=== PATIENT | male | born 1930 | race African-American/Black ===

== ENCOUNTER 2018-07-21 19:09 | Inpatient (IN) | payer OTHER ==
[2018-07-21] MEDS ORDERED: NA CHLORIDE 0.9% 1,000 ML ONE ×2 (19:55→22:50)
[2018-07-21] MEDS ORDERED: LEVALBUTEROL 1.25 MG/3 ML NEB ONE (19:55)
[2018-07-21] MEDS ORDERED: IPRATROPIUM BROM 0.5MG/2.5ML ONE (19:55)
[2018-07-21 20:10] LABS: Absolute Lymphocytes (CBC) 2.2 K/uL (0.7-4.9); Absolute Monocytes 0.6 K/uL (0.1-1.3); Absolute Neutrophil 4.6 K/uL (1.8-8.0); Basophils % 0.5 % (0-1.3); Eosinophils % 1.9 % (0-4.4); Hematocrit 41.5 % (39.6-49.0); Lymphocytes % 28.7 % (15.3-44.8); MCH 28.3 pg (27.0-35.0); MCV 86.1 fL (80-100); Monocytes % 8.2 % (3.3-12.3); RBC Red Blood Cell Count 4.83 M/uL (4.33-5.43)
[2018-07-21 20:18] LABS: Protime INR 1.12
[2018-07-21 20:40] LABS: Albumin 2.4 g/dL (3.4-5.0); Bilirubin Direct 0.1 mg/dL (0-0.2); Bilirubin Total 0.4 mg/dL (0.2-1.0); Magnesium 1.8 mg/dL (1.8-2.4); Protein, Total 5.7 g/dL (6.4-8.2); Troponin (Emerg Dept Use Only) 0.07 ng/mL (0.0-0.045)
[2018-07-21 20:42] LABS: Potassium 2.9 mmol/L (3.5-5.1)
[2018-07-21] MEDS ORDERED: AZITHROMYCIN 500 MG/250 ML BAG ONE (20:52)
[2018-07-21] MEDS ORDERED: CEFTRIAXONE/SWI 1gm 1 GM/10 ML SYR ONE (20:52)
[2018-07-21] MEDS ORDERED: D50W 25 GM/50 ML SYRINGE IV ONE (21:20)
--- NOTE | 2018-07-21 21:41 | ER ---
Nurse's Notes [facility] Name: Rupert Cole Jr Age: 88 yrs Sex: Male : 1930 Arrival Date: 07/21/2018 Time: 19:11 Bed 15 Private MD: Diagnosis: Cough;Dehydration;Hypokalemia;Pneumonia due to other specified bacteria Presentation: 07/21 19:19 Presenting complaint: Patient states: Persistent cough and right upper back pain for 3 aj weeks. Denies fever. Transition of care: patient was not received from another setting of care. Onset of symptoms was July 04, 2018. Risk Assessment: Do you want to hurt yourself or someone else? Patient reports no desire to harm self or others. Initial Sepsis Screen: Does the patient meet any 2 criteria? No. Patient's initial sepsis screen is negative. Does the patient have a suspected source of infection? No. Patient's initial sepsis screen is negative. Care prior to arrival: None. 19:19 Method Of Arrival: Ambulatory aj 19:19 Acuity: NHUNG 3 aj Triage Assessment: 19:21 General: Appears in no apparent distress. comfortable, Behavior is calm, cooperative, aj appropriate for age. Pain: Complains of pain in right scapular area and right subscapular area. Neuro: Level of Consciousness is awake, alert, obeys commands, Oriented to person, place, time, situation, Appropriate for age. Respiratory: Reports cough that is persistent Airway is patent Respiratory effort is even, unlabored, Respiratory pattern is regular, symmetrical. Derm: Skin is intact, is healthy with good turgor, Skin is pink, warm \T\ dry. normal. Musculoskeletal: Circulation, motion, and sensation intact. Reports pain in right scapular area and right subscapular area. Historical: - Allergies: 19:21 No Known Allergies; aj - Home Meds: 19:21 pravastatin 80 mg oral tab 1 tab once daily [Active]; metoprolol tartrate 50 mg Oral aj tab once daily [Active]; amlodipine 5 mg tab 1 tab once daily [Active]; losartan-hydrochlorothiazide 50-12.5 mg oral tab 1 tab once daily [Active]; aspirin 81 mg Oral chew 1 tab once daily [Active]; - PMHx: 19:21 Hypertension; aj - PSHx: 19:21 None; aj - Immunization history:: Adult Immunizations up to date. - Social history:: Smoking status: Patient/guardian denies using tobacco. - Ebola Screening: : Patient negative for fever greater than or equal to 101.5 degrees Fahrenheit, and additional compatible Ebola Virus Disease symptoms Patient denies exposure to infectious person Patient denies travel to an Ebola-affected area in the 21 days before illness onset No symptoms or risks identified at this time. - Family history:: not pertinent. Screenin:19 Abuse screen: Denies threats or abuse. Nutritional screening: No deficits noted. tl2 Tuberculosis screening: No symptoms or risk factors identified. Fall Risk Gait- Weak (10 pts.). Assessment: 19:30 General: Appears in no apparent distress. uncomfortable, Behavior is calm, cooperative, tl2 appropriate for age. General: Diagnosed with pneumonia by PCP, told to come to ER. Pain: Complains of pain in right mid back and right subscapular area Pain does not radiate. Neuro: Level of Consciousness is awake, alert, obeys commands, Oriented to person, place, time, situation. Cardiovascular: Denies chest pain. Respiratory: Reports shortness of breath cough that is pain with cough Airway is patent Respiratory effort is even, unlabored, Respiratory pattern is regular, symmetrical, Breath sounds are coarse bilaterally. GI: No signs and/or symptoms were reported involving the gastrointestinal system. Derm: Skin is normal. Vital Signs: 19:21 BP 142 / 56; Pulse 89; Resp 17; Temp 98.6; Pulse Ox 98% on R/A; Weight 79.38 kg; Height aj 5 ft. 9 in. (175.26 cm); 20:50 BP 144 / 63; Pulse 79; Resp 20; Pulse Ox 96% on R/A; tl2 21:39 BP 131 / 62; Pulse 83; Resp 17; Pulse Ox 98% on R/A; mt 22:33 BP 122 / 62; Pulse 83; Resp 20; Pulse Ox 100% on R/A; tl2 19:21 Body Mass Index 25.84 (79.38 kg, 175.26 cm) ED Course: 19:11 Patient arrived in ED. rg4 19:19 Triage completed. aj 19:21 Arm band placed on right wrist. Patient placed in an exam room. aj 19:28 Ronaldo Mahajan MD is Attending Physician. prakash 19:32 Missed attempt(s): 22 gauge in left antecubital area. Bleeding controlled, band aid mt applied, catheter tip intact. 19:43 January Barboza, RN is Primary Nurse. tl2 20:09 Radiology exam delayed due to lab results not completed at this time. (BUN/Creatinine). nj 20:12 Influenza Screen (a \T\ B) Sent. tl2 20:13 XRAY Chest (1 view) In Process Unspecified. EDMS 20:32 Radiology exam delayed due to lab results not completed at this time. (BUN/Creatinine). nj 20:40 Radiology exam delayed due to lab results not completed at this time. (BUN/Creatinine). nj 21:33 Radiology exam delayed due to patient is in with dr mahajan getting ej at this time. vr 21:39 Lynda Santos MD is Hospitalizing Provider. [facility] 21:[address] nj 21:46 Chest Abdomen Pelvis Wo Con CT: no oral no iv In Process Unspecified. EDMS 21:46 CT completed. Patient tolerated procedure well. Patient moved back from CT. nj 22:24 Notified ED physician of a critical lab result(s). lactate of 2.1 Dr Mahajan notified. bb 23:19 Patient has correct armband on for positive identification. Placed in gown. Bed in low tl2 position. Call light in reach. Side rails up X2. Adult w/ patient. 23:19 No provider procedures requiring assistance completed. tl2 23:21 Inserted saline lock: 18 gauge in right EJ, using aseptic technique. placed by [facility] tl2 Patient admitted, IV remains in place. Administered Medications: 20:12 Drug: NS 0.9% 1000 ml Route: IV; Rate: 75 ml/hr; Site: left hand; tl2 23:23 Follow up: IV Status: Infusion continued upon admission tl2 20:12 Drug: Xopenex 1.25 mg Route: Inhalation; tl2 20:12 Drug: AtroVENT Aerosol 0.5 mg Route: Inhalation; tl2 20:51 Drug: Rocephin - (cefTRIAXone) 1 grams Route: IVPB; Infused Over: 30 mins; Site: left tl2 hand; 22:30 Follow up: IV Status: Completed infusion tl2 20:51 Drug: Zithromax 500 mg Route: IVPB; Infused Over: 1 hrs; Site: left hand; tl2 22:29 Follow up: IV Status: Completed infusion tl2 21:45 Drug: D50W 25 ml Route: IVP; Site: left hand; tl2 22:00 Follow up: Response: No adverse reaction; Blood sugar is elevated tl2 21:51 Drug: NS 0.9% 1000 ml Route: IV; Rate: 1 bolus; Site: left hand; tl2 23:22 Follow up: IV Status: Completed infusion; IV Intake: 1000ml tl2 22:29 Drug: Potassium Chloride 20 mEq Route: IV; Rate: per protocol; Site: left hand; tl2 23:22 Follow up: IV Status: Infusion continued upon admission tl2 23:22 Not Given (sent upstairs with pt): NS 0.9% with KCl 20 mEq/L 1000 ml IV at 125 ml/hr tl2 continuous Point of Care Testing: Blood Glucose: 22:30 Blood Glucose: 115 mg/dL; tl2 Ranges: Intake: 23:22 IV: 1000ml; Total: 1000ml. tl2 Outcome: 21:40 Decision to Hospitalize by Provider. prakash 23:21 Admitted to Med/surg accompanied by nurse, family with patient, via stretcher, room tl2 231, with chart, Report called to DANIELA Schafer 23:21 Condition: stable 23:21 Discharge instructions given to patient, family, Instructed on the need for admit. 07/22 00:05 Patient left the ED. tl2 Signatures: Dispatcher [employer] EDEdie Wells, Ronaldo Zhu RN, MD MD cha Ballard, Brenda, RN RN bb Davis, Victoria vr Knox, Taylor, RN RN 2 Karen Cook Nathan nj Thompson, Estela mn
--- NOTE | 2018-07-21 21:41 | EDPHYS ---
Physician Documentation [facility] Name: Rupert Cole Jr Age: 88 yrs Sex: Male : 1930 Arrival Date: 07/21/2018 Time: 19:11 Bed 15 Private MD: ED Physician Ronaldo Mahajan HPI: 07/21 19:41 This 88 yrs old Black Male presents to ER via Ambulatory with complaints of Cough, Back prakash Pain. 19:41 The patient or guardian reports cough. Onset: The symptoms/episode began/occurred 2 prakash day(s) ago. Severity of symptoms: At their worst the symptoms were mild, in the emergency department the symptoms are unchanged. Modifying factors: The symptoms are alleviated by nothing, the symptoms are aggravated by supine. Associated signs and symptoms: The patient has no apparent associated signs or symptoms. The patient has not experienced similar symptoms in the past. Historical: - Allergies: 19:21 No Known Allergies; aj - Home Meds: 19:21 pravastatin 80 mg oral tab 1 tab once daily [Active]; metoprolol tartrate 50 mg Oral aj tab once daily [Active]; amlodipine 5 mg tab 1 tab once daily [Active]; losartan-hydrochlorothiazide 50-12.5 mg oral tab 1 tab once daily [Active]; aspirin 81 mg Oral chew 1 tab once daily [Active]; - PMHx: 19:21 Hypertension; aj - PSHx: 19:21 None; aj - Immunization history:: Adult Immunizations up to date. - Social history:: Smoking status: Patient/guardian denies using tobacco. - Ebola Screening: : Patient negative for fever greater than or equal to 101.5 degrees Fahrenheit, and additional compatible Ebola Virus Disease symptoms Patient denies exposure to infectious person Patient denies travel to an Ebola-affected area in the 21 days before illness onset No symptoms or risks identified at this time. - Family history:: not pertinent. ROS: 19:41 Constitutional: Negative for fever, chills, and weight loss, Eyes: Negative for injury, prakash pain, redness, and discharge, ENT: Negative for injury, pain, and discharge, Neck: Negative for injury, pain, and swelling, Cardiovascular: Negative for chest pain, palpitations, and edema, Abdomen/GI: Negative for abdominal pain, nausea, vomiting, diarrhea, and constipation, : Negative for injury, bleeding, discharge, and swelling, MS/Extremity: Negative for injury and deformity, Skin: Negative for injury, rash, and discoloration, Neuro: Negative for headache, weakness, numbness, tingling, and seizure, Psych: Negative for depression, anxiety, suicide ideation, homicidal ideation, and hallucinations, Allergy/Immunology: Negative for hives, rash, and allergies, Endocrine: Negative for neck swelling, polydipsia, polyuria, polyphagia, and marked weight changes, Hematologic/Lymphatic: Negative for swollen nodes, abnormal bleeding, and unusual bruising. 19:41 Respiratory: Positive for cough, pleurisy. 19:41 Back: Positive for pain at rest, pain with movement, of the right subscapular area and right mid back. Exam: 19:41 Constitutional: This is a well developed, well nourished patient who is awake, alert, prakash and in no acute distress. Head/Face: Normocephalic, atraumatic. Eyes: Pupils equal round and reactive to light, extra-ocular motions intact. Lids and lashes normal. Conjunctiva and sclera are non-icteric and not injected. Cornea within normal limits. Periorbital areas with no swelling, redness, or edema. ENT: Nares patent. No nasal discharge, no septal abnormalities noted. Tympanic membranes are normal and external auditory canals are clear. Oropharynx with no redness, swelling, or masses, exudates, or evidence of obstruction, uvula midline. Mucous membranes moist. Neck: Trachea midline, no thyromegaly or masses palpated, and no cervical lymphadenopathy. Supple, full range of motion without nuchal rigidity, or vertebral point tenderness. No Meningismus. Chest/axilla: Normal chest wall appearance and motion. Nontender with no deformity. No lesions are appreciated. Cardiovascular: Regular rate and rhythm with a normal S1 and S2. No gallops, murmurs, or rubs. Normal PMI, no JVD. No pulse deficits. Back: No spinal tenderness. No costovertebral tenderness. Full range of motion. Male : Normal genitalia with no discharge or lesions. Skin: Warm, dry with normal turgor. Normal color with no rashes, no lesions, and no evidence of cellulitis. MS/ Extremity: Pulses equal, no cyanosis. Neurovascular intact. Full, normal range of motion. Neuro: Awake and alert, GCS 15, oriented to person, place, time, and situation. Cranial nerves II-XII grossly intact. Motor strength 5/5 in all extremities. Sensory grossly intact. Cerebellar exam normal. Normal gait. Psych: Awake, alert, with orientation to person, place and time. Behavior, mood, and affect are within normal limits. 19:41 Respiratory: the patient does not display signs of respiratory distress, Respirations: no acute changes, labored breathing, is not present, Breath sounds: rales, that are mild, are located in both bases, rhonchi, that are mild, are scattered. 19:41 Musculoskeletal/extremity: Exam is negative for acute changes, ROM: no acute changes, Circulation is intact in all extremities. DVT Exam: No signs of deep vein thrombosis. no pain, no swelling, no tenderness, negative Homans' sign noted on exam, no appreciated bluish discoloration, no erythema, no increased warmth. Vital Signs: 19:21 BP 142 / 56; Pulse 89; Resp 17; Temp 98.6; Pulse Ox 98% on R/A; Weight 79.38 kg; Height aj 5 ft. 9 in. (175.26 cm); 20:50 BP 144 / 63; Pulse 79; Resp 20; Pulse Ox 96% on R/A; tl2 21:39 BP 131 / 62; Pulse 83; Resp 17; Pulse Ox 98% on R/A; mt 22:33 BP 122 / 62; Pulse 83; Resp 20; Pulse Ox 100% on R/A; tl2 19:21 Body Mass Index 25.84 (79.38 kg, 175.26 cm) Procedures: 21:39 Peripheral line: by aseptic technique a peripheral line was placed in the right [facility] external jugular vein. MDM: 19:28 Patient medically screened. [facility] 19:41 Data reviewed: vital signs, nurses notes, lab test result(s), EKG, radiologic studies, [facility] CT scan, plain films. 07/21 19:40 Order name: Basic Metabolic Panel; Complete Time: 20:57 [facility] 07/21 19:40 Order name: CBC with Diff; Complete Time: 20:57 [facility] 07/21 19:40 Order name: LFT's; Complete Time: 20:57 [facility] 07/21 19:40 Order name: Magnesium; Complete Time: 20:57 [facility] 07/21 19:40 Order name: NT PRO-BNP; Complete Time: 20:57 [facility] 07/21 19:40 Order name: PT-INR; Complete Time: 20:57 [facility] 07/21 19:40 Order name: Troponin (emerg Dept Use Only); Complete Time: 20:57 [facility] 07/21 19:40 Order name: Lipase; Complete Time: 20:57 [facility] 07/21 19:40 Order name: Blood Culture Adult (2) [facility] 07/21 19:40 Order name: Procalcitonin; Complete Time: 20:57 [facility] 07/21 19:40 Order name: Lactate; Complete Time: 20:57 [facility] 07/21 19:41 Order name: Influenza Screen (a \T\ B); Complete Time: 20:57 [facility] 07/21 21:40 Order name: Lactate nj 07/21 21:40 Order name: Lactate EDNV 07/21 19:40 Order name: XRAY Chest (1 view) [facility] 07/21 19:40 Order name: EKG; Complete Time: 19:41 [facility] 07/21 19:40 Order name: Cardiac monitoring; Complete Time: 19:44 [facility] 07/21 21:16 Order name: Chest Abdomen Pelvis Wo Con CT: no oral no iv [facility] 07/21 22:44 Order name: Urine Dipstick--Ancillary (enter results) tn 07/21 23:19 Order name: Urine Dipstick-Ancillary [facility] 07/21 19:40 Order name: EKG - Nurse/Tech; Complete Time: 19:55 [facility] 07/21 19:40 Order name: IV Saline Lock; Complete Time: 19:43 [facility] 07/21 19:40 Order name: Labs collected and sent; Complete Time: 19:43 [facility] 07/21 19:40 Order name: O2 Per Protocol; Complete Time: 19:43 [facility] 07/21 19:40 Order name: O2 Sat Monitoring; Complete Time: 19:43 [facility] Administered Medications: 20:12 Drug: NS 0.9% 1000 ml Route: IV; Rate: 75 ml/hr; Site: left hand; tl2 23:23 Follow up: IV Status: Infusion continued upon admission tl2 20:12 Drug: Xopenex 1.25 mg Route: Inhalation; tl2 20:12 Drug: AtroVENT Aerosol 0.5 mg Route: Inhalation; tl2 20:51 Drug: Rocephin - (cefTRIAXone) 1 grams Route: IVPB; Infused Over: 30 mins; Site: left tl2 hand; 22:30 Follow up: IV Status: Completed infusion tl2 20:51 Drug: Zithromax 500 mg Route: IVPB; Infused Over: 1 hrs; Site: left hand; tl2 22:29 Follow up: IV Status: Completed infusion tl2 21:45 Drug: D50W 25 ml Route: IVP; Site: left hand; tl2 22:00 Follow up: Response: No adverse reaction; Blood sugar is elevated tl2 21:51 Drug: NS 0.9% 1000 ml Route: IV; Rate: 1 bolus; Site: left hand; tl2 23:22 Follow up: IV Status: Completed infusion; IV Intake: 1000ml tl2 22:29 Drug: Potassium Chloride 20 mEq Route: IV; Rate: per protocol; Site: left hand; tl2 23:22 Follow up: IV Status: Infusion continued upon admission tl2 23:22 Not Given (sent upstairs with pt): NS 0.9% with KCl 20 mEq/L 1000 ml IV at 125 ml/hr tl2 continuous Point of Care Testing: Blood Glucose: 22:30 Blood Glucose: 115 mg/dL; tl2 Ranges: Critical Glucose Levels:Adult <50 mg/dl or >400 mg/dl <40 mg/dl or >180 mg/dl Disposition: 07/21/18 21:40 Hospitalization ordered by Lynda Santos for Inpatient Admission. Preliminary diagnosis are Cough, Dehydration, Hypokalemia, Pneumonia due to other specified bacteria. - Bed requested for Telemetry/MedSurg (Inpatient). - Status is Inpatient Admission. tl2 - Condition is Fair. - Problem is new. - Symptoms have improved. UTI on Admission? No Signatures: Dispatcher [employer] [facility] Lucie Arshad RN RN kl Myers, Amanda, RN RN aj Anderson, Corey, MD MD cha Knox, Taylor, RN RN tl2 Corrections: (The following items were deleted from the chart) 21:18 19:41 Chest For PE Angio+CT.RAD.BRZ ordered. [facility] 22:50 21:40 Hospitalization Ordered by Lynda Santos MD for Inpatient Admission. Preliminary kl diagnosis is Cough; Dehydration; Hypokalemia. Bed requested for Telemetry/MedSurg (Inpatient). Status is Inpatient Admission. Condition is Fair. Problem is new. Symptoms have improved. UTI on Admission? No. prakash 22:57 22:50 07/21/2018 21:40 Hospitalization Ordered by Lynda Santos MD for Inpatient prakash Admission. Preliminary diagnosis is Cough; Dehydration; Hypokalemia. Bed requested for Telemetry/MedSurg (Inpatient). Status is Inpatient Admission. Condition is Fair. Problem is new. Symptoms have improved. UTI on Admission? No. kl 07/22 00:05 07/21 22:57 07/21/2018 21:40 Hospitalization Ordered by Lynda Santos MD for Inpatient tl2 Admission. Preliminary diagnosis is Cough; Dehydration; Hypokalemia; Pneumonia due to other specified bacteria. Bed requested for Telemetry/MedSurg (Inpatient). Status is Inpatient Admission. Condition is Fair. Problem is new. Symptoms have improved. UTI on Admission? No. prakash
[2018-07-21] MEDS ORDERED: KCL 20 MEQ/100 mL IVPB 20 MEQ/100 ML BAG IV ONE (22:05)
--- NOTE | 2018-07-21 22:07 | RAD REPORT ---
EXAM DESCRIPTION: Herve Single View07/21/2018 8:13 pm CLINICAL HISTORY: Cough COMPARISON: none FINDINGS: Mild opacity is present within the mid right lung. Left lung appears clear. The heart is n ormal size IMPRESSION: Mild right lung opacity probably represents pneumonia
--- NOTE | 2018-07-21 22:21 | RAD REPORT ---
EXAM DESCRIPTION: CT - Chest Abd Pelvis Wo Con - 07/21/2018 9:46 pm CLINICAL HISTORY: Cough/abdominal pain COMPARISON: None TECHNIQUE: Computed axial tomography of the chest, abdomen and pelvis was obtained. Oral contrast wa s not given. IV contrast was not requested. All CT scans are performed using dose optimization technique as appropriate and may include automated exposure control or mA/KV adjustment according to patient size. FINDINGS: The evaluation of mediastinum, bowel sam, vessels and solid organs is limited secondary to the lack of IV contrast administration No mediastinal or hilar lymphadenopathy is seen. A pleural effusion is not present. A pericardial effusion is not seen. 4 centimeter right upper lobe consolidation is seen. The left lung is clear. The liver, spleen, pancreas, and adrenal appear grossly normal. A 7.8 centimeter low to intermediate density mass extends off the upper pole of the right kidney. Sma ll bilateral renal cysts are suspected. There is no evidence of diverticulitis. The appendix is normal Postsurgical changes of a prostatectomy with lymph node dissection is seen. A 1 centimeters cyst is present within the subcutaneous tissues of right back. Mild to moderate anterior subluxation of L5 on S1 is seen. Spondylolysis involves L5 IMPRESSION: Mild right upper lobe consolidation probably represents pneumonia. This should be follow ed until it is clear to help exclude post obstructive process/underlying mass 7.8 centimeter right renal is nonspecific without IV contrast. It may represent neoplasm. Ultrasound is recommended.
[2018-07-21] MEDS ORDERED: NS KCL 20MEQ 1,000 ML IV ONE (22:50)
[2018-07-21 23:19] LABS: Urine Blood NEGATIVE (NEG); Urine Glucose NEGATIVE (NEG); Urine Protein NEGATIVE (NEG); Urine pH 5.5 (5.0-7.0)
[2018-07-21] MEDS ORDERED: ACETAMINOPHEN 500 MG TAB PO PRN (23:53)
[2018-07-21] MEDS ORDERED: ONDANSETRON 4 MG/2 ML VIAL IV PRN (23:53)
[2018-07-21] MEDS: NA CHLORIDE 0.9% 1,000 ML IV SCH (23:53)
[2018-07-22] MEDS: Levofloxacin 750mg IV 750 MG/150 ML BAG IV SCH (01:03)
[2018-07-22] MEDS ORDERED: KCL 20 MEQ/100 mL IVPB 20 MEQ/100 ML BAG IV SCH (02:00)
[2018-07-22 03:37] LABS: Urine Appearance CLEAR; Urine Bilirubin NEGATIVE (NEG); Urine Blood NEGATIVE (NEG); Urine Color YELLOW; Urine Glucose NEGATIVE (NEG); Urine Protein NEGATIVE (NEG); Urine Specific Gravity 1.015 (1.005-1.030); Urine pH 6.5 (5.0-7.0)
[2018-07-22 03:47] LABS: Urine Microscopic Reflex NO UMIC
[2018-07-22] MEDS: NA CHLORIDE 0.9% 1,000 ML IV SCH ×3 (05:41→15:13)
--- NOTE | 2018-07-22 05:47 | P.HP ---
Certification for Inpatient Patient admitted to: Inpatient With expected LOS: >2 Midnights Practitioner: I am a practitioner with admitting privileges, knowledge of patient current condition, hospital course, and medical plan of care. Services: Services provided to patient in accordance with Admission requirements found in Title 42 Section 412.3 of the Code of Federal Regulations Patient History Date of Service: 07/21/18 Reason for admission: Pneumonia History of Present Illness: Mr Cole is a 89-year-old male with history of CVA, hypertension, who start about 3 weeks ago with productive cough, right upper back pain and progressive shortness of breath. Initially he had yellowish secretions and likely it became bloody. There was no history of fever or chills. Today the patient came to ER for evaluation, since his symptoms got worse. Lab work remarkable for normal WBC count, normal procalcitonin but elevated lactate 3.5. Chest x- ray consistent with right upper lobe infiltrate. CT chest/abdomen and pelvis shows again opacifications on the right side consistent with pneumonia, also incidental 7.8 cm right renal mass found which needs further workup. Allergies No Known Allergies Allergy (Verified 07/21/18 23:52) Home medications list reviewed: Yes Home Medications: Amlodipine [Norvasc] 5 mg PO BEDTIME 07/22/18 Aspirin [Aspirin EC 81 MG] 120 mg PO DAILY 07/22/18 Losartan/Hydrochlorothiazide [Losartan-Hctz 50-12.5 mg Tab] 1 each PO DAILY Metoprolol Succinate [Toprol Xl] 50 mg PO BEDTIME 07/22/18 Pravastatin Sodium 80 mg PO BEDTIME 07/22/18 - Past Medical/Surgical History Has patient received pneumonia vaccine in the past: No Diabetic: No -: cva 2013 -: hypertension -: arthritis -: abdomen surgery -: protate surgery - Family History Family History: Reviewed- Non-Contributory - Social History Smoking Status: Never smoker Alcohol use: No CD- Drugs: No Caffeine use: Yes Place of Residence: Home Review of Systems 10-point ROS is otherwise unremarkable Physical Examination - Vital Signs Temperature: 97.6 F Blood Pressure: 132/61 Pulse: 75 Respirations: 18 Pulse Ox (%): 98 - Physical Exam General: Alert, In no apparent distress HEENT: Atraumatic, PERRLA, Mucous membr. moist/pink, EOMI, Sclerae nonicteric Neck: Supple, 2+ carotid pulse no bruit, No LAD, Without JVD or thyroid abnormality Respiratory: Normal air movement, Crackles/rales (Right base crackles) Cardiovascular: Regular rate/rhythm, Normal S1 S2 Gastrointestinal: Normal bowel sounds, No tenderness Musculoskeletal: No tenderness Integumentary: No rashes Neurological: Normal speech, Normal strength at 5/5 x4 extr, Normal tone, Normal affect Lymphatics: No axilla or inguinal lymphadenopathy - Studies Laboratory Data (last 24 hrs) 07/21/18 19:45: PT 13.2 H, INR 1.12 07/21/18 19:45: WBC 7.6, Hgb 13.7, Hct 41.5, Plt Count 172 07/21/18 19:45: Sodium 148 H, Potassium 2.9 L*, BUN 22 H, Creatinine 1.00, Glucose 71 L, Magnesium 1.8, Total Bilirubin 0.4, AST 13 L, ALT 16, Alkaline Phosphatase 63, Lipase 92 Microbiology Data (last 24 hrs): 07/21/18 19:57 Nasopharnyx Influenza Type A Antigen Screen - Final 07/21/18 19:57 Nasopharnyx Influenza Type B Antigen Screen - Final Assessment and Plan - Problems (Diagnosis) (1) Pneumonia Current Visit: Yes Status: Acute Qualifiers: Pneumonia type: due to unspecified organism Laterality: right Lung location: upper lobe of lung Qualified Code(s): J18.1 - Lobar pneumonia, unspecified organism (2) Hypertension Current Visit: Yes Status: Acute Qualifiers: Hypertension type: essential hypertension Qualified Code(s): I10 - Essential (primary) hypertension - Plan The patient will be admitted to the hospital due to right upper lobe pneumonia. Will order empiric treatment with Levaquin. Blood and sputum culture have been ordered. Order renal ultrasound to address renal mass. - Advance Directives Does patient have a Living Will: No Does patient have a Durable POA for Healthcare: No - Code Status/Comfort Care Code Status Assessed: Yes Code Status: Full Code
[2018-07-22 06:39] LABS: Absolute Lymphocytes (CBC) 1.6 K/uL (0.7-4.9); Absolute Monocytes 0.7 K/uL (0.1-1.3); Absolute Neutrophil 4.6 K/uL (1.8-8.0); Basophils % 0.5 % (0-1.3); Eosinophils % 1.5 % (0-4.4); Hematocrit 35.3 % (39.6-49.0); Lymphocytes % 22.6 % (15.3-44.8); MCH 28.5 pg (27.0-35.0); MCV 85.5 fL (80-100); MPV 10.5 fL (7.6-11.3); Monocytes % 10.1 % (3.3-12.3); RBC Red Blood Cell Count 4.13 M/uL (4.33-5.43)
--- NOTE | 2018-07-22 06:50 | EKG ---
Test Date: 2018-07-21 Test Time: 19:50:51 Director Emergency Services: JIMMY MEASUREMENT RESULTS: Intervals: Rate: 75 TN: 172 QRSD: 82 QT: 396 QTc: 442 Meredith: P: 77 TN: 172 QRS: 20 T: 48 INTERPRETIVE STATEMENTS: Normal sinus rhythm Anteroseptal infarct, age undetermined Abnormal ECG No previous ECG available for comparison Electronically Signed On 07-22-18 06:49:04 CDT by Mario Doe
[2018-07-22 06:52] LABS: Potassium 3.9 mmol/L (3.5-5.1)
[2018-07-22] MEDS ORDERED: POTASSIUM CL SA 10 MEQ TAB PO ONE (06:55)
--- NOTE | 2018-07-22 12:34 | RAD REPORT ---
EXAM DESCRIPTION: US - Renal Ultrasound-Complete - 07/22/2018 12:23 pm CLINICAL HISTORY: Chest pain, abdominal pain, abnormal CT study COMPARISON: CT chest abdomen and pelvis July 21 FINDINGS: The right kidney is grossly abnormal. In the upper pole of the right kidney there is a 9.3 x 7.2 x 8.3 lobulated solid mass. This is the correlate to the CT finding. This is not a cyst or com plex cyst in appearance. No calcifications seen. Large renal cell carcinoma is the most likely etiolo gy. Patient does have 2 benign thin-walled anechoic cysts in the mid right kidney - 2.5 and 2.1 cm in siz e. No right-sided hydronephrosis. The left kidney measures 10.5 x 5.3 x 4.8 cm. Left-sided cortical t hickness and echogenicity are normal.. No left-sided hydronephrosis or solid mass. Left renal benign cortical cysts are present largest at 2.3 cm. No bladder wall thickening or mass. No intraluminal stone or mass. IMPRESSION: Large 9 centimeter solid mass upper pole right kidney as a correlate to the CT finding. Renal cell carcinoma is the most likely etiology. Bilateral renal cysts. No contralateral left renal solid mass.
--- NOTE | 2018-07-22 13:22 | PN ---
Date of Progress Note: 07/22/2018 History: The patient seen and examined. Chart reviewed and case discussed with RN. Family at the [facility]. Treatment plan explained. All questions answered. The patient states his shortness of selena th and coughing is better, not really producing much sputum. Review of Systems: Negative except as above. Code Status: Full. Physical Examination: Vital Signs: Temperature 97.6, heart rate 75, blood pressure 132/61, respirations 18, OS 98% on room air. General: Awake, alert, oriented x3 ill-appearing, elderly male. CV: S1, S2. No murmurs. Regular rate and rhythm. Peripheral pulses present. Respiratory: Diminished breath sounds on the right. No rales, wheezing, crackles. No use of access ory muscles. Gastrointestinal: Abdomen is soft, nontender, nondistended. Positive bowel sounds. Extremities: No clubbing, cyanosis, or edema. Neurologic: Nonfocal. Laboratory Data: Sodium 142, potassium at 3.9, chloride 109, CO2 27, BUN 23, creatinine 1.1, glucose 89. Lactate 1.2, calcium 8.4, magnesium 2. WBC 7, H and H 11.8 and 35.3, platelets 139. Sputum cu ltures and blood cultures pending. Influenza screen negative. CT scan shows right upper lobe consol idation, likely pneumonia, a 7.8 cm right renal lesion, nonspecific. Assessment And Plan: An 88-year-old male with: 1.Right upper lobe pneumonia. Continue with IV antibiotics and follow up with cultures. Speech willie luation. Rule out aspiration. 2.Essential hypertension, stable. 3.Generalized osteoarthritis. 4.Mixed hyperlipidemia. Continue statin. 5.History of cerebrovascular accident without any residual deficits. 6.History of prostate cancer status post surgery. 7.Liver lesion. We will obtain ultrasound for further evaluation. 8.Gastrointestinal, deep vein thrombosis prophylaxis addressed. SA/MODL Voice ID: [id number] Report ID: [id number]
[2018-07-22] MEDS: AMLODIPINE 5 MG TAB PO SCH (21:54)
[2018-07-22] MEDS: METOPROLOL XL 50 MG TAB PO SCH (21:55)
[2018-07-22] MEDS: ATORVASTATIN 10 MG TAB PO SCH (21:55)
[2018-07-23] MEDS: NA CHLORIDE 0.9% 1,000 ML IV SCH ×2 (01:04→05:53)
[2018-07-23] MEDS: Levofloxacin 750mg IV 750 MG/150 ML BAG IV SCH (01:04)
[2018-07-23] MEDS ORDERED: GUAIFENESIN/DM 5 ML UCUP PO ONE ×2 (02:43→02:49)
[2018-07-23 06:19] LABS: Potassium 3.7 mmol/L (3.5-5.1)
[2018-07-23] MEDS: LOSARTAN/HCTZ 50-12.5 PO SCH (08:43)
[2018-07-23] MEDS: ASPIRIN EC 81 MG TAB PO SCH (08:44)
[2018-07-23] MEDS ORDERED: POTASSIUM 25 MEQ EFFERV TAB PO ONE (09:00)
[2018-07-23] MEDS: ALBUTEROL 2.5 MG/3 ML NEB SOL NEB SCH ×2 (13:58→19:53)
--- NOTE | 2018-07-23 15:52 | PN ---
Date of Progress Note: 07/23/2018 History: The patient seen and examined. Chart reviewed and case discussed with RN. [facility]. Treatment plan explained. All questions answered. I spoke with Dr. Bansal concerning narayan bowen's hemoptysis. The patient was informed of his renal ultrasound results yesterday stating that m ost likely he has a right-sided breast cancer. He met with his family members and discussed options including possible biopsy and further diagnostic evaluation versus doing nothing and observing the ca ncer due to his multiple comorbidities as he may not be a good candidate for surgery and chemoradiati on, and the patient has opted for not pursuing diagnosis any further. Review of Systems: Negative except as above. The patient does report some cerumen impaction in his ears. Medications: List reviewed. Physical Examination: Vital Signs: Temperature 98, heart rate 80, blood pressure 140/63, respirations 18, O2 96% on room a ir. General: Awake, alert, oriented x3, elderly male, somewhat ill-appearing. CV: S1 and S2. No murmurs. Peripheral pulses present bilaterally. Respiratory: Diminished breath sounds on the right some mild wheezing gastrointestinal. Abdomen: Abdomen is soft, nontender, nondistended. Positive bowel sounds. Extremities: No clubbing, cyanosis, or edema. Neurologic: Nonfocal. Laboratory Data: Sodium 142, potassium 3.7, chloride 108, CO2 27, BUN 16, creatinine 1.1, glucose 83 , calcium 8.5. Blood cultures no growth to date. Sputum culture shows normal respiratory eduard. Assessment And Plan: An 88-year-old male with: 1.Right upper lobe pneumonia. Continue IV antibiotics. Cultures negative to date. The patient was assessed by speech therapist, recommended aspiration precautions. Otherwise, continue with his regu lar diet, improving. 2.Hemoptysis, may be secondary to pneumonia versus other. CT chest done upon admission did not show any specific mass or source of bleeding. We will obtain pulmonology consultation. No chemical anti coagulation due to hemoptysis and monitor H and H. 3.Essential hypertension, stable. 4.Generalized osteoarthritis. Continue pain medications. 5.Mixed hyperlipidemia. Continue statin. 6.History of cerebrovascular accident without any residual deficits. 7.History of prostate cancer status post surgery. 8.Right-sided 9 cm solid mass, likely renal cell carcinoma. The patient does not wish to pursue any further invasive measures and diagnosis, understands that due to his age and other comorbidities he may not be a good candidate for chemotherapy, radiation therapy, and the family have discussed all op tions. Risks and benefits were provided. They do not wish to pursue the diagnosis any further. The y understand that this may result in further worsening of his cancer and spread even leading to his d eath. They voiced understanding. 9.Cerumen impaction. We will start on ear drops. 10.Gastrointestinal and deep venous thrombosis prophylaxis addressed. No chemical anticoagulation d ue to hemoptysis. /KELLEY Voice ID: [id number] Report ID: [id number]
[2018-07-23] MEDS: CARBAMIDE PEROXIDE EAR DROPS (15 mL) EACH EAR SCH (21:00)
[2018-07-23] MEDS: METOPROLOL XL 50 MG TAB PO SCH (21:43)
[2018-07-23] MEDS: ATORVASTATIN 10 MG TAB PO SCH (21:43)
[2018-07-23] MEDS: AMLODIPINE 5 MG TAB PO SCH (21:44)
[2018-07-24] MEDS: ALBUTEROL 2.5 MG/3 ML NEB SOL NEB SCH ×4 (01:19→20:34)
[2018-07-24 05:19] LABS: Absolute Lymphocytes (CBC) 1.7 K/uL (0.7-4.9); Absolute Monocytes 0.7 K/uL (0.1-1.3); Absolute Neutrophil 4.4 K/uL (1.8-8.0); Basophils % 0.4 % (0-1.3); Eosinophils % 1.6 % (0-4.4); Hematocrit 35.1 % (39.6-49.0); Lymphocytes % 24.3 % (15.3-44.8); MCH 27.9 pg (27.0-35.0); MCV 85.1 fL (80-100); MPV 10.9 fL (7.6-11.3); Monocytes % 9.9 % (3.3-12.3); RBC Red Blood Cell Count 4.13 M/uL (4.33-5.43)
[2018-07-24 05:35] LABS: Potassium 3.4 mmol/L (3.5-5.1)
[2018-07-24] MEDS: CARBAMIDE PEROXIDE EAR DROPS (15 mL) EACH EAR SCH (09:00)
[2018-07-24] MEDS: LOSARTAN/HCTZ 50-12.5 PO SCH (09:00)
[2018-07-24] MEDS ORDERED: POTASSIUM 25 MEQ EFFERV TAB PO ONE (09:00)
[2018-07-24] MEDS: ASPIRIN EC 81 MG TAB PO SCH (09:14)
[2018-07-24] MEDS: levoFLOXacin 500 MG TAB PO SCH (09:14)
--- NOTE | 2018-07-24 10:44 | P.CNS ---
Date of Consult: 07/23/18 Chief Complaint: Hemoptysis and pneumonia History of Present Illness: Patient is 88 years of age very hard of hearing admitted to the hospital complaining of hemoptysis this started last was initially with a cough denies any fever or chills was admitted to the hospital was found to have a right upper lobe infiltrate also found to have a mass in the right kidney denies any chest pain no prior history of cardiopulmonary disease denies any urological symptoms Allergies No Known Allergies Allergy (Verified 07/21/18 23:52) Home Medications: Amlodipine [Norvasc] 5 mg PO BEDTIME 07/22/18 Aspirin [Aspirin EC 81 MG] 81 mg PO DAILY 07/22/18 Losartan/Hydrochlorothiazide [Losartan-Hctz 50-12.5 mg Tab] 1 each PO DAILY Metoprolol Succinate [Toprol Xl] 50 mg PO BEDTIME 07/22/18 Pravastatin Sodium 80 mg PO BEDTIME 07/22/18 - Past Medical/Surgical History Diabetic: No -: cva 2013 -: hypertension -: arthritis -: abdomen surgery -: protate surgery - Social History Alcohol use: No CD- Drugs: No Caffeine use: Yes Place of Residence: Home Review of Systems 10-point ROS is otherwise unremarkable General: Weakness Respiratory: Hemoptysis Physical Examination Temp Pulse Resp BP Pulse Ox 97.3 F 75 18 101/70 96 07/24/18 08:00 07/24/18 09:00 07/24/18 08:00 07/24/18 09:00 07/24/18 08:00 General: Alert, Oriented x3 Neck: Supple Respiratory: Clear to auscultation bilaterally Cardiovascular: No edema, Normal S1 S2 Gastrointestinal: Normal bowel sounds, Soft and benign - Problems (1) Pneumonia Current Visit: Yes Status: Acute Plan: Patient is 88 years of age admitted with hemoptysis he does have a right upper lobe infiltrate quite possible that he has endobronchial metastases most likely he has kidney cancer on the right side she does have a very large mass labs chemistry reviewed is only mildly anemic vital sign satisfactory change to p.o. levofloxacin Qualifiers: Pneumonia type: due to unspecified organism Laterality: right Lung location: upper lobe of lung Qualified Code(s): J18.1 - Lobar pneumonia, unspecified organism
--- NOTE | 2018-07-24 10:45 | P.PN ---
Subjective Date of Service: 07/24/18 Chief Complaint: Hemoptysis and pneumonia Subjective: Improving (Patient is doing better hemoptysis resolved) Review of Systems General: Weakness Respiratory: Cough Physical Examination - Vital Signs Temperature: 97.3 F Blood Pressure: 101/70 Pulse: 75 Respirations: 18 Pulse Ox (%): 96 - Physical Exam General: Alert, Oriented x3 Respiratory: Clear to auscultation bilaterally Cardiovascular: Normal S1 S2 Assessment & Plan - Problems (Diagnosis) (1) Pneumonia Current Visit: Yes Status: Acute Plan: Patient is clinically doing well can be discharged home on p.o. levofloxacin for 7 days white count is stable and normal Qualifiers: Pneumonia type: due to unspecified organism Laterality: right Lung location: upper lobe of lung Qualified Code(s): J18.1 - Lobar pneumonia, unspecified organism (2) Renal cell cancer Current Visit: Yes Status: Acute Plan: Patient has a large mass in the right upper pole of the kidney most likely renal cell cancer new diagnosis on ultrasound and CT scan discuss with the hospitalist the family members did not want any interventional procedures biopsies an operation consider discharge home to hospice Qualifiers: Laterality: right Qualified Code(s): C64.1 - Malignant neoplasm of right kidney, except renal pelvis Discharge Plan: Home
--- NOTE | 2018-07-24 18:51 | PN ---
Date of Progress Note: 07/24/2018 Subjective: The patient is seen and examined. Chart reviewed and case discussed with RN and Dr. Daron holt. Family at the bedside. The patient and family decided not to pursue diagnosis of renal cance r further. They did not want any invasive measurements such as biopsies or chemotherapy or radiation therapy or surgery. The patient otherwise doing well. Does not have any significant shortness of b reath. Cough has improved. His hemoptysis has resolved. Review of Systems: Negative except as above. Medications: List reviewed. Physical Examination: Vital Signs: Temperature 97.8, heart rate 76, blood pressure 114/56, respirations 18, O2 98% on room air. General: Awake, alert, oriented x3. Elderly male, in no acute distress. Somewhat ill-appearing. CV: S1, S2. Regular rate and rhythm. Peripheral pulses present. Respiratory: Moving air well bilaterally. No wheezing or stridor. Gastrointestinal: Abdomen is soft, nontender, nondistended. Positive bowel sounds. Extremities: No clubbing, cyanosis, or edema. Neurologic: Nonfocal. Laboratory Data: Sodium 140, potassium 3.4, chloride 107, CO2 27, BUN 17, creatinine 1.2, glucose 94 , calcium 8.7. WBC is 6.9, H and H 11.5 and 35.1, platelets 142, neutrophils 63%. UA negative. Assessment And Plan: An 88-year-old male with: 1.Right upper lobe pneumonia. Continue Levaquin. Significantly improved. No further shortness of breath. The patient's cough has improved. Denies any further hemoptysis. Appreciate Dr. Bansal's input. 2.Hemoptysis, may be secondary to pneumonia versus possible endobronchial metastases from renal mass . As the patient does not want any invasive measurements and further diagnostic workup, we will hold off on bronchoscopy. The patient can follow up with Dr. Bansal as an outpatient. No further hemo ptysis. 3.Hypokalemia. Replace and monitor. 4.Cerumen impaction. Pharmacy is out of stock of ear drops. We request from outside pharmacy. 5.Essential hypertension, stable. 6.Generalized osteoarthritis. We will continue pain medications. Stable. 7.Mixed hyperlipidemia. Continue statin. 8.History of cerebrovascular accident without any residual deficits. Continues aspirin and statin. 9.History of prostate cancer status post surgery. 10.Right-sided 9 cm solid kidney mass, likely renal cell carcinoma. As family and the patient do no t wish to pursue further diagnostic workup, we will hold off on biopsy. They understand that this ca ncer be progressed and given his hemoptysis may already have led to endobronchial metastases. 11.Gastrointestinal and deep venous thrombosis prophylaxis addressed. PPI and SCDs. No chemical an ticoagulation due to hemoptysis. Plan: PT eval set up, home health versus SNF. The patient does live alone. Family concern regardin g his discharge home alone. If the patient is doing well and ambulating, we will set up home health. Otherwise, may need to be referred to a [facility] facility. /KELLEY Voice ID: [id number] Report ID: [id number]
[2018-07-24] MEDS: METOPROLOL XL 50 MG TAB PO SCH (20:59)
[2018-07-24] MEDS: AMLODIPINE 5 MG TAB PO SCH (20:59)
[2018-07-24] MEDS: ATORVASTATIN 10 MG TAB PO SCH (20:59)
[2018-07-25] MEDS: ALBUTEROL 2.5 MG/3 ML NEB SOL NEB SCH ×2 (01:24→08:05)
[2018-07-25 05:38] LABS: Potassium 4.1 mmol/L (3.5-5.1)
[2018-07-25] MEDS: levoFLOXacin 500 MG TAB PO SCH (10:26)
[2018-07-25] MEDS: LOSARTAN/HCTZ 50-12.5 PO SCH (10:26)
[2018-07-25] MEDS: ASPIRIN EC 81 MG TAB PO SCH (10:26)
--- NOTE | 2018-07-26 06:25 | DS ---
Date of Discharge: 07/25/2018 Consultants: Dr. Bansal with Pulmonology. Admitting Diagnoses: 1.Right upper lobe pneumonia. 2.Essential hypertension. 3.History of cerebrovascular accident. 4.Generalized osteoarthritis. 5.History of prostate cancer. Discharge Diagnoses: 1.Right-sided pneumonia, upper lobe, improved. 2.Hemoptysis, likely secondary to possible endobronchial metastases from renal mass. The patient do es not wish for any further workup. 3.Hypokalemia, replaced. 4.Cerumen impaction. We will continue with Debrox ear drops. 5.Essential hypertension, stable. 6.Right-sided renal mass, 9 cm, likely renal cell carcinoma. The patient does not wish to pursue an y further diagnosis. 7.Mixed hyperlipidemia, statin. 8.Generalized osteoarthritis. 9.History of cerebrovascular accident without any residual deficits. 10.History of prostate cancer, status post surgery. Hospital Course: The patient is an 88-year-old male who comes in with productive cough, shortness of breath, and with sputum that has become bloody. The patient's chest x-ray showed right upper lobe i nfiltrate. CT chest, abdomen, and pelvis showed opacification of the right side consistent with pneu monia and incidental large right renal mass. The patient was started on IV antibiotics and supplemen aman oxygen. Cultures were obtained which remained negative. Influenza screen was also negative. Hi s sputum culture showed normal eduard. His pneumonia improved; however, due to the hemoptysis, he was seen by Dr. Bansal with Pulmonology. His likely source of hemoptysis was maybe endobronchial meta stasis from the renal mass or due to excessive coughing and due to the pneumonia. However, as renal ultrasound confirmed the most likely etiology of this solid renal mass of 9 cm to be renal cell carci noma, it is thought to be metastatic. The patient and his family were informed of the diagnoses. Ho wever, they did not wish to pursue any further diagnostic workup. They understand that this is most likely cancerous and will spread and may cause further morbidity and may eventually lead to his . They voiced understanding they do not wish to go through invasive measurements such as biopsies, c hemotherapy, and radiation therapy. The patient was then recommended to have follow up ultrasound in 3 months. He was also encouraged to follow up with Dr. Bansal in 1-2 weeks. The patient's hemopt ysis resolved. His WBC count was normal. His cultures remained negative. Electrolytes were correct ed. The patient did require some assistance with ambulation and he was set up with home health. The patient was then discharged in a stable condition. Activity: Fall precautions. Continue PT. Followup: Follow up with primary care physician in 2-3 days. Follow up with carving machine operator, Dr. Olu magdaleno, in 1 week. Return to ER for worsening condition. Repeat renal ultrasound in 3-6 months. Diet: Heart healthy. Medications: As per medication reconciliation list. Total time spent discharging the patient was 39 minutes. Physical Examination: General: Awake, alert, oriented x3. No acute distress. Elderly male. CV: S1, S2. No murmurs. Respiratory: Moving air well bilaterally. Abdomen: Soft, nontender, nondistended. Positive bowel sounds. Extremities: No clubbing, cyanosis, or edema. Neurologic: Nonfocal. SA/MODL Voice ID: [id number] Report ID: [id number]
== END 2018-07-25 14:38 | disposition home health service (06) | DRG 194 ==
LOC: ER 19:09 → ERHOLD 22:36 → 2ND 23:21
PROVIDERS: ADMIT Internal Medicine; ATTEND Family Medicine
PROC: 05HP33Z Insertion of Infusion Device into Right External Jugular Vein, Percutaneous Approach (ICD-10-PCS; principal; 2018-07-21)
DX: J18.1 Lobar pneumonia, unspecified organism (principal); R04.2 Hemoptysis; C64.1 Malignant neoplasm of right kidney, except renal pelvis; C78.00 Secondary malignant neoplasm of unspecified lung; E87.6 Hypokalemia; H61.20 Impacted cerumen, unspecified ear; E78.2 Mixed hyperlipidemia; M15.9 Polyosteoarthritis, unspecified; Z86.73 Personal history of transient ischemic attack (TIA), and cerebral infarction without residual deficits; Z85.46 Personal history of malignant neoplasm of prostate; I10 Essential (primary) hypertension; K76.9 Liver disease, unspecified
CPT/HCPCS: 36415; 71045; 71250; 74176; 76770; 80048; 80076; 81003; 82962; 83605; 83690; 83735; 83880; 84132; 84145; 84484; 85025; 85610; 87040; 87070; 87205; 87804; 93005; 94640; 96361; 96365; 96366; 96367; 96368; 96375; 97163; 99285; J0456; J0696; J7030

== ENCOUNTER 2019-08-18 07:28 | Emergency (ER) | payer OTHER ==
--- OUTSIDE RECORDS SUMMARY | 2019-08-18 07:30 | XMS REPORT ---
:1930 [facility] Address [address] [place] [address] Care Team Providers Name Role Phone ROGE HARRIS Primary Care Provider Unavailable ROGE HARRIS Unavailable Unavailable Problems This patient has no known problems. Allergies, Adverse Reactions, Alerts This patient has no known allergies or adverse reactions. Medications This patient has no known medications. Results Test Description Test Time Test Comments Text Results Atomic Results Result Comments Uric Acid 2017-04-12 13:24:00 Test Item Value Reference Range Comments Uric Acid (test code=UA) 6.6 mg/dL 3.4-7.0 Lipid [id number] 00:28:00 Test Item Value Reference Range Comments Cholesterol (test 162 mg/dL 0-200 code=CHOL) Triglycerides (test 220 mg/dL 9-200 Unable to calculate, Trig >400 code=TRIG) HDL (test code=HDL) 32 mg/dL 40-60 Chol/HDL (test 5.1 Ratio 0.0-5.0 code=CHOLPHDL) LDL, Calculated (test 86 mg/dL 0-130 (NOTE)RISK OF HEART code=LDLC) DISEASEPublished by Sammarinese Heart AssociationAnalyte Optimal Boderline Increased RiskCHOL <200 200-239 >240TRIG <150 150-199 >200HDL Male: >60 <40HDL Female: >60 <50LDL <100 130-159 >160LDL NEAR OPTIMAL IS 100-129 VLDL (test code=VLDL) 44 mg/dL 5-40 LDL/HDL (test code=LDLPHDL) 3
--- OUTSIDE RECORDS SUMMARY | 2019-08-18 07:30 | XMS REPORT | Encounter Summary ---
:1930 Author Care Team Providers Name Role Phone Ed Saadia Primary Care Provider [phone] [facility] OTHER [phone] Reason for Visit None recorded. Instructions None recorded.Discussion Note: None recorded.Patient educational handouts: No information available. Plan of Care Reminders Provider Appointments None recorded. Lab None recorded. Referral None recorded. Procedures None recorded. Surgeries None recorded. Imaging None recorded. Medications Name Start Date amlodipine 5 mg tablet Take 1 tablet every day by oral route at noon for 30 days. Aspirin Low Dose 81 mg tablet,delayed release Take 1 tablet every day by oral route. losartan 50 mg-hydrochlorothiazide 12.5 mg tablet Take 1 tablet every day by oral route in the morning for 30 days. metoprolol succinate ER 50 mg tablet,extended release 24 hr Take 1 tablet every day by oral route at dinner. pravastatin 80 mg tablet Medications Administered None recorded. Vitals None recorded. Lab Results None recorded. Allergies Code Code System Name Reaction Severity Status Onset 48695 RxNorm Lisinopril Cough Active Problems Name Status Onset Date Source Type 2 Diabetes Mellitus Active Encounter Hyperlipidemia Active Median Neuropathy Active Encounter Peripheral Neuralgia Active Encounter Otitis Externa Active Encounter Impacted Cerumen Active Encounter Excessive Cerumen in Ear Canal Active Encounter Perforation of Tympanic Membrane Active Encounter Hearing Loss Active Encounter Decreased Hearing Active Encounter Partial Deafness Active Encounter Essential Hypertension Active Encounter Hypertensive Heart Disease Active Myocardial Infarction Active Encounter Coronary Arteriosclerosis Active Encounter Irregular Heart Beat Active Encounter Cerebrovascular Accident Active Encounter Low Blood Pressure Active Encounter Acute Bronchitis Active Encounter Allergic Rhinitis Active Encounter Bronchitis Active Encounter Acute Gastritis Active Encounter Chronic Gastritis Active Encounter Acute Constipation Active Encounter Chronic Constipation Active Encounter 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 Transient Arthropathy of Shoulder Active Encounter Rotator Cuff Tear Arthropathy Active Encounter Soft Tissue Swelling of Knee Joint Active Encounter Shoulder Joint Pain Active Encounter Anterior Knee Pain Active Encounter Knee Joint Painful on Movement Active Encounter Displacement of Lumbar Intervertebral Disc Active without Myelopathy Spinal Stenosis Active Chronic Back Pain Active Encounter Spasm of Back Muscles Active Encounter Peripheral Neuropathic Pain Active Encounter Near Syncope Active Encounter Fatigue Active Encounter Numbness of Hand Active Encounter Numbness of Finger Active Encounter Paresthesia of Lower Extremity Active Encounter Impaired Glucose Tolerance Active Encounter Raised TSH Level Active Encounter Allergic Reaction to Drug Active Encounter 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 Social History Tobacco Smoking Status Never Smoker Past Encounters 05/31/2019 [facility]UR[facility] Pringle: [address], [address], [place] [address], Ph. 05/23/2019 [facility] Pringle: [address], [address], [place] [address], Ph. 05/18/2019 Decreased Hearing; Impacted Cerumen of Bilateral Ears [facility] Pringle: [address], [address], [place] [address], Ph. History of Present Illness Earache Reported By: Patient HPI: Location: bilateral. Severity: worsening, continuous, moderate; Ears feel stopped up. Duration: symptoms lasting over 2 weeks. Timing: worse, gradual. Context: no sick contacts, no recent swimming/water in ear, no exposure to second hand smoke, no head trauma, not grinding teeth, no recent air travel. Modifying Factors: does not hurt to lie on, or pull on ear, does not hurt to chew. Associated Symptoms: no discharge from the ears, hearing loss, popping noise in the ears Note: Mr. Cole Is brought to the clinic by his son stating that his dad is having trouble hearing . Review of Systems General Adult ROS Reported By: Patient Constitutional: Constitutional: no fever, no night sweats, no significant weight gain, no significant weight loss, no exercise intolerance ENMT: Ears: difficulty hearing. Nose: no frequent nosebleeds, no nose/sinus problems. Mouth/Throat: no sore throat, no snoring, no dry mouth, no mouth ulcers, no oral abnormalities, no teeth problems, No Post Nasal Dripping, Constantly clearing the throat, hiccups, itching throat, (normal) weak voice: constant Cardiovascular: Cardiovascular: no chest pain, no arm pain on exertion, no shortness of breath when walking, no shortness of breath when lying down, no palpitations, no known heart murmur Respiratory: Respiratory: no cough, no wheezing, no shortness of breath, no coughing up blood Gastrointestinal: Gastrointestinal: no abdominal pain, no vomiting, normal appetite, no diarrhea, not vomiting blood Genitourinary: Genitourinary: no incontinence, no difficulty urinating, no hematuria, no increased frequency Musculoskeletal: Musculoskeletal: no muscle aches, no muscle weakness, no arthralgias/joint pain, no back pain, no swelling in the extremities Allergic/Immunologic: Allergy/Immunologic: no runny nose, no sinus pressure, no itching, no hives, no frequent sneezing Physical Exam General Adult Exam - Male Reported By: Patient Constitutional: General Appearance: healthy-appearing, well-nourished, well-developed. Level of Distress: mild distress ENMT: Ears: ; Unable to se the TM due to ear wax occlusion Lungs: Respiratory effort: no dyspnea. Percussion: no dullness, flatness, or hyperresonance. Auscultation: breath sounds normal, good air movement, CTA except as noted, no wheezing, no rales/crackles, no rhonchi Cardiovascular: Apical Impulse: not displaced. Heart Auscultation: RRR, normal S1, normal S2, no murmurs, no rubs, no gallops. Neck vessels: no carotid bruits. Pulses including femoral / pedal: normal throughout
--- OUTSIDE RECORDS SUMMARY | 2019-08-18 07:30 | XMS REPORT | Encounter Summary ---
:1930 Author Care Team Providers Name Role Phone Ed Zee Primary Care Provider [phone] [facility] OTHER [phone] Reason for Visit Patient presents to the clinic following up HTN and HLP Instructions 1. Pain in bilateral legs naproxen 500 mg tablet 2. Hand joint pain 3. Peripheral neuropathic pain Discussion Note I explained to the patient and his son that Mr. Cole's pain is consistent with nerve damage from his stroke which is very difficult to manage and the medication that he was taking was the best in controlling his pain but needs to be increased however his insurance does not cover it and it is too costly for him to purchase . He son does not want him to have tylenol w/ cod, and the patient does not want to take Tramadol and does not want to go to pain management . We did discuss some of the tricylates but he wants to try an NSAID first . Patient educational handouts: No information available. Plan of Care Reminders Provider Appointments FOLLOW-UP 11/24/2018 [facility] 30 10:30AM Lab None recorded. Referral None recorded. Procedures [...] every day by oral route at dinner. naproxen 500 mg tablet Take 1 tablet twice a day by oral route as directed for 30 days. pravastatin 80 mg tablet Medications Administered None recorded. Vitals Height Weight BMI Blood Pressure 71 in 169 lbs 9.6 oz 23.7 kg/m2 114/56 mm[Hg] Lab Results None recorded. Allergies Code Code System Name Reaction Severity Status Onset 94372 RxNorm Lisinopril Cough Active Problems Name Status [...] available Vaccine List None recorded. Social History Smoking Status Never Smoker Past Encounters 10/14/2018 Pain in Bilateral Legs; Hand Joint Pain; Peripheral Neuropathic Pain [facility] Pringle: [address], [address], [place] [address], Ph. History of Present Illness Musculoskeletal Pain Reported By: Patient HPI: Location: pain radiating to the legs bilateral, left arm, left wrist, left hand. Quality: sharp. Severity: worsening, interference with sleep, pain level without meds 10/10. Duration: present for >12 months. Timing: constant. Alleviating factors: rest. Aggravating factors: movement/positioning, bending over, twisting. Associated Symptoms: weak limbs, tingling, numbness of the legs/feet Care Management - Hypertension Reported By: Patient HPI: Prognosis: expected outcome: improve. Self Care: last visit 03/04/18, recent hospitalization/ER visit? no, blood pressure goal: <130/90, LDL levels: 100, LDL goal: <70, lowest HDL level: 36, using an ARB, using a beta shelton; CCB. Severity: symptoms are improving, does not interfere with daily activities. Associated Symptoms: lightheadedness Care Management - Hyperlipidemia Reported By: Patient HPI: Prognosis: expected outcome: improve, prognosis: good. Self Care: recent hospitalization/ER visit? no, last visit 01/20/18, HDL levels: 36, triglyceride levels: 125, LDL levels: 100, LDL goal: <70, blood pressure goal: <130/90, using a beta shelton; ARB & CCB. Control: usually well controlled, improving. Complications: coronary artery disease, cardiovascular disease, stroke Notes: PF: [facility] Note: he also c/o pain left hand and lower extremities Review of Systems General Adult ROS Reported By: Patient Constitutional: Constitutional: no fever, no night sweats, no significant weight gain, weight loss (12.0 lbs), exercise intolerance Cardiovascular: Cardiovascular: no chest pain, no arm [...] back pain, no swelling in the extremities Integumentary: Skin: no abnormal mole, no jaundice, no rashes Neurologic: Neurologic: no loss of consciousness, no seizures, no dizziness, no headaches Psychiatric: Psych: depression Physical Exam General Adult Exam - Male Reported By: Patient Placement Secretary: Placement Secretary: present; son her with him Constitutional: General Appearance: well-nourished, well-developed. Level of Distress: moderate distress. Ambulation: limited ambulation, ambulation with walker Psychiatric: Insight: poor insight. Orientation: to time, to place, to person. Memory: recent memory normal, remote memory normal Head: Head: normocephalic, atraumatic Neck: Neck: supple, trachea midline, no masses, FROM. Lymph Nodes: no cervical LAD. Thyroid: no enlargement, non-tender, no nodules Lungs: Respiratory effort: no dyspnea. Percussion: no dullness, flatness, or hyperresonance. Auscultation: breath sounds normal, good air movement, CTA except as noted, no wheezing, no rales/crackles, no rhonchi Cardiovascular: Apical Impulse: not displaced. Heart Auscultation: RRR, normal S1, normal S2, no murmurs, no rubs, no gallops. Neck vessels: no carotid bruits. Pulses including femoral / pedal: normal throughout Musculoskeletal:: Motor Strength and Tone: abnormal, poor tone, hypotonicity. Joints, Bones, and Muscles: limited ROM, tenderness. Extremities: no cyanosis, no edema, no varicosities, no palpable cord Neurologic: Gait and Station: irregular gait, wide-based, waddling. Cranial Nerves: abnormal. Sensation: grossly intact
--- OUTSIDE RECORDS SUMMARY | 2019-08-18 07:30 | XMS REPORT | Encounter Summary ---
:1930 Author Care Team Providers Name Role Phone Ed Parranakiakar Primary Care Provider [phone] [facility] OTHER [phone] Reason for Visit Decreased hearing Instructions 1. Decreased hearing 2. Impacted cerumen of bilateral ears cerumen removal using irrigation (PROC) Discussion Note: None recorded.Patient educational handouts: No information available. Plan of Care Reminders Provider Appointments None recorded. Lab None recorded. Referral None recorded. Procedures Cerumen Removal Using Irrigation 05/18/2019 (PROC) Surgeries None recorded. Imaging None recorded. Medications [...] Height Weight BMI Blood Pressure 71 in 152 lbs 14.4 oz 21.3 kg/m2 113/57 mm[Hg] Lab Results None recorded. Allergies Code Code System Name Reaction Severity Status Onset 78859 RxNorm Lisinopril Cough Active Problems Name Status [...] Past Encounters 05/31/2019 [facility] Pringle: [address], [address], [place] [address], Ph. 05/23/2019 [facility] Pringle: [address], [address], [place] [address], Ph. 05/18/2019 Decreased Hearing; Impacted Cerumen of Bilateral Ears [facility] Pringle: [address], [address], [place] [address], Ph. History of Present Illness Earache Reported By: Patient HPI: Location: bilateral. Duration: symptoms lasting over 2 weeks. Timing: worse. Context: no sick contacts, no recent swimming/water in ear, no exposure to second hand smoke, no head trauma, not grinding teeth, no recent air travel. Modifying Factors: does not hurt to lie on, or pull on ear, does not hurt to chew. Associated Symptoms: no discharge from the ears, no nose/sinus problems, no popping noise in the ears, no ringing in the ears, hearing loss Note: Mr. Cole Presents to the Clinic brought in by his son who states his dad is having difficulty hearing .Review of Systems: ROS as noted in the HPI Review of Systems None recorded. Physical Exam General Adult Exam - Male Reported By: Patient Senior Windows Administrator: Senior Windows Administrator: present; his son Psychiatric: Insight: good judgement. Mental Status: active and alert, normal mood, normal affect. Orientation: to time, to place, to person. Memory: recent memory normal, remote memory normal ENMT: Ears: no lesions on external ear, EAC ceruminous. Hearing: hearing decreased Lungs: Respiratory effort: no dyspnea. Percussion: no [...]
--- OUTSIDE RECORDS SUMMARY | 2019-08-18 07:31 | XMS REPORT | Encounter Summary ---
:1930 Author Care Team Providers Name Role Phone Ed Saadia Primary Care Provider [phone] [facility] OTHER [phone] Reason for Visit Follow Up Visit Instructions 1. Impacted cerumen of bilateral ears Discussion Note We were unable to disimpact wax from ears , we advise to use OTC ear softner for the next few days and return to the clinic 4-5 days for Ear lavage Patient educational handouts: No information available. Plan [...] Height Weight BMI Blood Pressure 71 in 150 lbs 3 oz 20.9 kg/m2 125/62 mm[Hg] Lab Results None recorded. Allergies Code Code System Name Reaction Severity Status Onset 66065 RxNorm Lisinopril Cough Active Problems Name Status [...] Smoking Status Never Smoker Past Encounters 05/31/2019 Impacted Cerumen of Bilateral Ears [facility] Pringle: [address] [facility] [address] [facility] [address], [place] [address], Ph. 05/23/2019 [facility] Pringle: [address] [facility] [address], [place] [address], Ph. 05/18/2019 Decreased Hearing; Impacted Cerumen of Bilateral Ears [facility] Pringle: [address] [facility] [address], [place] [address], Ph. History of Present Illness Earache Reported By: Patient HPI: Location: bilateral. Severity: same, moderate; Can't hear well. Duration: frequent, symptoms lasting over 2 weeks. Timing: gradual. Context: no sick contacts, no recent swimming/water in ear, no exposure to second hand smoke, no head trauma, not grinding teeth, no recent air travel. Modifying Factors: does not hurt to lie on, or pull on ear, does not hurt to chew. Associated Symptoms: no discharge from the ears, no hearing loss, no nose/sinus problems, no popping noise in the ears, no ringing in the ears Note: patient here to have ears cleanReview of Systems: ROS as noted in the HPI Review of Systems None recorded. Physical Exam General Adult Exam - Male Reported By: Patient Constitutional: General Appearance: healthy-appearing, well-nourished, well-developed. Level of Distress: NAD. Ambulation: limited ambulation, ambulation with cane ENMT: Ears: EAC ceruminous; Unable to visualize Right TM. Hearing: hearing decreased. Nose: no lesions on external nose, nares patent, no septal deviation, nasal passages clear, no sinus tenderness, no nasal discharge Lungs: Respiratory effort: no dyspnea. Percussion: no [...]
--- NOTE | 2019-08-18 07:54 | EKG ---
Test Date: 2019-08-18 Test Time: 07:45:23 Dry Room Operator: WILBERT MEASUREMENT RESULTS: Intervals: Rate: 89 SC: 148 QRSD: 70 QT: 380 QTc: 462 Home: P: 70 SC: 148 QRS: 16 T: 42 INTERPRETIVE STATEMENTS: Normal sinus rhythm Low voltage QRS Septal infarct, age undetermined Abnormal ECG Compared to ECG 07/21/2018 19:50:51 Low QRS voltage now present Myocardial infarct finding still present Electronically Signed On 08-18-19 07:53:50 ALIGNER by Rom Evans
[2019-08-18 08:40] LABS: Absolute Lymphocytes (CBC) 1.2 K/uL (0.7-4.9); Basophils % 0.4 % (0-1.3); Hematocrit 35.4 % (39.6-49.0); Lymphocytes % 14.3 % (15.3-44.8); MPV 9.7 fL (7.6-11.3); RBC Red Blood Cell Count 4.26 M/uL (4.33-5.43)
[2019-08-18 08:43] LABS: Protime INR 1.14
--- NOTE | 2019-08-18 08:52 | RAD REPORT ---
EXAM DESCRIPTION: RAD - Chest Single View - 08/18/2019 7:55 am CLINICAL HISTORY: Confusion Chest pain. COMPARISON: Chest Single View dated 07/21/2018; Chest Abd Pelvis Wo Con dated 07/21/2018 FINDINGS: Portable technique limits examination quality. Phelps opacity is seen right mid lung which may represent an infiltrate or mass, appearing more promi nent than on the comparative study. The heart is normal in size. No displaced fractures.
[2019-08-18 09:06] LABS: Albumin 2.6 g/dL (3.4-5.0); Bilirubin Direct 0.2 mg/dL (0-0.2); Bilirubin Total 0.6 mg/dL (0.2-1.0); Magnesium 2.3 mg/dL (1.8-2.4); Potassium 4.1 mmol/L (3.5-5.1); Troponin (Emerg Dept Use Only) 0.1 ng/mL (0.0-0.045)
--- NOTE | 2019-08-18 09:22 | RAD REPORT ---
EXAM DESCRIPTION: US - Extremity Nonvascular Complete - 08/18/2019 8:45 am CLINICAL HISTORY: Swollen area on back Pain and swelling COMPARISON: No comparisons TECHNIQUE: Real-time sonographic evaluation of the area of interest was performed. FINDINGS: Irregular subcutaneous heterogenous mass is present at the site of palpable abnormality ri ght midline of the back measuring 4.3 x 1.8 x 1.8 cm.
[2019-08-18] MEDS ORDERED: KETAMINE HCL 500 MG/5 ML VIAL ONE (10:41)
[2019-08-18 13:49] LABS: Urine Blood NEGATIVE (NEG); Urine Glucose NEGATIVE (NEG); Urine Protein 1+ (NEG); Urine Specific Gravity 1.025 (1.005-1.030); Urine pH 5.5 (5.0-7.0)
--- NOTE | 2019-08-18 14:05 | ER ---
Nurse's Notes [facility] Name: Rupert Cole Jr Age: 89 yrs Sex: Male : 1930 Arrival Date: 08/18/2019 Time: 07:31 Bed 7 Private MD: out of town, doctor Diagnosis: Altered mental status, unspecified;Confusion, ;Hallucinations, unspecified Presentation: 08/18 07:35 Presenting complaint: daughter in law and son report that patient has been having ss hallucinations over the past 3 days which seem to be getting worse. Family is concerned for possible infection that may be the cause. Also, a large lump is reported to have been noticed by family over the past few days to patients' back. History of kidney cancer, patient and family opted out of any further treatment of CA. Transition of care: patient was not received from another setting of care. Onset of symptoms was August 15, 2019. Risk Assessment: Do you want to hurt yourself or someone else? Patient reports no desire to harm self or others. Initial Sepsis Screen: Does the patient meet any 2 criteria? HR > 90 bpm. Does the patient have a suspected source of infection? No. Patient's initial sepsis screen is negative. Care prior to arrival: None. 07:35 Method Of Arrival: Wheelchair ss 07:35 Acuity: NHUNG 3 ss Historical: - Allergies: 07:51 No Known Allergies; ss - Home Meds: 07:51 pravastatin 80 mg Oral tab 1 tab once daily [Active]; aspirin 81 mg Oral chew 1 tab ss once daily [Active]; metoprolol tartrate 50 mg Oral tab once daily [Active]; amlodipine 5 mg tab 1 tab once daily [Active]; losartan 50 mg oral tab 1 tab once daily [Active]; hydrochlorothiazide 12.5 mg Oral cap 1 cap once daily [Active]; - PMHx: 07:51 Hypertension; High Cholesterol; Kidney CA; ss - Immunization history:: Adult Immunizations up to date. - Social history:: Smoking status: Patient/guardian denies using tobacco. - Ebola Screening: : Patient denies exposure to infectious person Patient denies travel to an Ebola-affected area in the 21 days before illness onset. Screenin:45 Abuse screen: Denies threats or abuse. Denies injuries from another. Nutritional jl7 screening: No deficits noted. Tuberculosis screening: No symptoms or risk factors identified. Fall Risk No fall in past 12 months (0 pts). No secondary diagnosis (0 pts). IV access (20 points). Ambulatory Aid- Crutches/Cane/Walker (15 pts). Gait- Weak (10 pts.). Mental Status- Overestimates/Forgets Limitations (15 pts.). Total Doyle Fall Scale indicates High Risk Score (45 or more points). Fall prevention measures have been instituted. Side Rails Up X 2 Placed Close to Nursing Station Frequent Obs/Assessments Occuring Family Present and informed to notify staff if the need to leave the bedside As available patient and family educated on Fall Prevention Program and Strategies. Assessment: 07:45 General: Appears in no apparent distress. uncomfortable, Behavior is calm, cooperative, jl7 appropriate for age. Pain: Denies pain. Neuro: Level of Consciousness is awake, alert, obeys commands, Oriented to person, place. Cardiovascular: Patient's skin is warm and dry. Respiratory: Airway is patent Respiratory effort is even, unlabored, Respiratory pattern is regular, symmetrical. GI: No signs and/or symptoms were reported involving the gastrointestinal system. : No signs and/or symptoms were reported regarding the genitourinary system. EENT: No signs and/or symptoms were reported regarding the EENT system. Oral mucosa is dry. Derm: Skin is pink, warm \T\ dry. 08:45 Reassessment: Patient appears in no apparent distress at this time. No changes from jl7 previously documented assessment. Patient and/or family updated on plan of care and expected duration. Pain level reassessed. Son and [id number] remains at bedside. 09:41 Reassessment: Pt laying in bed with eyes closed, respirations even and unlabored, pt jl7 appears to be mumbling inaudible words, family not at bedside, will continue to monitor. 10:40 Reassessment: Patient appears in no apparent distress at this time. No changes from jl7 previously documented assessment. Patient and/or family updated on plan of care and expected duration. Pain level reassessed. Family at bedside. 12:00 Reassessment: Patient appears in no apparent distress at this time. No changes from jl7 previously documented assessment. Patient and/or family updated on plan of care and expected duration. Pain level reassessed. 13:30 Reassessment: Dr. Singletary at bedside discussing results and POC. jl7 Vital Signs: 07:43 BP 116 / 66; Pulse 90; Resp 18; Pulse Ox 100% on R/A; Weight 79 kg; Height 5 ft. 9 in. sg (175.26 cm); 07:59 Temp 98.0(TE); ss 08:38 BP 102 / 58; Pulse 96; Resp 20 S; Pulse Ox 100% on R/A; sg 09:28 BP 113 / 55; Pulse 88; Resp 19 S; Pulse Ox 100% on R/A; jl7 10:30 BP 115 / 65; Pulse 85; Resp 16 S; Pulse Ox 100% on R/A; jl7 11:30 BP 119 / 63; Pulse 84; Resp 16 S; Pulse Ox 100% on R/A; jl7 12:30 BP 113 / 60; Pulse 89; Resp 16 S; Pulse Ox 100% on R/A; jl7 13:56 BP 124 / 64; Pulse 93; Resp 19 S; Pulse Ox 100% on R/A; jl7 07:43 Body Mass Index 25.72 (79.00 kg, 175.26 cm) ED Course: 07:31 Patient arrived in ED. as 07:31 out of town, doctor is Private Physician. as 07:36 Andres Singletary MD is Attending Physician. kdr 07:45 Patient has correct armband on for positive identification. Placed in gown. Bed in low jl7 position. Call light in reach. Side rails up X2. Adult w/ patient. cardiac monitor technician on. Pulse ox on. NIBP on. Warm blanket given. 07:49 Triage completed. ss 07:51 Arm band placed on right wrist. ss 07:54 XRAY Chest (1 view) In Process Unspecified. EDMS 07:59 Etienne Mariscal, DANIELA is Primary Nurse. jl7 08:01 EKG done, by data technical lead. reviewed by Andres Singletary MD. at1 08:10 Missed attempt(s): 24 gauge in right hand. Bleeding controlled, band aid applied, jl7 catheter tip intact. 08:20 Initial lab(s) drawn, by va, sent to lab. Inserted saline lock: 22 gauge in left dh3 antecubital area, using aseptic technique. Blood collected. 08:36 technical services analyst at bedside. sg 08:45 Extremity Nonvascular Complete In Process Unspecified. EDMS 14:43 No provider procedures requiring assistance completed. IV discontinued, intact, jl7 bleeding controlled, No redness/swelling at site. Pressure dressing applied. Administered Medications: 12:05 Drug: Ketamine 1 mg/kg Route: IVP; Site: left antecubital; jl7 12:30 Follow up: Response: No adverse reaction jl7 Outcome: 14:03 Discharge ordered by . kdr 14:43 Discharged to home ambulatory. jl7 14:43 Condition: stable 14:43 Discharge instructions given to patient, family, Instructed on discharge instructions, follow up and referral plans. Demonstrated understanding of instructions, follow-up care. 14:44 Patient left the ED. jl7 Signatures: Dispatcher [employer] EDTera Byrd, Andres Hodgson RN, MD MD kdr Martinez, Amelia as Smirch, Shelby, RN RN Edie Rose, oil pump station operator chief EKG Tat1 Etienne Mariscal RN RN jl7 Shea Gee 3 Corrections: (The following items were deleted from the chart) 07:45 07:43 BP 116 / 66; Pulse 90bpm; Resp 18bpm; Pulse Ox 100% RA; 74 kg; Height 5 ft. 7 sg in.; BMI: 25.5; sg
--- NOTE | 2019-08-18 14:05 | EDPHYS ---
Physician Documentation [facility] Name: Rupert Cole Jr Age: 89 yrs Sex: Male : 1930 Arrival Date: 08/18/2019 Time: 07:31 Bed 7 Private MD: out of town, doctor ED Physician Andres Singletary HPI: 08/18 07:52 This 89 yrs old Black Male presents to ER via Wheelchair with complaints of kdr Hallucinations, Back Problem. 07:52 The patient presents with confusion, disorientation. Onset: The symptoms/episode kdr began/occurred gradually, 1 week(s) ago. Possible causes: UTI or swollen area on back. Associated signs and symptoms: Pertinent positives: back pain, Hallucinations and swollen are on right lateral spine. Patient's baseline: Neuro: alert and fully oriented, Motor: no deficits. The patient has experienced similar episodes in the past, a few times. The patient has not recently seen a physician. Historical: - Allergies: 07:51 No Known Allergies; ss - Home Meds: 07:51 pravastatin 80 mg Oral tab 1 tab once daily [Active]; aspirin 81 mg Oral chew 1 tab ss once daily [Active]; metoprolol tartrate 50 mg Oral tab once daily [Active]; amlodipine 5 mg tab 1 tab once daily [Active]; losartan 50 mg oral tab 1 tab once daily [Active]; hydrochlorothiazide 12.5 mg Oral cap 1 cap once daily [Active]; - PMHx: 07:51 Hypertension; High Cholesterol; Kidney CA; ss - Immunization history:: Adult Immunizations up to date. - Social history:: Smoking status: Patient/guardian denies using tobacco. - Ebola Screening: : Patient denies exposure to infectious person Patient denies travel to an Ebola-affected area in the 21 days before illness onset. ROS: 07:52 Constitutional: Negative for fever, chills, and weight loss, Eyes: Negative for injury, kdr pain, redness, and discharge, Neck: Negative for injury, pain, and swelling, Cardiovascular: Negative for chest pain, palpitations, and edema, Respiratory: Negative for shortness of breath, cough, wheezing, and pleuritic chest pain, Abdomen/GI: Negative for abdominal pain, nausea, vomiting, diarrhea, and constipation, Back: Negative for injury and pain, : Negative for injury, bleeding, discharge, and swelling, MS/Extremity: Negative for injury and deformity, Psych: Negative for depression, anxiety, suicide ideation, homicidal ideation, and hallucinations, Allergy/Immunology: Negative for hives, rash, and allergies, Endocrine: Negative for neck swelling, polydipsia, polyuria, polyphagia, and marked weight changes, Hematologic/Lymphatic: Negative for swollen nodes, abnormal bleeding, and unusual bruising. 07:52 Skin: Positive for cellulitis, swelling, of the right low back, Negative for abrasions, burn, discoloration, ecchymosis, lesions, puncture. 07:52 Neuro: Positive for altered mental status, weakness, Negative for loss of consciousness, syncope, near syncope, tinnitus, tremor, visual changes. Exam: 07:52 Constitutional: This is a well developed, well nourished patient who is awake, alert, kdr and in no acute distress. Head/Face: Normocephalic, atraumatic. Eyes: Pupils equal round and reactive to light, extra-ocular motions intact. Lids and lashes normal. Conjunctiva and sclera are non-icteric and not injected. Cornea within normal limits. Periorbital areas with no swelling, redness, or edema. Neck: Trachea midline, no thyromegaly or masses palpated, and no cervical lymphadenopathy. Supple, full range of motion without nuchal rigidity, or vertebral point tenderness. No Meningismus. Chest/axilla: Normal chest wall appearance and motion. Nontender with no deformity. No lesions are appreciated. Cardiovascular: Regular rate and rhythm with a normal S1 and S2. No gallops, murmurs, or rubs. Normal PMI, no JVD. No pulse deficits. Respiratory: Lungs have equal breath sounds bilaterally, clear to auscultation and percussion. No rales, rhonchi or wheezes noted. No increased work of breathing, no retractions or nasal flaring. Abdomen/GI: Soft, non-tender, with normal bowel sounds. No distension or tympany. No guarding or rebound. No evidence of tenderness throughout. Back: No spinal tenderness. No costovertebral tenderness. Full range of motion. Skin: Warm, dry with normal turgor. Normal color with no rashes, no lesions, and no evidence of cellulitis. There is a paraspinal swollen region on the right side of the low thoracic upper lumbar area. It is fluctuant, slightly warm and approximately 3 cm x 12 cm MS/ Extremity: Pulses equal, no cyanosis. Neurovascular intact. Full, normal range of motion. Psych: Awake, alert, with orientation to person, place and time. Behavior, mood, and affect are within normal limits. Vital Signs: 07:43 BP 116 / 66; Pulse 90; Resp 18; Pulse Ox 100% on R/A; Weight 79 kg; Height 5 ft. 9 in. sg (175.26 cm); 07:59 Temp 98.0(TE); ss 08:38 BP 102 / 58; Pulse 96; Resp 20 S; Pulse Ox 100% on R/A; sg 09:28 BP 113 / 55; Pulse 88; Resp 19 S; Pulse Ox 100% on R/A; jl7 10:30 BP 115 / 65; Pulse 85; Resp 16 S; Pulse Ox 100% on R/A; jl7 11:30 BP 119 / 63; Pulse 84; Resp 16 S; Pulse Ox 100% on R/A; jl7 12:30 BP 113 / 60; Pulse 89; Resp 16 S; Pulse Ox 100% on R/A; jl7 13:56 BP 124 / 64; Pulse 93; Resp 19 S; Pulse Ox 100% on R/A; jl7 07:43 Body Mass Index 25.72 (79.00 kg, 175.26 cm) MDM: 07:52 Data reviewed: vital signs, nurses notes, lab test result(s), radiologic studies. kdr Counseling: I had a detailed discussion with the patient and/or guardian regarding: the historical points, exam findings, and any diagnostic results supporting the discharge/admit diagnosis, lab results, radiology results. 14:03 Patient medically screened. kdr 08/18 07:37 Order name: Basic Metabolic Panel; Complete Time: 10:13 kdr 08/18 07:37 Order name: CBC with Diff; Complete Time: 10:13 kdr 08/18 07:37 Order name: LFT's; Complete Time: 10:13 kdr 08/18 07:37 Order name: Magnesium; Complete Time: 10: kdr 08/18 07:37 Order name: NT PRO-BNP; Complete Time: 10:13 kdr 08/18 07:37 Order name: PT-INR; Complete Time: 10: kdr 08/18 07:37 Order name: Troponin (emerg Dept Use Only); Complete Time: 10:13 kdr 08/18 07:37 Order name: XRAY Chest (1 view); Complete Time: 10:13 [facility] 08/18 07:37 Order name: EKG; Complete Time: 07:38 kdr 08/18 08:05 Order name: Extremity Nonvascular Complete; Complete Time: 10:13 EDMS 08/18 12:17 Order name: Urine Culture [facility] 08/18 12:43 Order name: Urine Dipstick--Ancillary (enter results) eb 08/18 07:37 Order name: Cardiac monitoring; Complete Time: 07:59 [facility] 08/18 07:37 Order name: EKG - Nurse/Tech; Complete Time: 07:59 [facility] 08/18 07:37 Order name: IV Saline Lock; Complete Time: 08:22 [facility] 08/18 07:37 Order name: Labs collected and sent; Complete Time: 08:22 [facility] 08/18 07:37 Order name: O2 Per Protocol; Complete Time: 07:59 [facility] 08/18 07:37 Order name: O2 Sat Monitoring; Complete Time: 07:59 [facility] 08/18 12:17 Order name: Urine Dipstick-Ancillary (obtain specimen); Complete Time: 12:34 kdr Administered Medications: 12:05 Drug: Ketamine 1 mg/kg Route: IVP; Site: left antecubital; jl7 12:30 Follow up: Response: No adverse reaction jl7 Disposition: 08/18/19 14:03 Discharged to Home. Impression: Altered mental status, unspecified, Confusion, , Hallucinations, unspecified. - Condition is Stable. - Discharge Instructions: Confusion. - Medication Reconciliation Form, Thank You Letter form. - Follow up: Private Physician; When: 2 - 3 days; Reason: If symptoms return, Further diagnostic work-up, Recheck today's complaints, Continuance of care, Re-evaluation by your physician. - Problem is an acute exacerbation. Signatures: Dispatcher [employer] EDMS Andres Singletary MD MD kdr Veronica Milton RN RN tEienne Howe RN RN jl7 Corrections: (The following items were deleted from the chart) 08:05 07:51 Extrmty Nonvasular Limited+US.RAD.BRZ ordered. EDMA EDMS 14:44 14:03 08/18/2019 14:03 Discharged to Home. Impression: Altered mental status, jl7 unspecified; Confusion, ; Hallucinations, unspecified. Condition is Stable. Forms are Medication Reconciliation Form, Thank You Letter, Antibiotic Education, Prescription Opioid Use. Follow up: Private Physician; When: 2 - 3 days; Reason: If symptoms return, Further diagnostic work-up, Recheck today's complaints, Continuance of care, Re-evaluation by your physician. Problem is an acute exacerbation. kdr
[2019-08-18 15:11] VITALS: TEMP 98; O2SAT 100
[2019-08-18 15:19] VITALS: BP 124/64
== END 2019-08-18 14:44 | disposition home or self-care (01) ==
LOC: ER 07:28
DX: R44.3 Hallucinations, unspecified (principal); R41.82 Altered mental status, unspecified; R41.0 Disorientation, unspecified; I10 Essential (primary) hypertension; E78.00 Pure hypercholesterolemia, unspecified; Z85.528 Personal history of other malignant neoplasm of kidney
CPT/HCPCS: 36415; 71045; 76881; 80048; 80076; 81003; 83735; 83880; 84484; 85025; 85610; 87086; 87088; 93005; 96374; 99284

== ENCOUNTER 2019-10-12 07:03 | Inpatient (IN) | payer OTHER ==
--- OUTSIDE RECORDS SUMMARY | 2019-10-12 07:06 | XMS REPORT ---
:1930 [facility] Address [address] [place] [address] Care Team Providers Name Role Phone ROGE [...] Acid (test code=UA) 6.6 mg/dL 3.4-7.0 Lipid [id number] 00:28:00 Test Item Value Reference Range Comments Cholesterol (test 162 mg/dL 0-200 code=CHOL) Triglycerides (test 220 mg/dL 9-200 Unable to calculate, Trig >400 code=TRIG) HDL (test code=HDL) 32 mg/dL 40-60 Chol/HDL (test 5.1 Ratio 0.0-5.0 code=CHOLPHDL) LDL, Calculated (test 86 mg/dL 0-130 (NOTE)RISK OF HEART code=LDLC) DISEASEPublished by Chinese Heart AssociationAnalyte Optimal Boderline Increased RiskCHOL <200 200-239 >240TRIG <150 150-199 >200HDL Male: >60 <40HDL Female: >60 <50LDL <100 130-159 >160LDL NEAR OPTIMAL IS 100-129 VLDL (test code=VLDL) 44 mg/dL 5-40 LDL/HDL (test code=LDLPHDL) 3
[2019-10-12 07:53] LABS: Absolute Lymphocytes (CBC) 1.1 K/uL (0.7-4.9); Basophils % 0.5 % (0-1.3); Hematocrit 34.3 % (39.6-49.0); Lymphocytes % 10.5 % (15.3-44.8)
[2019-10-12 07:54] LABS: Protime INR 1.11
[2019-10-12 08:14] LABS: Albumin 2.7 g/dL (3.4-5.0); Bilirubin Direct 0.2 mg/dL (0-0.2); Bilirubin Total 0.5 mg/dL (0.2-1.0); Magnesium 2.2 mg/dL (1.8-2.4); Potassium 3.7 mmol/L (3.5-5.1); Protein, Total 7.7 g/dL (6.4-8.2); Troponin (Emerg Dept Use Only) 0.13 ng/mL (0.0-0.045)
[2019-10-12] MEDS ORDERED: NA CHLORIDE 0.9% 2,000 ML ONE (08:41)
--- NOTE | 2019-10-12 09:05 | RAD REPORT ---
EXAM DESCRIPTION: CT - Head C Spine Cap Silvano Carl - 10/12/2019 8:35 am CLINICAL HISTORY: Fall, altered mental status, head, neck, chest and abdomen pain COMPARISON: CT chest July 2018 TECHNIQUE: Axial [address] head images were obtained. Axial [address] cervical spine images were obtaine d with sagittal and coronal reconstruction images reviewed. During dynamic enhancement of 100mL non-i onic contrast, axial 5 mm images of the chest, abdomen and pelvis were obtained. All CT scans are performed using dose optimization technique as appropriate and may include automated exposure control or mA/KV adjustment according to patient size. FINDINGS: No intracranial hemorrhage, mass or edema. No midline shift or abnormal fluid collection. Moderate severity atrophy and chronic ischemic change present. Ventricles in proportion to volume los s. Mastoid air cells and paranasal sinuses are clear. No skull fracture. CT cervical spine imaging shows normal height. No subluxation displacement abnormalities. Patient has prominent degenerative change at the C1-2 level with dense calcifications of the transverse ligament . Prominent facet degenerative change noted on the left at C2-3. Facet degenerative change and uncove rtebral joint hypertrophy cause left greater than right foraminal stenosis at C3-4 with bilateral for aminal stenosis at C4-5 C5-6 and C6-7. Disc space narrowing present at C5-6 and C6-7. No central spin al stenosis suspected. No paraspinal mass or hematoma seen. Central canal detail is inherently limite d. Concerns for traumatic disc herniation or traumatic cord injury can be further addressed with MR johnny davey. Trace amount of atelectasis noted on the left. There is a 5 millimeter juxtapleural nodule in the praful gula. No left-sided pneumothorax or pleural fluid collection. No acute left hemithorax finding. Dense consolidation is present in the right upper lobe. This abuts the major and minor fissures. This exte nds from the lateral pleural margin to the hilum. Trace atelectasis in the right lung base. No medias tinal hematoma and the aorta and pulmonary arteries are unremarkable. No chest will mass or abnormal axillary finding. No displaced rib fracture or other significant bony finding. Bilateral shoulder drew int degenerative change present with periarticular degenerative calcifications. The liver, spleen and pancreas show no acute findings. Gallbladder is partially contracted. No biliar y tree dilatation. Acute bowel injury is not suspected. No free air or free fluid. There is a large a mount of stool present filling and distending the colon. No omental thickening. No bulky lymphadenopa thy. Patient has an 8.5 centimeter heterogeneously enhancing mass in the upper pole of the right kidney. M ass appears to be centrally necrotic. Renal function is otherwise symmetric. Bilateral renal cysts ar e present. No left-sided solid mass identified. Partially filled urinary bladder shows no suspicious finding. Prominent right hip joint degenerative changes are present. 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 Severe degenerative changes are present in the lower lumbar spine. Bilateral foraminal s tenosis present L4-5 and L5-S1. IMPRESSION: Approximately 8.5 centimeter renal cell carcinoma in the upper pole of the right kidney. No tumor thrombus or other findings for intraabdominal spread of disease. Moderately large area of consolidated parenchyma in the posterior inferior right upper lobe. This is more typical for pneumonia. However, tissue is relatively dense. Metastatic process cannot be exclude d. Moderate severity atrophy and chronic ischemic changes with no acute CT Head finding. CT cervical spine degenerative change as detailed. No acute finding. No traumatic injury in the chest abdomen or pelvis. Patient has advanced degenerative changes as detailed. No acute bony injury and no pathologic bone pr ocess confirmed.
--- NOTE | 2019-10-12 09:15 | RAD REPORT ---
EXAM DESCRIPTION: RAD - Chest Single View - 10/12/2019 8:44 am CLINICAL HISTORY: Fall, chest pain COMPARISON: August 18 portable chest, July [address] chest TECHNIQUE: AP portable chest image was obtained [id number] hours . FINDINGS: Focal masslike consolidation is seen in the right midlung field. This is slightly progress uriel from the August portable study and progressive from the July 21 CT chest. Patient has a know n right renal mass. Persistent pneumonia would be on likely without supporting clinical findings. Mal ignant mass would be a primary consideration. No other focal infiltrate. No failure or volume overload. Heart and vasculature are normal. No measur able pleural effusion and no pneumothorax. No acute bony abnormality seen. No acute aortic findings s uspected. IMPRESSION: Focal masslike consolidation in the right upper lobe showing progression comparing back to August 2019 chest film and clearly progressive from 2018. Persistent or progressive pneumonia is possible but unlikely unless there are strong supporting clini eusebia findings. Metastatic lung mass would also be a primary consideration given the large right renal malignancy.
--- NOTE | 2019-10-12 09:52 | EDPHYS ---
Physician Documentation [facility] Name: Rupert Cole Jr Age: 89 yrs Sex: Male : 1930 Arrival Date: 10/12/2019 Time: 07:09 Bed 15 Private MD: ED Physician Ronaldo Mahajan HPI: 10/12 07:12 This 89 yrs old Black Male presents to ER via Unassigned with complaints of found on cp ground. 07:15 The patient presents with decreased mental status. cp 07:15 Onset: The symptoms/episode began/occurred at an unknown time. Possible causes: cp unknown. EMS reports patient's son found patient on hardwood floor this morning and called EMS. Unknown downtime . Historical: - Allergies: 07:24 No Known Allergies; ph - Home Meds: 07:24 amlodipine 5 mg tab 1 tab once daily [Active]; aspirin 81 mg Oral chew 1 tab once daily ph [Active]; hydrochlorothiazide 12.5 mg Oral cap 1 cap once daily [Active]; losartan 50 mg Oral tab 1 tab once daily [Active]; metoprolol tartrate 50 mg Oral tab once daily [Active]; pravastatin 80 mg Oral tab 1 tab once daily [Active]; - PMHx: 07:24 High Cholesterol; Hypertension; kidney CA; ph - Immunization history: Last tetanus immunization: unknown. - Social history:: Smoking status: unknown. - Ebola Screening: : No symptoms or risks identified at this time. ROS: 07:20 Neuro: Positive for altered mental status. cp 07:20 Constitutional: Negative for fever. cp 07:20 All other systems are negative. Exam: 07:33 Constitutional: The patient appears alert, awake, non-diaphoretic, non-toxic, well cp developed, well nourished. 07:33 Head/Face: Normocephalic, atraumatic. cp 07:33 Eyes: Periorbital structures: appear normal, Pupils: equal, round, and reactive to light and accomodation, Conjunctiva: normal, no exudate, no injection, Sclera: no appreciated abnormality, Lids and lashes: appear normal, bilaterally. 07:33 ENT: External ear(s): are unremarkable, Ear canal(s): are normal, clear, TM's: dullness, bilaterally, Nose: is normal, Mouth: Lips: moist, Oral mucosa: moist, Posterior pharynx: is normal, airway is patent. 07:33 Neck: C-spine: crepitus, is not appreciated. 07:33 Chest/axilla: Inspection: normal, Palpation: is normal, no crepitus, no tenderness. 07:33 Cardiovascular: Rate: normal, Rhythm: regular, Edema: is not appreciated, JVD: is not appreciated. 07:33 Respiratory: the patient does not display signs of respiratory distress, Respirations: normal, no use of accessory muscles, no retractions, no splinting, no tachypnea, labored breathing, is not present, Breath sounds: are clear throughout, no decreased breath sounds, no stridor, no wheezing. 07:33 Abdomen/GI: Inspection: abdomen appears normal, Bowel sounds: active, all quadrants, Palpation: soft, in all quadrants, involuntary guarding, is not appreciated. 07:33 Back: vertebral tenderness, is not appreciated. 07:33 Skin: cellulitis, is not appreciated, no rash present. 07:33 Neuro: Mentation: responsive to voice confused, unable to follow commands, Motor: moves all fours. 09:25 ECG was reviewed by the Attending Physician. cp Vital Signs: 07:18 BP 129 / 65; Pulse 90; Resp 18; Temp 97.6(O); Pulse Ox 99% on R/A; Weight 81.65 kg; ph Height 5 ft. 11 in. (180.34 cm); 08:22 BP 122 / 87; Pulse 88; Resp 18; Temp 97.6(O); Pulse Ox 99% on R/A; mh5 09:01 BP 130 / 66; Pulse 90; Resp 20; Pulse Ox 100% on R/A; ph 10:10 BP 131 / 65; Pulse 82; Resp 18; Pulse Ox 99% on R/A; ph 11:52 BP 112 / 67; Pulse 97; Resp 14; Temp 98.0(O); Pulse Ox 100% on R/A; mh5 13:00 BP 127 / 68; Pulse 78; Resp 16; Temp 97.8; Pulse Ox 98% on R/A; ph 07:18 Body Mass Index 25.10 (81.65 kg, 180.34 cm) ph Stanton Coma Score: 07:10 Eye Response: to voice(3). Verbal Response: confused(4). Motor Response: obeys ph commands(6). Total: 13. 09:01 Eye Response: to voice(3). Verbal Response: confused(4). Motor Response: obeys ph commands(6). Total: 13. 10:10 Eye Response: to voice(3). Verbal Response: confused(4). Motor Response: obeys ph commands(6). Total: 13. 13:00 Eye Response: spontaneous(4). Verbal Response: oriented(5). Motor Response: obeys ph commands(6). Total: 15. Trauma Score (Adult): 07:10 Eye Response: to voice(0); Verbal Response: confused(1); Motor Response: obeys ph commands(2); Systolic BP: > 89 mm Hg(4); Respiratory Rate: 10 to 29 per min(4); Stanton Score: 13; Trauma Score: 11 09:01 Eye Response: to voice(0); Verbal Response: confused(1); Motor Response: obeys ph commands(2); Systolic BP: > 89 mm Hg(4); Respiratory Rate: 10 to 29 per min(4); Stanton Score: 13; Trauma Score: 11 10:10 Eye Response: to voice(0); Verbal Response: confused(1); Motor Response: obeys ph commands(2); Systolic BP: > 89 mm Hg(4); Respiratory Rate: 10 to 29 per min(4); Ace Score: 13; Trauma Score: 11 13:00 Eye Response: spontaneous(1); Verbal Response: oriented(1); Motor Response: obeys ph commands(2); Systolic BP: > 89 mm Hg(4); Respiratory Rate: 10 to 29 per min(4); Stanton Score: 15; Trauma Score: 12 MDM: 07:11 Patient medically screened. cp 09:30 Data reviewed: vital signs, nurses notes, lab test result(s), EKG, radiologic studies, cp CT scan, plain films. 09:30 Test interpretation: by ED physician or midlevel provider: ECG, plain radiologic cp studies. Response to treatment: the patient's symptoms have mildly improved after treatment. Physician consultation: Vishal Aggarwal MD was called at 09:25, was contacted at 09:25, regarding admission, to the telemetry unit. patient's condition. 10/12 07:19 Order name: Basic Metabolic Panel; Complete Time: 08:14 cp 10/12 08:56 Interpretation: Normal except: GLUC 109; BUN 22; CRE 1.42; GFR 57. cp 10/12 07:19 Order name: CBC with Diff; Complete Time: 08:03 cp 10/12 08:03 Interpretation: Normal except: RBC 4.20; HGB 10.9; HCT 34.3; MCH 26.0; MCHC 31.9; RDW cp 16.7; HEATHER% 83.0; LYM% 10.5; NEUT A 8.5. 10/12 07:19 Order name: LFT's; Complete Time: 08:14 cp 10/12 07:19 Order name: Magnesium; Complete Time: 08:14 cp 10/12 07:19 Order name: NT PRO-BNP; Complete Time: 08:14 cp 10/12 08:56 Interpretation: Abnormal: NT PRO-BNP 1483. cp 10/12 07:19 Order name: PT-INR; Complete Time: 08:03 cp 10/12 07:19 Order name: Troponin (emerg Dept Use Only); Complete Time: 08:14 cp 10/12 08:56 Interpretation: Abnormal: TROPED 0.13. cp 10/12 07:19 Order name: Blood Culture Adult (2) cp 10/12 07:19 Order name: Procalcitonin; Complete Time: 08:55 cp 10/12 08:56 Interpretation: Reviewed. cp 10/12 07:19 Order name: Urine Microscopic Only cp 10/12 07:19 Order name: Lactate; Complete Time: 08:14 cp 10/12 08:14 Interpretation: Abnormal: LAC 2.5. cp 10/12 08:10 Order name: Glucose, Ancillary Testing; Complete Time: 08:14 EDMS 10/12 09:53 Order name: CK cp 10/12 11:13 Order name: Lactate Sepsis 2 HR Follow-up EDMS 10/12 07:13 Order name: CT Traumagram (Head C Spine CAP W Con); Complete Time: 09:23 cp 10/12 07:19 Order name: XRAY Chest (1 view); Complete Time: 09:23 cp 10/12 07:19 Order name: EKG; Complete Time: 07:19 cp 10/12 07:19 Order name: Cardiac monitoring; Complete Time: 08:31 cp 10/12 07:19 Order name: EKG - Nurse/Tech; Complete Time: 10:11 cp 10/12 07:19 Order name: IV Saline Lock; Complete Time: 08:18 cp 10/12 07:19 Order name: Labs collected and sent; Complete Time: 08:18 cp 10/12 07:19 Order name: O2 Per Protocol; Complete Time: 08:31 cp 10/12 11:26 Order name: Urine Dipstick--Ancillary (enter results) eb 10/12 11:42 Order name: Urine Dipstick-Ancillary EDMS 10/12 07:19 Order name: O2 Sat Monitoring; Complete Time: 08:31 cp 10/12 07:19 Order name: Montesinos; Complete Time: 08:19 cp 10/12 07:19 Order name: Urine Dipstick-Ancillary (obtain specimen); Complete Time: 11:41 cp 10/12 07:19 Order name: Vital Signs: core temp; Complete Time: 07:24 cp 10/12 10:16 Order name: Labs - recollect needed: repeat Lactate sepsis; Complete Time: 11:43 sg EC:25 Rate is 94 beats/min. Rhythm is regular. FL interval is normal. QRS interval is normal. cp QT interval is normal. Interpreted by me. Reviewed by me. Administered Medications: 08:55 Drug: NS 0.9% (30 ml/kg) 30 ml/kg {Note: 2400 mL bolus administered.} Route: IV; Rate: ph bolus; Site: left hand; 11:30 Follow up: IV Status: Completed infusion; IV Intake: 2400ml ph 09:01 Not Given (bolus administered per sepsis protocol): NS 0.9% 250 ml IV at bolus once ph 10:45 Drug: Rocephin - (cefTRIAXone) 1 grams Route: IVPB; Infused Over: 30 mins; Site: left ph hand; 11:00 Follow up: Response: No adverse reaction; IV Status: Completed infusion ph 10:50 Drug: Aspirin Suppository 300 mg Route: FL; ph 13:00 Follow up: Response: No adverse reaction ph 11:25 Drug: NS 0.9% 1000 ml Route: IV; Rate: 75 ml/hr; Site: left hand; ph 13:30 Follow up: Response: No adverse reaction; IV Status: Infusion continued upon admission ph 11:25 Drug: Zithromax 500 mg Route: IVPB; Infused Over: 1 hrs; Site: left hand; ph 12:35 Follow up: Response: No adverse reaction; IV Status: Completed infusion ph Disposition: 14:15 Chart complete. cp 10/13 07:53 Co-signature as Attending Physician, Ronaldo Mahajan MD I agree with the assessment and prakash plan of care. Disposition: 10/12/19 09:51 Hospitalization ordered by Vishal Aggarwal for Inpatient Admission. Preliminary diagnosis are Pneumonia due to other specified bacteria, Altered mental status, unspecified, Fall on same level from slipping, tripping and stumbling. - Bed requested for Telemetry/MedSurg (Inpatient). - Status is Inpatient Admission. iw - Condition is Fair. - Problem is new. - Symptoms have improved. UTI on Admission? No Signatures: Dispatcher [employer] EDMS Tera Johnson RN RN Ronaldo Mahajan MD MD cha Williams, Irene, RN RN Lashon Castellano RN RN Ronaldo Best PA PA cp Aguilar, Jose, RN RN [facility] Symone Bhatia Corrections: (The following items were deleted from the chart) 10/12 07:27 07:26 Neuro: Positive for altered mental status, cp cp 07:27 07:26 Constitutional: Negative for fever, cp cp 07:27 07:26 Unable to obtain ROS due to altered mental status, cp cp 10:15 09:51 Hospitalization Ordered by Vishal Aggarwal MD for Inpatient Admission. Preliminary eb diagnosis is Pneumonia due to other specified bacteria; Altered mental status, unspecified; Fall on same level from slipping, tripping and stumbling. Bed requested for Telemetry/MedSurg (Inpatient). Status is Inpatient Admission. Condition is Fair. Problem is new. Symptoms have improved. UTI on Admission? No. cp 12:37 10:15 10/12/2019 09:51 Hospitalization Ordered by Vishal Aggarwal MD for Inpatient ja1 Admission. Preliminary diagnosis is Pneumonia due to other specified bacteria; Altered mental status, unspecified; Fall on same level from slipping, tripping and stumbling. Bed requested for Telemetry/MedSurg (Inpatient). Status is Inpatient Admission. Condition is Fair. Problem is new. Symptoms have improved. UTI on Admission? No. eb 13:58 12:37 10/12/2019 09:51 Hospitalization Ordered by Vishal Aggarwal MD for Inpatient iw Admission. Preliminary diagnosis is Pneumonia due to other specified bacteria; Altered mental status, unspecified; Fall on same level from slipping, tripping and stumbling. Bed requested for Telemetry/MedSurg (Inpatient). Status is Inpatient Admission. Condition is Fair. Problem is new. Symptoms have improved. UTI on Admission? No. ja1
--- NOTE | 2019-10-12 09:52 | ER ---
Nurse's Notes [facility] Name: Rupert Coel Jr Age: 89 yrs Sex: Male : 1930 Arrival Date: 10/12/2019 Time: 07:09 Bed 15 Private MD: Diagnosis: Pneumonia due to other specified bacteria;Altered mental status, unspecified;Fall on same level from slipping, tripping and stumbling Presentation: 10/12 07:13 Presenting complaint: EMS states: Unwitnessed fall at home, found on floor by son at ph 0600, last seen at 0200, family reports that pt has been acting confused the past few days, experiencing insomnia and frequent urination, VSS en route, temp for EMS 96.7 temporal, [id number]. Transition of care: patient was not received from another setting of care. Onset of symptoms was October 12, 2019. Risk Assessment: Do you want to hurt yourself or someone else? Patient reports no desire to harm self or others. Initial Sepsis Screen: Does the patient meet any 2 criteria? Temp <36.0*C (96.8*F)) or > 38.3*C (100.9*F). Does the patient have a suspected source of infection? No. Patient's initial sepsis screen is negative. Care prior to arrival: IV initiated. 20 GA, in the left antecubital area, Glucose check: 130. 07:13 Method Of Arrival: EMS: [facility] 07:13 Acuity: NHUNG 3 07:13 Mechanism of Injury: Fall from standing position. Trauma event details: Injury occurred in the [facility], Injury occurred: at home. Injury occurred: October 12, 2019. Trauma Activation: Alert Physician: ED Physician; Name: Roshan Best; Notified At: 07:12; Arrived At: 07:12 Physician: General Surgeon; Name: ; Notified At: 07:12; Arrived At: Physician: Radiology; Name: ; Notified At: 07:12; Arrived At: Physician: Respiratory; Name: ; Notified At: 07:12; Arrived At: Physician: Lab; Name: ; Notified At: 07:12; Arrived At: Historical: - Allergies: 07:24 No Known Allergies; ph - Home Meds: 07:24 amlodipine 5 mg tab 1 tab once daily [Active]; aspirin 81 mg Oral chew 1 tab once daily ph [Active]; hydrochlorothiazide 12.5 mg Oral cap 1 cap once daily [Active]; losartan 50 mg Oral tab 1 tab once daily [Active]; metoprolol tartrate 50 mg Oral tab once daily [Active]; pravastatin 80 mg Oral tab 1 tab once daily [Active]; - PMHx: 07:24 High Cholesterol; Hypertension; kidney CA; ph - Immunization history: Last tetanus immunization: unknown. - Social history:: Smoking status: unknown. - Ebola Screening: : No symptoms or risks identified at this time. Screenin:21 Abuse screen: Denies threats or abuse. Denies injuries from another. Nutritional ph screening: No deficits noted. Tuberculosis screening: No symptoms or risk factors identified. Fall Risk Fall in past 12 months (25 points). No secondary diagnosis (0 pts). IV access (20 points). Ambulatory Aid- None/Bed Rest/Nurse Assist (0 pts). Gait- Weak (10 pts.). Mental Status- Overestimates/Forgets Limitations (15 pts.). Total Doyle Fall Scale indicates High Risk Score (45 or more points). Fall prevention measures have been instituted. Side Rails Up X 2 Placed Close to Nursing Station Frequent Obs/Assessments Occuring Family Present and informed to notify staff if the need to leave the bedside As available patient and family educated on Fall Prevention Program and Strategies. Primary Survey: 07:20 NO uncontrolled hemorrhage observed. A: The patient needs verbal stimulation to ph respond. Airway: patent, No supplemental oxygen in use on arrival. Oral cavity: clear, Trachea midline. Breathing/Chest: Respiratory pattern: regular, Respiratory effort: spontaneous, unlabored. Circulation: Cardiac rhythm: sinus rhythm Skin color: pink, Skin temperature: dry, cool. Disability Verbal Stimuli. Exposure/Environment: There is no evidence of uncontrolled external bleeding. No obvious injuries are noted at this time. A warming method has been applied: A warm blanket has been provided to the patient. 13:58 Reassessment Airway Airway Patent Breathing/Chest Respiratory pattern Regular ph Respiratory effort Spontaneous Unlabored Disability Alert. Assessment: 07:15 General: Appears in no apparent distress. comfortable, slender, Behavior is ph cooperative, drowsy, quiet. Pain: Complains of pain in right arm and right leg. Neuro: Level of Consciousness is awake, obeys commands, confused, lethargic, Oriented to person, Speech is slurred, Pupils are PERRLA. Cardiovascular: Capillary refill < 3 seconds in bilateral fingers Patient's skin is warm and dry. Rhythm is regular. Respiratory: Airway is patent Respiratory effort is even, unlabored, Respiratory pattern is regular, symmetrical. Derm: Skin is fragile, is thin, Skin is dry, Skin is normal, Skin temperature is cool. Musculoskeletal: Circulation, motion, and sensation intact. Injury Description: Abrasion sustained to right knee. 08:15 Reassessment: Multiple attempts to straight cath pt unsuccessful, condom cath placed. ph 08:23 Reassessment: Pt taken to CT via stretcher. ph 09:30 Reassessment: Patient appears in no apparent distress at this time. No changes from ph previously documented assessment. Patient and/or family updated on plan of care and expected duration. Pain level reassessed. 10:30 Reassessment: Patient appears in no apparent distress at this time. Patient and/or ph family updated on plan of care and expected duration. Pain level reassessed. Pt more alert after IV fluids, oriented to person and place, VSS< family at bedside. 11:30 Reassessment: Patient appears in no apparent distress at this time. No changes from ph previously documented assessment. Patient and/or family updated on plan of care and expected duration. Pain level reassessed. 12:30 Reassessment: Patient appears in no apparent distress at this time. Patient and/or ph family updated on plan of care and expected duration. Pain level reassessed. 13:30 Reassessment: Patient appears in no apparent distress at this time. Patient and/or ph family updated on plan of care and expected duration. Pain level reassessed. Pt assisted to bedside commode to have BM. Vital Signs: 07:18 BP 129 / 65; Pulse 90; Resp 18; Temp 97.6(O); Pulse Ox 99% on R/A; Weight 81.65 kg; ph Height 5 ft. 11 in. (180.34 cm); 08:22 BP 122 / 87; Pulse 88; Resp 18; Temp 97.6(O); Pulse Ox 99% on R/A; mh5 09:01 BP 130 / 66; Pulse 90; Resp 20; Pulse Ox 100% on R/A; ph 10:10 BP 131 / 65; Pulse 82; Resp 18; Pulse Ox 99% on R/A; ph 11:52 BP 112 / 67; Pulse 97; Resp 14; Temp 98.0(O); Pulse Ox 100% on R/A; mh5 13:00 BP 127 / 68; Pulse 78; Resp 16; Temp 97.8; Pulse Ox 98% on R/A; ph 07:18 Body Mass Index 25.10 (81.65 kg, 180.34 cm) ph Palco Coma Score: 07:10 Eye Response: to voice(3). Verbal Response: confused(4). Motor Response: obeys ph commands(6). Total: 13. 09:01 Eye Response: to voice(3). Verbal Response: confused(4). Motor Response: obeys ph commands(6). Total: 13. 10:10 Eye Response: to voice(3). Verbal Response: confused(4). Motor Response: obeys ph commands(6). Total: 13. 13:00 Eye Response: spontaneous(4). Verbal Response: oriented(5). Motor Response: obeys ph commands(6). Total: 15. Trauma Score (Adult): 07:10 Eye Response: to voice(0); Verbal Response: confused(1); Motor Response: obeys ph commands(2); Systolic BP: > 89 mm Hg(4); Respiratory Rate: 10 to 29 per min(4); Ace Score: 13; Trauma Score: 11 09:01 Eye Response: to voice(0); Verbal Response: confused(1); Motor Response: obeys ph commands(2); Systolic BP: > 89 mm Hg(4); Respiratory Rate: 10 to 29 per min(4); Palco Score: 13; Trauma Score: 11 10:10 Eye Response: to voice(0); Verbal Response: confused(1); Motor Response: obeys ph commands(2); Systolic BP: > 89 mm Hg(4); Respiratory Rate: 10 to 29 per min(4); Palco Score: 13; Trauma Score: 11 13:00 Eye Response: spontaneous(1); Verbal Response: oriented(1); Motor Response: obeys ph commands(2); Systolic BP: > 89 mm Hg(4); Respiratory Rate: 10 to 29 per min(4); Ace Score: 15; Trauma Score: 12 ED Course: 07:09 Patient arrived in ED. iw 07:11 Ronaldo Best PA is PHCP. cp 07:11 Saul Michele MD is Attending Physician. cp 07:11 Ronaldo Mahajan MD is Attending Physician. cp 07:12 Lashon Castellano, DANIELA is Primary Nurse. ph 07:18 Triage completed. ph 08:16 Initial lab(s) drawn, by oh, sent to lab. Inserted saline lock: 20 gauge in right 5 antecubital area, using aseptic technique. Blood collected. 08:16 Patient has correct armband on for positive identification. Bed in low position. Call 5 light in reach. Side rails up X2. Warm blanket given. tanning consultant on. Pulse ox on. NIBP on. 08:19 Procalcitonin Sent. mh5 08:19 Blood Culture Adult (2) Sent. mh5 08:26 Arm band placed on right wrist. ph 08:27 Patient maintains SpO2 saturation greater than 95% on room air. Thermoregulation: warm ph blanket given to patient. 08:29 Maintain EMS IV. Dressing intact. Site clean \T\ dry. Gauge \T\ site: 20 L hand. ph 08:36 CT Traumagram (Head C Spine CAP W Con) In Process Unspecified. EDMS 08:43 XRAY Chest (1 view) In Process Unspecified. EDMS 09:50 Vishal Aggarwal MD is Hospitalizing Provider. cp 13:58 No provider procedures requiring assistance completed. Patient did not have IV access ph during this emergency room visit. Administered Medications: 08:55 Drug: NS 0.9% (30 ml/kg) 30 ml/kg {Note: 2400 mL bolus administered.} Route: IV; Rate: ph bolus; Site: left hand; 11:30 Follow up: IV Status: Completed infusion; IV Intake: 2400ml ph 09:01 Not Given (bolus administered per sepsis protocol): NS 0.9% 250 ml IV at bolus once ph 10:45 Drug: Rocephin - (cefTRIAXone) 1 grams Route: IVPB; Infused Over: 30 mins; Site: left ph hand; 11:00 Follow up: Response: No adverse reaction; IV Status: Completed infusion ph 10:50 Drug: Aspirin Suppository 300 mg Route: WI; ph 13:00 Follow up: Response: No adverse reaction ph 11:25 Drug: NS 0.9% 1000 ml Route: IV; Rate: 75 ml/hr; Site: left hand; ph 13:30 Follow up: Response: No adverse reaction; IV Status: Infusion continued upon admission ph 11:25 Drug: Zithromax 500 mg Route: IVPB; Infused Over: 1 hrs; Site: left hand; ph 12:35 Follow up: Response: No adverse reaction; IV Status: Completed infusion ph Intake: 07:10 PO: 0ml; Total: 0ml. ph 11:30 IV: 2400ml; Total: 2400ml. ph 13:00 IV: 2400ml (IV Fluid); Total: 4800ml. ph Output: 07:10 Urine: 0ml; Total: 0ml. ph Outcome: 09:51 Decision to Hospitalize by Provider. cp 13:58 Patient left the ED. iw 13:58 Admitted to Tele accompanied by tech, family with patient, via stretcher, with chart. ph 13:58 Condition: improved Signatures: Dispatcher [employer] Any Jackson RN RN iw Lashon Castellano RN RN ph Ronaldo Best PA PA cp Martinez, [facility]
[2019-10-12] MEDS ORDERED: ASPIRIN 81 MG CHEWABLE TABLET ONE (10:33)
[2019-10-12] MEDS ORDERED: CEFTRIAXONE/SWI 1gm 1 GM/10 ML SYR ONE (10:33)
[2019-10-12] MEDS ORDERED: AZITHROMYCIN IV 500 MG in NA CHLORIDE 0.9% 250 ML IVPB ONE (10:45)
[2019-10-12 11:42] LABS: Urine Blood 3+ (NEG); Urine Glucose NEGATIVE (NEG); Urine Protein 1+ (NEG); Urine pH 5.5 (5.0-7.0)
[2019-10-12 11:55] LABS: Urine RBC >50 /HPF (NONE SEEN)
[2019-10-12 11:56] LABS: Urine Bacteria <20 /HPF (NONE SEEN); Urine Culture Reflex Order REFLEXED
--- NOTE | 2019-10-12 13:22 | EKG ---
Test Date: 2019-10-12 Test Time: 09:16:28 Unit Coordinator: COLLEEN MEASUREMENT RESULTS: Intervals: Rate: 94 WI: 186 QRSD: 78 QT: 374 QTc: 467 [place]: P: 81 WI: 186 QRS: 2 T: 41 INTERPRETIVE STATEMENTS: Normal sinus rhythm Cannot rule out Anteroseptal infarct, age undetermined Abnormal ECG Compared to ECG 08/18/2019 07:45:23 No significant changes Electronically Signed On 10-12-19 13:20:58 CHERRY CUTTER by Mario Deo
[2019-10-12] MEDS ORDERED: IPRATROPIUM BROM 0.5MG/2.5ML NEB PRN (14:10)
[2019-10-12] MEDS ORDERED: ONDANSETRON 4 MG/2 ML VIAL IV PRN (14:10)
[2019-10-12] MEDS ORDERED: ALBUTEROL 2.5 MG/3 ML NEB SOL NEB PRN (14:10)
[2019-10-12] MEDS ORDERED: ACETAMINOPHEN 500 MG TAB PO PRN (14:10)
[2019-10-12 15:32] VITALS: BMI 25.1
[2019-10-12] MEDS ORDERED: INFLUENZA VACCINE (for 3y+) 0.5 ML DOSE IMVAC ONE (16:00)
[2019-10-12] MEDS ORDERED: PNEUMOCOCCAL VACCINE 0.5 ML IMVAC ONE (17:00)
[2019-10-12] MEDS: NA CHLORIDE 0.9% 1,000 ML IV SCH (17:13)
[2019-10-12] MEDS: ENOXAPARIN 30 MG/0.3 ML SQ SCH (17:14)
[2019-10-12] MEDS ORDERED: HOME MED 1 EA UNK (Pravastatin Sodium [Pravastatin Sodium] 80 MG) PO SCH (21:00)
[2019-10-12] MEDS: ATORVASTATIN 10 MG TAB PO SCH (21:40)
[2019-10-12] MEDS: CEFTRIAXONE/SWI 1gm 1 GM/10 ML SYR IVP SCH (21:41)
--- NOTE | 2019-10-13 00:48 | HP ---
Date of Admission: 10/12/2019 Chief Complaint: Altered mental status, generalized weakness, found down. Code Status: Full. Primary Care Physician: Out of town in [place]. Consultants: Dr. Doe, Cardiology. History Of Present Illness: The patient is an 89-year-old male with past medical history of CVA, hyp ertension, arthritis, history of kidney cancer, who was in his usual state of health until night prio r to admission when the patient had been somewhat confused, lethargic, had some generalized weakness. No significant fever or chills. Did have some lingering cough, but no significant sputum productio n. Patient was found down in the morning sometime after 2:30 a.m. According to the son, the patient was responsive, but he was lethargic and confused. The patient's symptoms are constant, moderate, p rogressively worsening. Patient was then brought into the ER for further evaluation. He was found t o be dehydrated, creatinine was bumped up to 1.42. Lactate was elevated at 2.5. Troponin was elevat ed at 0.13. His imaging study showed pneumonia of the right upper lobe. There is also possibility o f possible metastatic lung mass given the right large renal mass. Patient was referred for admission . He was given IV antibiotics and fluids. Patient was somewhat hypothermic and his temperature impr consuelo after being passively warmed in the ER. His traumagram did not show any acute fractures and did show the 8.5 cm renal cell carcinoma. When seen in the ER, he was awake, alert, oriented to self an d place, in some mild distress. Past Medical History: Hypertension, CVA in 2014, generalized osteoarthritis, renal cancer on the rig ht, opting not for further diagnosis and treatment. Past Surgical History: Abdominal surgery, prostate surgery. Allergies: NO KNOWN DRUG ALLERGIES. Medications: List reviewed. Social History: Patient denies any tobacco use, alcohol use, or illicit drug use. Lives at home wit h his son. At times does use assistive ambulatory device. Review of Systems: Ten-point system reviewed mainly with family's assistance. Otherwise, unremarkable except for HPI. Physical Examination: Vital Signs: Blood pressure 126/65, pulse 90, respirations 18, temperature 97.6, O2 99% on room air, BMI is 25. General: Awake, alert, and oriented x2, in some mild distress. Elderly male, ill-appearing, frail. HEENT: Normocephalic, atraumatic. PERRLA. EOMI. Dry mucous membranes. Oropharynx is clear. Conj unctivae are anicteric. Poor dentition. Oropharynx is clear. CV: S1, S2. Peripheral pulses weak. Respiratory: Diminished breath sounds on the right. No wheezing or stridor. No use of accessory mu scles. Gastrointestinal: Abdomen is soft, nontender, nondistended. Positive bowel sounds. No guarding or rigidity. Extremities: No clubbing, cyanosis. The patient has trace pedal edema. No calf tenderness. Neuro: The patient has generalized weakness, but no focal weakness. Speech is normal. No facial as ymmetry. Skin: No rashes, normal skin turgor. Psych: Deferred. Laboratory Data: WBC 10.2, H and H 10.9 and 34.3, platelets 317, neutrophils 83%. INR 1.11. Sodium 143, potassium 3.7, chloride 106, CO2 of 30, BUN 22, creatinine 1.42, glucose 109, lactate 2.5, repe at lactate is 1.3, calcium 9.8, magnesium 2.2, troponin 0.13. Albumin 2.7. Procalcitonin less than 0.05. CK level is 67. INR 1.11. UA shows negative nitrite, 1+ leukocyte esterase, greater than 50 rbc's, 5-10 wbc's, less than 20 bacteria. Imaging Studies: Chest x-ray shows a focal mass-like consolidation in the right upper lobe showing p rogression compared back to August 2019, chest film and clearly progressive from 2018. Persistent or progressive pneumonia is possible unlikely unless there are strong supporting clinical findings. Metastatic lung mass would also be a primary consideration given the large right renal malignancy. C T traumagram shows 8.5 cm renal cell carcinoma in the upper lobe of the right kidney. No tumor throm bus or other findings for intraabdominal spread of disease. Moderately large area of consolidated pa renchyma in the posterior inferior right upper lobe. This is more typical for pneumonia; however, ti ssues are relatively dense, metastatic process cannot be excluded. Moderate severity atrophy and chr onic ischemic changes with no acute head CT finding. CT cervical spine degenerative change as detail ed, no acute finding, no traumatic injuries in the chest, abdomen, or pelvis and advanced degenerativ e changes. No acute bony injury or pathologic bone process confirmed. EKG normal sinus rhythm, rate of 94, possible old infarct anteroseptal leads. Assessment: An 89-year-old male with, 1.Acute metabolic encephalopathy, likely related to pneumonia, urinary tract infection, doubt cerebr ovascular accident. Patient is now getting back to baseline. 2.Right upper lobe pneumonia likely postobstructive, possible malignancy with metastatic mass from t he right kidney. We will consult Pulmonology. Start on IV antibiotics. Obtain blood cultures and s putum cultures. 3.Large right renal carcinoma 8.5 cm. The patient's family is aware of this diagnosis. Patient ramos s not wish to pursue any further diagnosis or treatment as is being monitored by his primary in 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 Overall poor prognosis. 4.Essential hypertension. We will resume blood pressure medications as appropriate. 5.Hypothermia, resolved. 6.Status post fall, no acute trauma seen on traumagram and no acute intracranial bleed. We will con sult PT, fall precautions, and the patient will likely benefit from rehab versus SNF. 7.Generalized osteoarthritis. 8.Benign prostatic hypertrophy. Resume home medications as appropriate. Plan: Admit the patient to Med-Surg, place as inpatient. Length of stay greater than 2 midnights. Overall, poor prognosis. /KELLEY Voice ID: [id number]
[2019-10-13] MEDS: NA CHLORIDE 0.9% 1,000 ML IV SCH ×2 (03:30→09:09)
[2019-10-13 04:52] LABS: Absolute Lymphocytes (CBC) 1.8 K/uL (0.7-4.9); Basophils % 0.7 % (0-1.3); Hematocrit 32.7 % (39.6-49.0); Lymphocytes % 21.5 % (15.3-44.8); MPV 10.1 fL (7.6-11.3); RBC Red Blood Cell Count 3.99 M/uL (4.33-5.43)
[2019-10-13 05:23] LABS: Bilirubin Total 0.4 mg/dL (0.2-1.0); Potassium 4.4 mmol/L (3.5-5.1); Protein, Total 6.3 g/dL (6.4-8.2)
[2019-10-13] MEDS ORDERED: ASPIRIN 81 MG CHEWABLE TABLET ONE (09:07)
[2019-10-13] MEDS ORDERED: CEFTRIAXONE/SWI 1gm 1 GM/10 ML SYR ONE (09:07)
[2019-10-13] MEDS: AZITHROMYCIN IV 500 MG in NA CHLORIDE 0.9% 250 ML IVPB SCH (09:08)
[2019-10-13] MEDS: CEFTRIAXONE/SWI 1gm 1 GM/10 ML SYR IVP SCH ×2 (09:08→20:15)
[2019-10-13] MEDS: ASPIRIN 81 MG CHEWABLE TABLET PO SCH (09:08)
[2019-10-13] MEDS ORDERED: NA CHLORIDE 0.9% 1,000 ML ONE (09:19)
--- NOTE | 2019-10-13 12:16 | P.CNS ---
Date of Consult: 10/13/19 Reason for Consult: Left upper lobe pneumonia Chief Complaint: Altered mental status weakness and a fall History of Present Illness: Patient is 89 years of age some more debilitated he was had a fall became weak altered mental status came on rather acutely found to have a left upper lobe pneumonia he actually denies any pulmonary complaints supportive family at the bedside history of mass in the kidney been followed up by a urologist in [place] limited capacity of self-care no prior history of smoking or cancers Allergies No Known Allergies Allergy (Verified 10/12/19 14:14) Home Medications: Aspirin [Maya Chewable Aspirin] 81 mg PO DAILY 10/12/19 Losartan Potassium 50 mg PO DAILY 10/12/19 Metoprolol Succinate 50 mg PO BEDTIME 10/12/19 Pravastatin Sodium 80 mg PO BEDTIME 10/12/19 hydroCHLOROthiazide [Hydrochlorothiazide] 12.5 mg PO DAILY 10/12/19 - Past Medical/Surgical History Diabetic: No -: cva dec -: hypertension -: arthritis -: abdomen surgery -: protate surgery - Social History Smoking Status: Unknown if ever smoked Alcohol use: No CD- Drugs: No Caffeine use: No Place of Residence: Home Review of Systems 10-point ROS is otherwise unremarkable General: Weakness Physical Examination Temp Pulse Resp BP Pulse Ox 98.1 F 87 17 138/67 98 10/13/19 12:00 10/13/19 12:00 10/13/19 12:00 10/13/19 12:00 10/13/19 12:00 General: Alert, Oriented x3 HEENT: Atraumatic Neck: Supple Respiratory: Clear to auscultation bilaterally Cardiovascular: No edema, Regular rate/rhythm Gastrointestinal: Normal bowel sounds, Soft and benign - Problems (1) Pneumonia Onset Date: 07/25/18 Current Visit: No Status: Acute Plan: Patient is 89 years of age admitted with left upper lobe pneumonia white count normal vital signs all stable patient is apparently very weak CT scan shows a left upper lobe pneumonia he does have a right upper lobe kidney mass seen by urologist in [place] was reluctant to perform any biopsies or procedures patient 's pro calcitonin level is also negative cultures are negative can be changed to p.o. a fluoroquinolone and possible discharge discuss with the relatives to follow up with me been to in 4 weeks with a pre clinic chest x-ray mildly anemic Qualifiers:
--- NOTE | 2019-10-13 13:01 | CON ---
Identification: 89-year-old man. History Of Present Illness: Mr. Cole was brought to the hospital by his family because he was confus ed and disoriented. He remains confused and disoriented. A troponin was drawn and it is abnormal. The patient was not having chest pain. Still is not having chest pain. He has never had myocardial infarction or stroke. He has a huge renal mass that he refused to have biopsied or treated. Has a p ulmonary mass that is thought to be most likely a renal cell metastasis. He has had hemoptysis from it at this point. He has not had a CT scan of his head, but I would be very concerned that he might have renal artery metastasis. I am asked to see him because of his troponin. The patient has not segundo d cardiac disease before. Not having chest pain. His electrocardiogram does not show injury or isch emia. There is a questionable anteroseptal infarct of unknown age. Medications: Have been pravastatin, hydrochlorothiazide, losartan, aspirin, and metoprolol. Physical Examination: General: 5 feet 11 inches, 180 pounds. He is alert. He is disoriented, does not know where he is o r what the time of day or date is. He just knows his name. He does not appear to be in any distress . Lungs: Reveal some decreased breath sounds, especially in the right upper lung field. Heart: Within normal limits. Abdomen: Soft. Extremities: Mild edema. Impression: The patient may well have coronary heart disease, but it is well beyond our ability to t reat him with metastatic renal cell carcinoma that was after full disclosure left untreated. His pro gnosis from the carcinoma is terrible, no matter what we did with his heart that would not change, so I do not recommend pursuing any cardiac treatment other than the symptomatic therapy, nitroglycerin for chest pain. DAMIEN/MODL Voice ID: [id number] Report ID: [id number]
--- NOTE | 2019-10-13 15:04 | PN ---
Date of Progress Note: 10/13/2019 Subjective: Patient seen and examined. Chart reviewed and case discussed with RN and Grain Operator. Son at the bedside. Treatment plan explained. All questions answered. Patient is much more awake and alert this morning. Medications: List reviewed. Physical Examination: Vital Signs: Temperature 97.3, heart rate 76, blood pressure 134/80, respirations 17, O2 98% on room air. General: Awake, alert, oriented x2. Elderly male, not in any acute distress. CV: S1, S2. Regular rate and rhythm. Peripheral pulses weak. Respiratory: Diminished breath sounds on the right. No wheezing or stridor. No use of accessory muscles. Gastrointestinal: Abdomen is soft, nontender, nondistended. Positive bowel sounds. Extremities: No clubbing, cyanosis. Trace pedal edema. Neurologic: Nonfocal. Laboratory Data: Sodium 144, potassium 4.4, chloride 114, CO2 20, BUN 17, creatinine 1.10, glucose 72, calcium 8.8, albumin 2. WBC 8.3, H and H 10.3 and 32.7, platelets 221. Blood cultures, no growth to date. UA pending at this time. Urine culture, no growth to date as well. Sputum cultures are also pending. Assessment And Plan: 89-year-old male with: 1. Acute metabolic encephalopathy, likely related to urinary tract infection, pneumonia, improved, now back to baseline. 2. Right upper lobe pneumonia, likely postobstructive. CT scan shows possible malignancy with metastatic mass from the right kidney. Pulmonology has been consulted. We will continue with IV antibiotics and follow up on cultures. 3. Large right renal carcinoma, 8.5 cm. Patient has been diagnosed previously. They did not wish to pursue any further diagnostic testing or treatment. They understand that this lesion has now possibly metastasized to the lung and the patient has an overall poor prognosis. 4. Essential hypertension, stable. 5. Hypothermia, resolved. 6. Status post fall. We will continue with physical therapy. 7. Generalized osteoarthritis, stable. 8. Benign prostatic hypertrophy. Continue home medications, stable. 9. Severe protein calorie malnutrition. Continue with supplements. Disposition: Likely discharge in the next 24-48 hours depending on clinical improvement. Overall, patient has a poor prognosis. Would recommend DNR for the patient, however, patient's family wants full code at this time. They understand his overall prognosis is poor. Bak[employer] Checker consult to help family with medical power of family law attorney and living well. /KELLEY Voice ID: [id number] Report ID: [id number] MTDD
[2019-10-13] MEDS: ENOXAPARIN 30 MG/0.3 ML SQ SCH (16:24)
[2019-10-13] MEDS: ATORVASTATIN 10 MG TAB PO SCH (20:15)
[2019-10-13 21:11] VITALS: O2SAT 97
[2019-10-14 05:55] LABS: Absolute Lymphocytes (CBC) 1.5 K/uL (0.7-4.9); Basophils % 0.7 % (0-1.3); Hematocrit 29.9 % (39.6-49.0); Lymphocytes % 22.6 % (15.3-44.8); MPV 10.3 fL (7.6-11.3); RBC Red Blood Cell Count 3.64 M/uL (4.33-5.43)
[2019-10-14 06:04] LABS: Albumin 1.9 g/dL (3.4-5.0); Bilirubin Total 0.2 mg/dL (0.2-1.0); Potassium 3.2 mmol/L (3.5-5.1); Protein, Total 5.8 g/dL (6.4-8.2)
[2019-10-14] MEDS: CEFTRIAXONE/SWI 1gm 1 GM/10 ML SYR IVP SCH (09:02)
[2019-10-14] MEDS: ASPIRIN 81 MG CHEWABLE TABLET PO SCH (09:02)
[2019-10-14] MEDS: AZITHROMYCIN IV 500 MG in NA CHLORIDE 0.9% 250 ML IVPB SCH (09:02)
--- NOTE | 2019-10-14 11:32 | PN ---
Mr. Cole is stable. He probably should be changed to a do not resuscitate status. Regarding his mil d elevation in troponin, it is without ST changes or chest pain. I think it is a nonspecific rise. I would not recommend a cardiac cath. He has what looks like kidney cancer, probably with metastasis . So, at this point, I will sign off as a franchise field consultant. DAMIEN/KELLEY Voice ID: [id number] Report ID: [id number]
[2019-10-14 12:58] VITALS: BP 149/67; TEMP 98.9
--- NOTE | 2019-10-14 14:38 | RAD REPORT ---
EXAM DESCRIPTION: RAD - Chest Pa And Lat (2 Views) - 10/14/2019 2:09 pm CLINICAL HISTORY: for monitoring, right lung mass, known right renal mass COMPARISON: Chest Single View dated 10/12/2019; Chest Single View dated 08/18/2019; Chest Single View dated 07/21/2018; Chest Abd Pelvis Wo Con dated 07/21/2018 TECHNIQUE: Frontal and lateral views of the chest were obtained. FINDINGS: The lungs are normal volume. Right midlung field mass density has not changed. No new reyes g mass identified. Heart size is normal and central vasculature is within normal limits. No pleural effusion or pneumothorax seen. No acute bony finding noted. No aortic abnormality. IMPRESSION: Right midlung field mass showing no change back to the August 2019 chest imaging. As previously detailed, the patient has a large right renal mass. The primary or metastatic malignanc y would be a primary consideration for the right lung mass. Persistent or recurrent pneumonia is cons idered less likely.
--- NOTE | 2019-10-15 00:56 | DS ---
Date of Discharge: 10/14/2019 Consultants: Dr. Evans with Cardiology, Dr. Bansal with Pulmonology. Admitting Diagnoses: 1.Acute metabolic encephalopathy. 2.Right upper lobe pneumonia. 3.Urinary tract infection. 4.Large right renal carcinoma, 8.5 cm. 5.Essential hypertension. 6.Hypothermia. 7.Status post fall. 8.Generalized osteoarthritis. 9.Benign prostatic hypertrophy. Discharge Diagnoses: 1.Acute metabolic encephalopathy, resolved, back to baseline. 2.Mild cognitive impairment. 3.Right upper lobe pneumonia likely postobstructive, not considered to be metastatic lesion per Pulm onology. 4.Large right renal carcinoma, 8.5 cm. Patient does not want any further diagnosis or treatment. 5.Essential hypertension. 6.Hypothermia, corrected. 7.Status post fall. 8.Benign prostatic hypertrophy. 9.Severe protein-calorie malnutrition. Hospital Course: Patient is an elderly gentleman, 89-year-old male who lives at home, ambulates with assist, comes in after a fall, being found down. Patient was hypothermic, confused, found to have U TI and pneumonia. Pneumonia was thought to be postobstructive possible mass on imaging studies. Giv en his history of renal cell carcinoma, the patient and the family have been aware of this carcinoma. They follow specialist in [place]. They have not pursued any further diagnostics or treatment for this as do not wish for him to undergo intensive chemotherapy or radiation therapy. Patient was als o found to be hypothermic. He was passively rewarmed. Patient was started on IV antibiotics. Pulmo nology was consulted for pneumonia and possible mass. Dr. Bansal did not feel that this was metast atic lesion. He felt that this was likely pneumonia. The patient's condition improved. He was not requiring supplemental oxygen on the day of discharge. He was able to ambulate with assist with Phys ical Therapy. I spoke at length with his son who did not wish to pursue correction facility [employer]. They understand that the patient has risk for falls. He needs continued monitoring and woul d benefit from rehab such as correction facility, however, did not wish to pursue skilled nursin g facility at this time. Patient is also not agreeable. Patient was then set-up with physical thera py at home. Patient did have mild elevated troponin level. This was evaluated by Cardiology. They did not feel that the patient needed any sort of heart catheterization, not consistent with NSTEMI. Patient does have heart disease. However, the patient is not a good candidate for invasive treatment due to his cancer. Patient did have some mild electrolyte abnormalities, which were corrected. Ove rall, he did well. His baseline mental status was normalized and the patient was then discharged nayana with home health care to follow up with primary care physician in 2-3 days, follow up with pulmonol ogist, Dr. Bansal in 2 weeks, follow up with urologist at [place] in 2 weeks. Return to ER for wo rsening condition. Medications: As per medication reconciliation list. Physical Examination: General: Awake, alert, oriented x2. No acute distress, elderly male. CV: S1, S2. Respiratory: Diminished breath sounds. Moving air well Gastrointestinal: Abdomen is soft, nontender, nondistended. Positive bowel sounds. Extremities: No clubbing, cyanosis, edema. Neurologic: Nonfocal. Total time spent discharging the patient was 33 minutes. /KELLEY Voice ID: [id number] Report ID: [id number]
== END 2019-10-14 17:20 | disposition home health service (06) | DRG 193 ==
LOC: ER 07:03 → ERHOLD 10:39 → 2ND 13:36
PROVIDERS: ADMIT Family Medicine; ATTEND Family Medicine
DX: J18.9 Pneumonia, unspecified organism (principal); G93.41 Metabolic encephalopathy; E43 Unspecified severe protein-calorie malnutrition; E87.2 Acidosis; C64.1 Malignant neoplasm of right kidney, except renal pelvis; N39.0 Urinary tract infection, site not specified; G31.84 Mild cognitive impairment of uncertain or unknown etiology; I10 Essential (primary) hypertension; T68.XXXA Hypothermia, initial encounter; N40.0 Benign prostatic hyperplasia without lower urinary tract symptoms; Z68.25 Body mass index [BMI] 25.0-25.9, adult; Z86.73 Personal history of transient ischemic attack (TIA), and cerebral infarction without residual deficits; M15.9 Polyosteoarthritis, unspecified
CPT/HCPCS: 36415; 70450; 71045; 71046; 71260; 72125; 74177; 80048; 80053; 80076; 81003; 81015; 82550; 82947; 83605; 83735; 83880; 84145; 84443; 84484; 85025; 85610; 87040; 87086; 87088; 93005; 94760; 96361; 96365; 96366; 96375; 97116; 97161; 97530; 99285; J0456; J0696; J1650; J7030; Q9967

== ENCOUNTER 2019-10-28 13:36 | Inpatient (IN) | payer OTHER ==
--- OUTSIDE RECORDS SUMMARY | 2019-10-28 13:38 | XMS REPORT ---
:1930 [facility] Address [address] [place] [address] Care Team Providers Name Role Phone ROGE [...] Acid (test code=UA) 6.6 mg/dL 3.4-7.0 Lipid [id number] 00:28:00 Test Item Value Reference Range Comments Cholesterol (test 162 mg/dL 0-200 code=CHOL) Triglycerides (test 220 mg/dL 9-200 Unable to calculate, Trig >400 code=TRIG) HDL (test code=HDL) 32 mg/dL 40-60 Chol/HDL (test 5.1 Ratio 0.0-5.0 code=CHOLPHDL) LDL, Calculated (test 86 mg/dL 0-130 (NOTE)RISK OF HEART code=LDLC) DISEASEPublished by [place] Heart AssociationAnalyte Optimal Boderline Increased RiskCHOL <200 200-239 >240TRIG <150 150-199 >200HDL Male: >60 <40HDL Female: >60 <50LDL <100 130-159 >160LDL NEAR OPTIMAL IS 100-129 VLDL (test code=VLDL) 44 mg/dL 5-40 LDL/HDL (test code=LDLPHDL) 3
--- NOTE | 2019-10-28 14:32 | RAD REPORT ---
EXAM DESCRIPTION: CT - [id number] - 10/28/2019 2:24 pm CLINICAL HISTORY: Trauma, head and neck injury. AMS, fall COMPARISON: No comparisons TECHNIQUE: Axial 5 mm thick images of the head were obtained. Axial 2 mm thick images of the cervical spine were obtained with sagittal and coronal reconstruction images generated and reviewed. All CT scans are performed using dose optimization technique as appropriate and may include automated exposure control or mA/KV adjustment according to patient size. FINDINGS: CT HEAD WITHOUT CONTRAST: No acute hemorrhage, hydrocephalus or extra-axial collection is identified.Mild generalized brain atr ophy.No areas of brain edema or midline shift. The paranasal sinuses and mastoids are clear.The calvarium is intact. CT CERVICAL SPINE WITHOUT CONTRAST: No fracture or subluxation.Moderate multilevel cervical degenerative changes.No prevertebral soft tis sues swelling is identified. IMPRESSION: No acute intracranial or cervical spine findings. Moderate cervical spondylosis.
[2019-10-28] MEDS ORDERED: NA CHLORIDE 0.9% 500 ML ONE (14:39)
[2019-10-28 15:36] LABS: Absolute Lymphocytes (CBC) 1.2 K/uL (0.7-4.9); Basophils % 0.8 % (0-1.3); Hematocrit 33.2 % (39.6-49.0); Lymphocytes % 10.6 % (15.3-44.8); MPV 10.1 fL (7.6-11.3); RBC Red Blood Cell Count 4.08 M/uL (4.33-5.43)
--- NOTE | 2019-10-28 15:46 | RAD REPORT ---
EXAM DESCRIPTION: RAD - Chest Single View - 10/28/2019 3:32 pm CLINICAL HISTORY: COUGH Chest pain. COMPARISON: Chest Pa And Lat (2 Views) dated 10/14/2019; Chest Single View dated 10/12/2019; Chest Sing le View dated 08/18/2019; Chest Single View dated 07/21/2018 FINDINGS: Portable technique limits examination quality. Right mid lung density is again seen, unchanged since most recent comparative radiographs. No new pul monary finding. The heart is normal in size. No displaced fractures.
--- NOTE | 2019-10-28 15:47 | RAD REPORT ---
EXAM DESCRIPTION: RAD - Knee Right 3 View - 10/28/2019 3:32 pm CLINICAL HISTORY: Fall injury, abrasion COMPARISON: No comparisons FINDINGS: Prominent tricompartmental osteoarthritis is seen. Small suprapatellar joint effusion is p resent. 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 No evidence of acute fracture.
[2019-10-28 16:12] LABS: ALT/SGPT 15 U/L (12-78); AST/SGOT 26 U/L (15-37); Albumin 2.5 g/dL (3.4-5.0); Alkaline Phosphatase 67 U/L (45-117); Amylase Level 83 U/L (25-115); BUN Blood Urea Nitrogen 20 mg/dL (7-18); Bicarbonate 30 mmol/L (21-32); Bilirubin Direct 0.1 mg/dL (0-0.2); Bilirubin Total 0.5 mg/dL (0.2-1.0); CKMB Creatine Kinase MB < 1.0 ng/mL (0.3-3.6); Creatine Phosphokinase 92 U/L (39-308); Glucose Level 97 mg/dL (74-106); Lipase 55 U/L (73-393); Potassium 4.8 mmol/L (3.5-5.1); Protein, Total 7.6 g/dL (6.4-8.2); Sodium Level 143 mmol/L (136-145); Troponin (Emerg Dept Use Only) 0.12 ng/mL (0.0-0.045)
[2019-10-28 16:27] LABS: Blood Morphology Comment NOT SEEN (NOT SEEN); Platelet Estimate ADEQ; Urine White Blood Cell Casts OK
[2019-10-28 16:41] LABS: Urine Bacteria <20 /HPF (NONE SEEN); Urine Culture Reflex Order NOT NEEDED; Urine RBC <5 /HPF (NONE SEEN)
[2019-10-28 16:42] LABS: Calcium Oxalate Crystals- Ur PRESENT (NONE SEEN); Urine Mucus 2+ /HPF (NONE SEEN); Urine Yeast PRESENT (NONE SEEN)
--- NOTE | 2019-10-28 17:40 | ER ---
Nurse's Notes [facility] Name: Rupert Cole Jr Age: 89 yrs Sex: Male : 1930 Arrival Date: 10/28/2019 Time: 13:37 Bed 8 Private MD: Diagnosis: Tachycardia, unspecified;Altered mental status, unspecified;Fall on same level from slipping, tripping and stumbling;Abrasion, right knee;Pain in right shoulder;Candidiasis of other urogenital sites Presentation: 10/28 13:38 Presenting complaint: EMS states: Pt found by neighbors outside of home, disoriented ph and had fallen, abrasion to sustained to R knee, initial HR in 170s, lasted approx 10 min however pt was asymptomatic, pt lives at home w/ family, recently admitted for pneumonia. Transition of care: patient was not received from another setting of care. Onset of symptoms was October 28, 2019. Risk Assessment: Do you want to hurt yourself or someone else? Patient reports no desire to harm self or others. Initial Sepsis Screen: Does the patient meet any 2 criteria? HR > 90 bpm. Does the patient have a suspected source of infection? No. Patient's initial sepsis screen is negative. 13:38 Method Of Arrival: EMS: [facility] 13:38 Acuity: NHUNG 3 ph 13:38 Care prior to arrival: None. ph Historical: - Allergies: 13:43 No Known Allergies; ph - Home Meds: 13:43 losartan 50 mg Oral tab 1 tab once daily [Active]; hydrochlorothiazide 12.5 mg Oral cap ph 1 cap once daily [Active]; metoprolol tartrate 50 mg Oral tab once daily [Active]; pravastatin 80 mg Oral tab 1 tab once daily [Active]; amlodipine 5 mg tab 1 tab once daily [Active]; aspirin 81 mg Oral chew 1 tab once daily [Active]; - PMHx: 13:43 High Cholesterol; Hypertension; kidney CA; ph - Immunization history:: Adult Immunizations unknown. - Coronavirus screen:: The patient has NOT traveled to [place], [place], or [place] in the past 14 days. The patient has NOT had contact with known/suspected case of Coronavirus?. - Social history:: Smoking status: Patient denies any tobacco usage or history of. - Ebola Screening: : No symptoms or risks identified at this time. Screenin:22 Abuse screen: Denies threats or abuse. Denies injuries from another. Nutritional ph screening: No deficits noted. Tuberculosis screening: No symptoms or risk factors identified. Fall Risk Fall in past 12 months (25 points). No secondary diagnosis (0 pts). No IV (0 pts). Ambulatory Aid- None/Bed Rest/Nurse Assist (0 pts). Gait- Weak (10 pts.). Mental Status- Overestimates/Forgets Limitations (15 pts.). Total Doyle Fall Scale indicates High Risk Score (45 or more points). Fall prevention measures have been instituted. Side Rails Up X 2 Placed Close to Nursing Station Frequent Obs/Assessments Occuring Family Present and informed to notify staff if the need to leave the bedside As available patient and family educated on Fall Prevention Program and Strategies. Assessment: 14:00 General: Appears in no apparent distress. comfortable, slender, Behavior is calm, ph cooperative, appropriate for age. Pain: Complains of pain in right knee. Neuro: Level of Consciousness is awake, alert, obeys commands, Oriented to person, place. Cardiovascular: Capillary refill < 3 seconds in bilateral fingers Patient's skin is warm and dry. Respiratory: Airway is patent Respiratory effort is even, unlabored, Respiratory pattern is regular, symmetrical, Denies shortness of breath Parent/caregiver reports the patient having cough that is productive. GI: Patient currently denies abdominal pain, diarrhea, nausea, vomiting. Derm: Skin is intact, is fragile, is thin, Skin is normal. Musculoskeletal: Circulation, motion, and sensation intact. Range of motion: intact in all extremities. Injury Description: Abrasion sustained to right knee. 15:26 Reassessment: Patient appears in no apparent distress at this time. Patient and/or ph family updated on plan of care and expected duration. Pain level reassessed. Patient is alert, oriented x 3, equal unlabored respirations, skin warm/dry/pink. Unable to obtain IV access, however small amount of blood was obtained and sent to lab, pt refusing further IV or blood work at this time, family at bedside, ERP notified of pt refusal. 17:04 Reassessment: Patient appears in no apparent distress at this time. Patient and/or ph family updated on plan of care and expected duration. Pain level reassessed. Pt c/o R shoulder pain, family at bedside states, " We checked the cameras at home and it does look like he fell on that shoulder", ERP notified, Xray ordered. 18:13 Reassessment: Patient appears in no apparent distress at this time. Patient and/or ph family updated on plan of care and expected duration. Pain level reassessed. Patient is alert, oriented x 3, equal unlabored respirations, skin warm/dry/pink. Dr Aggarwal at bedside to speak w/ pt and family, requesting that IV be started before pt being taken to room. Vital Signs: 13:40 BP 106 / 66; Pulse 104; Resp 18; Pulse Ox 98% ; ph 13:44 Temp 97.5(O); ph 14:58 BP 129 / 66; Pulse 89; Resp 19 S; Pulse Ox 99% on R/A; jl7 15:25 BP 129 / 66; Pulse 90; Resp 18; Pulse Ox 98% on R/A; ph 16:34 BP 151 / 75; Pulse 95; Resp 18; Pulse Ox 99% on R/A; ph 17:38 BP 130 / 67; Pulse 93; Resp 18; Pulse Ox 98% on R/A; ph 18:05 BP 117 / 63; Pulse 96; Resp 16; Temp 97.4; Pulse Ox 99% on R/A; ph 18:52 BP 135 / 85; Pulse 91; Resp 18; Pulse Ox 99% on R/A; ph ED Course: 13:37 Patient arrived in ED. ph 13:39 Jevon Vieira NP is PHCP. pm1 13:39 Andres Singletary MD is Attending Physician. pm1 13:40 Triage completed. ph 13:43 Arm band placed on Patient placed in an exam room, on a stretcher, on graduate assistant athletic trainer, ph on pulse oximetry. 14:24 CT Head C Spine In Process Unspecified. EDMS 14:41 Lashon Castellano, DANIELA is Primary Nurse. ph 14:50 Missed attempt(s): 22 gauge in left antecubital area. Bleeding controlled, band aid jb1 applied, catheter tip intact. 14:57 Missed attempt(s): 22 gauge in left hand. Bleeding controlled, band aid applied, jl7 catheter tip intact. 15:22 Initial lab(s) drawn, by me, sent to lab. Missed attempt(s): 22 gauge in right ph antecubital area. Bleeding controlled, band aid applied, catheter tip intact. 15:23 Patient has correct armband on for positive identification. Placed in gown. Bed in low ph position. Call light in reach. Side rails up X 1. shipping lead person on. Pulse ox on. NIBP on. Door closed. Noise minimized. Warm blanket given. 15:33 Chest Single View XRAY In Process Unspecified. EDMS 15:33 Knee Right 3 View XRAY In Process Unspecified. EDMS 15:53 Urine collected: clean catch specimen. jl7 17:37 Vishal Aggarwal MD is Hospitalizing Provider. pm1 18:14 No provider procedures requiring assistance completed. ph 18:51 Missed attempt(s): 22 gauge in right hand. Missed attempt(s): 20 gauge in right ph antecubital area. per Jevon Oliver NP. Bleeding controlled, band aid applied, catheter tip intact. Missed attempt(s): 20 gauge in right EJ, per Benito Escoto. Bleeding controlled, band aid applied, catheter tip intact. 19:15 Inserted 18 gauge 10 cm midline to right upper arm brachial vein on first attempt. Line fc with good blood return and flushes well. 19:38 Patient admitted, IV remains in place. lp1 Administered Medications: 18:04 Not Given (Other Intervention Used): NS 0.9% 500 ml IV at bolus once ph 18:13 Drug: DiFLUcan 150 mg Route: PO; ph 19:40 Follow up: Response: No adverse reaction lp1 19:15 Drug: NS 0.9% 500 ml Route: IV; Rate: bolus; Site: right upper arm; fc 19:40 Follow up: IV Status: Infusion continued upon admission lp1 Outcome: 17:39 Decision to Hospitalize by Provider. pm1 19:38 Admitted to Tele accompanied by nurse, via stretcher, room 402, with chart, Report lp1 called to DANIELA Scales 19:38 Condition: stable 19:38 Instructed on the need for admit. 19:40 Patient left the ED. lp1 Signatures: Dispatcher [employer] EDMS Tobi Harris Felicia, RN RN fc Natalia Rand RN RN lp1 Lashon Castellano RN RN Jevon Vieira, JOANIE NEWS VIDEOGRAPHER pm1 Mariscal, Jahala, RN RN jl7
--- NOTE | 2019-10-28 17:40 | EDPHYS ---
Physician Documentation [facility] Name: Rupert Cole Jr Age: 89 yrs Sex: Male : 1930 Arrival Date: 10/28/2019 Time: 13:37 Bed 8 Private MD: ED Physician Andres Singletary HPI: 10/28 19:22 This 89 yrs old Black Male presents to ER via EMS with complaints of Altered Mental pm1 Status, Fall Injury. 19:22 The patient presents with Wandering outside per family. Patient did this two weeks ago pm1 and was diagnosed with pneumonia. Onset: The symptoms/episode began/occurred just prior to arrival. Possible causes: unknown. Associated signs and symptoms: Pertinent positives: occasional cough onset today, Pertinent negatives: chest pain, shortness of breath. Patient's baseline: Neuro: alert and fully oriented, Motor: no deficits, Ambulation: walks with assist only, uses cane. Patient was walking outside the front of his house and slipped on the wet grass. He landed on his right shoulder and right knee according to the home cameras per family. Patient denies any pain on arrival. When EMS arrived on the scene, he had tachycardia, SVT with heart rates of 170's. EMS reports sustained for a time period of 10-15 minutes. As EMS attempted to put an IV, his heart rate dropped to 110's. EMS reports patient was not symptomatic for his elevated heart rate at that time. Historical: - Allergies: 13:43 No Known Allergies; ph - Home Meds: 13:43 losartan 50 mg Oral tab 1 tab once daily [Active]; hydrochlorothiazide 12.5 mg Oral cap ph 1 cap once daily [Active]; metoprolol tartrate 50 mg Oral tab once daily [Active]; pravastatin 80 mg Oral tab 1 tab once daily [Active]; amlodipine 5 mg tab 1 tab once daily [Active]; aspirin 81 mg Oral chew 1 tab once daily [Active]; - PMHx: 13:43 High Cholesterol; Hypertension; kidney CA; ph - Immunization history:: Adult Immunizations unknown. - Coronavirus screen:: The patient has NOT traveled to [place], [place], or [place] in the past 14 days. The patient has NOT had contact with known/suspected case of Coronavirus?. - Social history:: Smoking status: Patient denies any tobacco usage or history of. - Ebola Screening: : No symptoms or risks identified at this time. ROS: 19:22 Constitutional: Negative for fever, chills, and weight loss, Eyes: Negative for injury, pm1 pain, redness, and discharge, ENT: Negative for injury, pain, and discharge, Neck: Negative for injury, pain, and swelling. 19:22 Respiratory: Negative for shortness of breath, cough, wheezing, and pleuritic chest pain, Abdomen/GI: Negative for abdominal pain, nausea, vomiting, diarrhea, and constipation, Back: Negative for injury and pain. 19:22 : Negative for injury, bleeding, discharge, and swelling, MS/Extremity: Negative for injury and deformity, Skin: Negative for injury, rash, and discoloration. 19:22 Cardiovascular: Positive for Tachycardia per EMS, Negative for chest pain, edema, sensation of palpiations. 19:22 Neuro: Positive for altered mental status, per family, Negative for headache, loss of consciousness, numbness, tingling. Exam: 19:22 Constitutional: This is a well developed, well nourished patient who is awake, alert, pm1 and in no acute distress. Head/Face: Normocephalic, atraumatic. Eyes: Pupils equal round and reactive to light, extra-ocular motions intact. Lids and lashes normal. Conjunctiva and sclera are non-icteric and not injected. Cornea within normal limits. Periorbital areas with no swelling, redness, or edema. ENT: Nares patent. No nasal discharge, no septal abnormalities noted. Tympanic membranes are normal and external auditory canals are clear. Oropharynx with no redness, swelling, or masses, exudates, or evidence of obstruction, uvula midline. Mucous membranes moist. Neck: Trachea midline, no thyromegaly or masses palpated, and no cervical lymphadenopathy. Supple, full range of motion without nuchal rigidity, or vertebral point tenderness. No Meningismus. Chest/axilla: Normal chest wall appearance and motion. Nontender with no deformity. No lesions are appreciated. 19:22 Respiratory: Lungs have equal breath sounds bilaterally, clear to auscultation and percussion. No rales, rhonchi or wheezes noted. No increased work of breathing, no retractions or nasal flaring. Abdomen/GI: Soft, non-tender, with normal bowel sounds. No distension or tympany. No guarding or rebound. No evidence of tenderness throughout. Back: No spinal tenderness. No costovertebral tenderness. Full range of motion. 19:22 Cardiovascular: Rate: tachycardic, actual rate is 104 bpm, Rhythm: regular, Pulses: no pulse deficits are appreciated, Heart sounds: normal, Edema: is not appreciated. 19:22 Skin: Appearance: normal except for affected area, injury, abrasion(s), small abrasion noted, of the right knee. 19:22 Neuro: Orientation: to person, place, situation, Motor: moves all fours. Vital Signs: 13:40 BP 106 / 66; Pulse 104; Resp 18; Pulse Ox 98% ; ph 13:44 Temp 97.5(O); ph 14:58 BP 129 / 66; Pulse 89; Resp 19 S; Pulse Ox 99% on R/A; jl7 15:25 BP 129 / 66; Pulse 90; Resp 18; Pulse Ox 98% on R/A; ph 16:34 BP 151 / 75; Pulse 95; Resp 18; Pulse Ox 99% on R/A; ph 17:38 BP 130 / 67; Pulse 93; Resp 18; Pulse Ox 98% on R/A; ph 18:05 BP 117 / 63; Pulse 96; Resp 16; Temp 97.4; Pulse Ox 99% on R/A; ph 18:52 BP 135 / 85; Pulse 91; Resp 18; Pulse Ox 99% on R/A; ph MDM: 13:43 Patient medically screened. pm1 17:20 Counseling: I had a detailed discussion with the patient and/or guardian regarding: the pm1 historical points, exam findings, and any diagnostic results supporting the discharge/admit diagnosis, lab results, radiology results, the need for further work-up and treatment in the hospital. 17:33 Data reviewed: vital signs. Data interpreted: Pulse oximetry: on room air is 99 %. pm1 Interpretation: normal. 17:34 Physician consultation: Vishal Aggarwal MD was called at 17:34, was contacted at 17:34, pm1 regarding admission, patient's condition, and will see patient. 17:35 ED course: Patient with SVT on EMS EKG on arrival. Patient with elevated troponin on pm1 labs. Would like to admit the patient for further repeat troponin x 2, possible cardiology evaluation, hydration, and rhythm monitoring. 10/28 13:54 Order name: Amylase, Serum; Complete Time: 16:22 pm10/28 13:54 Order name: Basic Metabolic Panel; Complete Time: 16:22 pm10/28 13:54 Order name: Blood Culture Adult (2) 10/28 13:54 Order name: CBC with Diff; Complete Time: 16:31 pm10/28 13:54 Order name: Ckmb; Complete Time: 16:22 pm10/28 13:54 Order name: CPK; Complete Time: 16:22 pm10/28 13:54 Order name: Lactate 10/28 13:54 Order name: LFT's; Complete Time: 16:22 pm10/28 13:54 Order name: Lipase; Complete Time: 16:22 pm10/28 13:54 Order name: Procalcitonin; Complete Time: 16:22 pm10/28 13:54 Order name: Protime (+inr) 10/28 13:54 Order name: Ptt, Activated 10/28 13:54 Order name: Troponin (emerg Dept Use Only); Complete Time: 16:22 pm10/28 13:54 Order name: Urine Microscopic Only; Complete Time: 16:59 pm10/28 13:54 Order name: Chest Single View XRAY; Complete Time: 15:59 pm10/28 13:54 Order name: Accucheck; Complete Time: 15:36 pm10/28 13:54 Order name: Cardiac monitoring; Complete Time: 15:36 pm10/28 13:54 Order name: EKG - Nurse/Tech; Complete Time: 15:46 pm10/28 13:54 Order name: O2 Per Protocol; Complete Time: 15:36 pm10/28 13:54 Order name: CT Head C Spine; Complete Time: 14:38 pm10/28 13:54 Order name: Knee Right 3 View XRAY; Complete Time: 15:59 pm10/28 15:30 Order name: Glucose, Ancillary Testing; Complete Time: 15:36 EDMS 10/28 15:53 Order name: Urine Dipstick--Ancillary (enter results) eb 10/28 16:27 Order name: CBC Smear Scan; Complete Time: 16:31 EDMS 10/28 16:54 Order name: Shoulder Right (2 View) XRAY ph 10/28 13:54 Order name: O2 Sat Monitoring; Complete Time: 15:36 pm1 10/28 13:54 Order name: Urine Dipstick-Ancillary (obtain specimen); Complete Time: 15:53 pm1 Administered Medications: 18:04 Not Given (Other Intervention Used): NS 0.9% 500 ml IV at bolus once ph 18:13 Drug: DiFLUcan 150 mg Route: PO; ph 19:40 Follow up: Response: No adverse reaction lp1 19:15 Drug: NS 0.9% 500 ml Route: IV; Rate: bolus; Site: right upper arm; fc 19:40 Follow up: IV Status: Infusion continued upon admission lp1 Disposition: 10/28/19 17:39 Hospitalization ordered by Vishal Aggarwal for Observation. Preliminary diagnosis are Tachycardia, unspecified, Altered mental status, unspecified, Fall on same level from slipping, tripping and stumbling, Abrasion, right knee, Pain in right shoulder, Candidiasis of other urogenital sites. - Bed requested for Telemetry/MedSurg (observation). - Status is Observation. lp1 - Condition is Stable. - Problem is new. - Symptoms have improved. UTI on Admission? No Addendum: 10/29/2019 21:18 Co-signature as Attending Physician, Andres Singletary MD I agree with the assessment and k dr plan of care. Signatures: Dispatcher [employer] [facility] Andres Singletary MD MD [facility] Sana Caceres RN RN Natalia Rand RN RN lp1 Lashon Castellano RN RN Jevon Vieira, JOANIE SOCIAL WORKER pm1 Symone Bhatia Corrections: (The following items were deleted from the chart) 10/28 17:39 17:39 Hospitalization Ordered by Vishal Aggarwal MD for Observation. Preliminary diagnosis pm1 is Tachycardia, unspecified; Altered mental status, unspecified; Fall on same level from slipping, tripping and stumbling; Abrasion, right knee; Pain in right shoulder. Bed requested for Telemetry/MedSurg (observation). Status is Observation. Condition is Stable. Problem is new. Symptoms have improved. UTI on Admission? No. pm1 17:54 17:39 10/28/2019 17:39 Hospitalization Ordered by Vishal Aggarwal MD for Observation. eb Preliminary diagnosis is Tachycardia, unspecified; Altered mental status, unspecified; Fall on same level from slipping, tripping and stumbling; Abrasion, right knee; Pain in right shoulder; Candidiasis of other urogenital sites. Bed requested for Telemetry/MedSurg (observation). Status is Observation. Condition is Stable. Problem is new. Symptoms have improved. UTI on Admission? No. pm1 19:40 17:54 10/28/2019 17:39 Hospitalization Ordered by Vishal Aggarwal MD for Observation. lp1 Preliminary diagnosis is Tachycardia, unspecified; Altered mental status, unspecified; Fall on same level from slipping, tripping and stumbling; Abrasion, right knee; Pain in right shoulder; Candidiasis of other urogenital sites. Bed requested for Telemetry/MedSurg (observation). Status is Observation. Condition is Stable. Problem is new. Symptoms have improved. UTI on Admission? No. eb
[2019-10-28] MEDS ORDERED: FLUCONAZOLE 100 MG TAB ONE (18:11)
--- NOTE | 2019-10-28 19:37 | HP ---
Date of Admission: 10/28/2019 Primary Care Physician: Out of town. Chief Complaint: Altered mental status, SVT, fall. Code Status: Full. Patient does not have a medical power of commercial litigation attorney. X Ray Nurse: Dr. Evans, Cardiology. History Of Present Illness: Patient is an 89-year-old male with past medical history of CVA, hypertension, arthritis, history of kidney cancer, does not wish to have any further diagnosis or treatment, who was recently discharged from the hospital on 10/14/2019, comes in with a fall on the right side and altered mental status. Patient had completed course of antibiotics. He was found to have pneumonia and was seen by Pulmonology previously as well. There was some debate whether this opacification was possibly due to spread of his kidney cancer, which is a possibility. Patient overall did well at previous admission. Since then, he had completed his antibiotics and today, he was found to be somewhat confused, had another mechanical fall. Previous admission , they had refused to transfer the patient to [facility] as the patient was not agreeing to it and family wanted home health with PT. Patient' s symptoms are constant, moderate, progressively worsening. His workup here revealed normal white blood cell count. His troponin was somewhat elevated at 0.12. When EMS brought him, he was in SVT, rate of 170s. They were unable to procure any labs for him, but it seems that he had a vagal episode when they were trying to put an IV in and converted back to sinus rhythm. Patient's head CT and cervical spine were negative for any acute fractures. Knee x-ray showed some effusion and arthritis, no fracture. Chest x-ray again shows right mid- lung density unchanged. Patient was then referred for admission for further evaluation. When seen in the ER, he was awake, alert, oriented to person, place , and year. He recognized me from the previous admission. Past Medical History: Hypertension; CVA in 2014; generalized osteoarthritis; dementia, likely vascular; renal cancer on the right, opting not for further diagnosis and treatment, now with possible lung mass. Past Surgical History: Abdominal surgery, prostate surgery. Allergies: NO KNOWN DRUG ALLERGIES. Medications: List reviewed. Social History: Patient denies any tobacco use, alcohol use, or illicit drug use. Lives at home with his son. Does not use any assistive ambulatory devices. However, he has been working with physical therapy and has recent falls. Family History: Noncontributory in this 89-year-old male. Review of Systems: Ten-point system reviewed, negative except as per HPI. Physical Examination: Vital Signs: Blood pressure 106/66, pulse 104, respirations 18, O2 of 98%, temperature 97.5. General: Awake, alert, oriented x3, in some mild distress, complaining of some pain in his right shoulder, elderly male, frail. HEENT: Normocephalic, atraumatic. PERRLA. EOMI. Dry mucous membranes. Oropharynx is clear. Conjunctivae are anicteric. Poor dentition. Neck: Supple. No JVD. Trachea midline. CV: S1, S2. Peripheral pulses are weak bilaterally. Respiratory: Diminished breath sounds on the right. No wheezing or stridor. No use of accessory muscles. Clear to auscultation on the left. Gastrointestinal: Abdomen is soft, nontender, nondistended. Positive bowel sounds. No guarding or rigidity. Extremities: No clubbing, cyanosis, or edema. No calf tenderness. Neuro: Cranial nerves 2 through 12 intact grossly. No focal neurological deficit. Speech is normal. Musculoskeletal: Some tenderness to palpation on the right knee and decreased range of motion as well as tenderness to palpation on the right shoulder. Range of motion is intact. Skin: Patient has an abrasion on the right lower extremity. Psych: Mood is okay. Affect is full. Insight and judgment are fair. Laboratory Data: Sodium 143, potassium 4.8, chloride 108, CO2 of 30, BUN 20, creatinine 1.17, glucose 97, calcium 9.5. Troponin 0.12. Albumin 2.5. Lipase 55. Procalcitonin less than 0.05. WBC 11.1, H and H 10.7 and 33.2, platelets 309, neutrophils 81%. Imaging Studies: Chest x-ray shows right-sided mid lung density seen unchanged from most recent comparative radiographs. No new pulmonary finding. Heart normal in size. Cervical spine and head CT shows no acute hemorrhage, hydrocephalus, or extra-axial collection. Mild generalized brain atrophy. No areas of brain edema or midline shift. Paranasal sinuses and mastoids are clear. Calvarium is intact. CT cervical spine, no acute intracranial or cervical spine findings. Moderate cervical spondylosis. Right knee x-ray shows prominent tricompartmental osteoarthritis. Small suprapatellar joint effusion is present. 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 No evidence of acute fracture. Shoulder x-ray is pending at this time. Assessment And Plan: An 89-year-old male with: 1. Status post fall, mechanical. We will place on fall precautions. Consult Physical Therapy. 2. Supraventricular tachycardia, rate in the 170s, terminated with vagal maneuver inadvertently. We will start on beta-blockers. We will continue to monitor. Consult Cardiology. 3. History of renal cancer. Patient not opting for any further diagnosis or treatment. The mass is on the right side. 4. Right mid-lung density, most likely spreading of his renal cancer, was supposed to see Pulmonology on next week. Again, patient and family are not eager to pursue this diagnosis. 5. History of cerebrovascular accident in 2013. 6. Generalized osteoarthritis. 7. Right knee effusion and abrasion from fall. 8. Hyperlipidemia, mixed. We will continue with statin. 9. Troponin elevation, seems to be around his baseline, previously was 0.13, likely due to demand mismatch and supraventricular tachycardia. No complains of chest pain. Not short of breath. 10. Benign prostatic hypertrophy. Plan: Admit patient to Med-Surg, place as observation. /KELLEY Voice ID: [id number]
--- NOTE | 2019-10-28 19:47 | RAD REPORT ---
EXAM DESCRIPTION: RAD - Shoulder Right 2 View - 10/28/2019 7:38 pm CLINICAL HISTORY: PAIN Fall, pain COMPARISON: Chest Single View dated 10/28/2019 FINDINGS: Moderate AC joint and glenohumeral joint arthritic changes are present. High-riding jaqueline l head is seen. No acute fracture present. [place] density seen in the right mid lung, fully character ized on recent chest radiograph same date.
[2019-10-28] MEDS: NA CHLORIDE 0.9% 1,000 ML IV SCH (19:59)
[2019-10-28] MEDS ORDERED: ONDANSETRON 4 MG/2 ML VIAL IV PRN (19:59)
[2019-10-28] MEDS ORDERED: IPRATROPIUM BROM 0.5MG/2.5ML NEB PRN (19:59)
[2019-10-28] MEDS ORDERED: ACETAMINOPHEN 500 MG TAB PO PRN (19:59)
[2019-10-28] MEDS ORDERED: ALBUTEROL 2.5 MG/3 ML NEB SOL NEB PRN (19:59)
[2019-10-28] MEDS: carvediloL 12.5 MG TAB PO SCH (19:59)
[2019-10-28 20:06] LABS: Protime INR 1.07
[2019-10-28 20:32] VITALS: BMI 21.2
[2019-10-28 22:08] LABS: Urine Blood NEGATIVE (NEG); Urine Glucose NEGATIVE (NEG); Urine Protein 2+ (NEG); Urine Specific Gravity 1.025 (1.005-1.030)
[2019-10-29] MEDS: carvediloL 12.5 MG TAB PO SCH ×2 (05:53→17:31)
[2019-10-29 06:11] LABS: Absolute Lymphocytes (CBC) 1.1 K/uL (0.7-4.9); Basophils % 0.6 % (0-1.3); Hematocrit 31.5 % (39.6-49.0); Lymphocytes % 14.6 % (15.3-44.8); MPV 9.3 fL (7.6-11.3); RBC Red Blood Cell Count 3.85 M/uL (4.33-5.43)
[2019-10-29 06:35] LABS: Albumin 2.4 g/dL (3.4-5.0); Bilirubin Total 0.5 mg/dL (0.2-1.0); Potassium 3.7 mmol/L (3.5-5.1); Protein, Total 7.1 g/dL (6.4-8.2)
[2019-10-29] MEDS ORDERED: LORazepam 2 MG/ML VIAL IV PRN (07:51)
[2019-10-29] MEDS ORDERED: FLEET ENEMA ADULT PR ONE (09:09)
--- NOTE | 2019-10-29 09:53 | RAD REPORT ---
EXAM DESCRIPTION: CT - Head Brain Wo Cont - 10/29/2019 9:34 am CLINICAL HISTORY: Seizure COMPARISON: October 28, 2019 TECHNIQUE: Computed axial tomography of the head was obtained. IV contrast was not requested. All CT scans are performed using dose optimization technique as appropriate and may include automated exposure control or mA/KV adjustment according to patient size. FINDINGS: An intracranial bleed is not seen . The ventricles are normal in caliber. No extra-axial fluid collection is noted. Cerebral atrophy is present Mild low-density areas within periventricular, deep and subcortical white matter likely represent is chemic changes secondary to small vessel disease. Fluid within the sinuses/ mastoids is not seen. IMPRESSION: No acute intracranial abnormality is seen. If patient's symptoms persist MRI of the bra in would be recommended.
[2019-10-29] MEDS: DOCUSATE NA 100 MG CAP PO PRN (10:55)
[2019-10-29] MEDS: FLUCONAZOLE 100 MG TAB PO SCH (10:55)
[2019-10-29] MEDS: ENOXAPARIN 40 MG/0.4 ML SQ SCH (10:55)
[2019-10-29] MEDS: POLYETHYL GLY 3350 17 GM/DOSE PO PRN (10:56)
--- NOTE | 2019-10-29 12:00 | EKG ---
Test Date: 2019-10-28 Test Time: 14:04:00 Agricultural Equipment Salesperson: PATRICIA MEASUREMENT RESULTS: Intervals: Rate: 95 IN: 154 QRSD: 68 QT: 356 QTc: 447 Keeling: P: 68 IN: 154 QRS: 38 T: 52 INTERPRETIVE STATEMENTS: Normal sinus rhythm Anteroseptal infarct, age undetermined Abnormal ECG Compared to ECG 10/12/2019 09:16:28 No significant changes Electronically Signed On 10-29-19 11:59:43 WAISTLINE JOINER by Rom Evans
--- NOTE | 2019-10-29 12:38 | CON ---
History Of Present Illness: Mr. Cole was brought to the hospital by his family. He was found wander ing around in his yard, confused. He had fallen, unable to get up. Patient has been quite confused and debilitated, was in our hospital a few weeks ago. He has right upper lobe consolidation of lung that has been steady over a couple of years and it is thought to be possibly a metastatic mass that i s believed to have renal cell carcinoma, never proven by biopsy, he refused several years ago. Since being in the hospital he has had at least 1 witnessed seizure. He was on telemetry at the time. He was in sinus rhythm, heart rate 80 the whole time he had his seizure. Since being here, the patient 's CAT scan of the head is normal. X-rays of the chest look about the same and it is believed he pro bably does not really have pneumonia, but probably some other mass and certainly a renal cell carcino ma, metastasis is possible if not likely. He does not use tobacco, never had myocardial infarction o r stroke. He earlier seemed to have troponins around 0.1 to 0.15 and this admission is no exception. He takes cholesterol medicines and blood pressure medicines. He is on pravastatin, hydrochlorothia zide, losartan, aspirin, metoprolol, and amlodipine. Physical Examination: General: 5 feet 8, 139 pounds alert, but confused, disoriented. The rest of the exam was unremarkab le. His electrocardiogram shows sinus rhythm. No changes from old EKGs. Possible old anterior CO. With his troponin of 0.12, I would recommend we get an echocardiogram. He needs to have a neurological c onsultation. I think it would be marquez at least to do it. He probably needs some anti-seizure medici ne, perhaps an MRI of the brain would better tell us what is causing his seizures and on the CAT scan there does not seem to be any i ndication for it. DAMIEN/KELLEY Voice ID: [id number] Report ID: [id number]
--- NOTE | 2019-10-29 13:59 | PN ---
Date of Progress Note: 10/29/2019 Subjective: Patient seen and examined. Chart reviewed and case discussed with RN. Family at the [facility]. Patient had seizure this morning when getting up. Remained confused for approximately 10 min utes post activity. Did not require any medications to break the seizure. Family updated. Medication List: Reviewed. Physical Examination: Vital Signs: Temperature 96.9, heart rate 87, blood pressure 91/50, respirations 19, O2 94% on room air. General: Awake, alert, oriented x2. Ill-appearing male, elderly. CV: S1, S2. Regular rate and rhythm. Peripheral pulses weak,. Respiratory: Diminished breath sounds on the right. No wheezing or stridor Gastrointestinal: Abdom en is soft, nontender, nondistended. Positive bowel sounds. Extremities: No clubbing, cyanosis, or edema. Neurologic: Nonfocal. Laboratory Data: Sodium 142, potassium 3.7, chloride 108, CO2 of 29, BUN 18, creatinine 1.18, glucos e 99, calcium 9.1, albumin 2.4. WBC 7.7, H and H 9.9 and 31.5, platelets 280, neutrophils 76%. Imaging Studies: Repeat head CT scan shows no acute intracranial abnormality. Assessment: An 89-year-old male with: 1.Status post fall mechanical. Continue fall precautions, PT, OT. 2.Supraventricular tachycardia, resolved. We will await Cardiology consultation. Continue beta-blo ckers. 3.Acute seizure episode. We will consult neurology, not available until a.m. we will need to do EE G. Place on seizure precautions. Ativan p.r.n. Repeat head CT scan to rule out any mass due to his tory of kidney cancer. 4.History of right renal cancer. Patient and family do not want to pursue any further diagnosis or treatment. 5.Right mid lung density, most likely spreading of his cancer. We will touch base with Pulmonology. 6.History of cerebrovascular accident in 2013, no significant paralysis. 7.Generalized osteoarthritis. 8.Right knee effusion and abrasion from fall. 9.Mixed hyperlipidemia. Continue statin. 10.Troponin elevation, likely due to demand mismatch. 11.Benign prostatic hypertrophy. Continue home medications as appropriate. Plan: Check orthostatic vital signs. Discussed with family. At this time, I will keep him full cod e; however, I would recommend patient going to half-way facility as this is the second fall in this month. They are agreeable. /KELLEY Voice ID: [id number] Report ID: [id number]
[2019-10-29] MEDS: ATORVASTATIN 10 MG TAB PO SCH (20:50)
[2019-10-29] MEDS: NA CHLORIDE 0.9% 1,000 ML IV SCH ×2 (20:58→22:39)
[2019-10-29] MEDS ORDERED: HOME MED 1 EA UNK (Pravastatin Sodium [Pravastatin Sodium] 80 MG) PO SCH (21:00)
[2019-10-30] MEDS: carvediloL 12.5 MG TAB PO SCH ×2 (05:44→17:19)
[2019-10-30 06:15] LABS: Absolute Lymphocytes (CBC) 1.3 K/uL (0.7-4.9); Basophils % 0.4 % (0-1.3); Hematocrit 28.7 % (39.6-49.0); MPV 9.7 fL (7.6-11.3); RBC Red Blood Cell Count 3.49 M/uL (4.33-5.43)
[2019-10-30 06:38] LABS: Bilirubin Total 0.4 mg/dL (0.2-1.0); Potassium 3.8 mmol/L (3.5-5.1); Protein, Total 5.9 g/dL (6.4-8.2)
[2019-10-30] MEDS: ASPIRIN 81 MG CHEWABLE TABLET PO SCH (08:19)
[2019-10-30] MEDS: ENOXAPARIN 40 MG/0.4 ML SQ SCH (08:19)
[2019-10-30] MEDS: FLUCONAZOLE 100 MG TAB PO SCH (08:19)
[2019-10-30] MEDS: NA CHLORIDE 0.9% 1,000 ML IV SCH (08:20)
[2019-10-30] MEDS ORDERED: ENOXAPARIN 40 MG/0.4 ML SQ SCH (09:00)
--- NOTE | 2019-10-30 11:23 | ECHO ---
HEIGHT: 5 ft 8 in WEIGHT: 139 lb 9.6 oz DATE OF STUDY: 10/30/[address]: Rom Evans MD 2-DIMENSIONAL: YES M.MODE: YES DOPPLER: YES COLOR FLOW: YES TDS: NO PORTABLE: NO DEFINITY: NO BUBBLE STUDY: NO DIAGNOSIS: ABNORMAL TROPONIN CARDIAC HISTORY: CATHERIZATION: NO SURGERY: NO PROSTHETIC VALVE: NO PACEMAKER: NO MEASUREMENTS (cm) DIASTOLIC (NORMALS) SYSTOLIC (NORMALS) IVSd 1.2 (0.6-1.2) LA Diam (1.9-4.0) LVEF 76% LVIDd 4.3 (3.5-5.7) LVIDs 2.4 (2.0-3.5) %FS 45% LVPWd 1.3 (0.6-1.2) Ao Diam 2.8 (2.0-3.7) 2 DIMENSIONAL ASSESSMENT: RIGHT ATRIUM: NORMAL LEFT ATRIUM: NORMAL RIGHT VENTRICLE: NORMAL LEFT VENTRICLE: LEFT VENTRICUAR HYPERTROPHY TRICUSPID VALVE: NORMAL MITRAL VALVE: NORMAL PULMONIC VALVE: NORMAL AORTIC VALVE: SCLEROSIS PERICARDIAL EFFUSION: NONE AORTIC ROOT: NORMAL LEFT VENTRICULAR WALL MOTION: NORMAL. DOPPLER/COLOR FLOW: NO AORTIC STENOSIS OR AORTIC REGURGITATION. MILD MITRAL REGURGITATION. COMMENTS: NORMAL LEFT VENTRICULAR EJECTION FRACTION. LEFT VENTRICULAR HYPERTROPHY. AORTIC SCLEROSIS WITH NO AORTIC STENOSIS/ AORTIC REGURGITATION. TECHNOLOGIST: CHITO BAZAN
--- NOTE | 2019-10-30 18:35 | PN ---
Date of Progress Note: 10/30/2019 Subjective: Patient was seen and examined. Chart reviewed and case discussed with RN and Dr. Evans and Dr. Eckert. Patient was doing well. No further seizure episodes. Patient's son at the [facility]. Treatment plan explained. All questions answered. They agree with intermediate facility [facility]. Medication List: Reviewed. Physical Examination: Vital Signs: Temperature 97.3, heart rate 78, blood pressure 125/57, respirations 15, O2 of 99% on r oom air. General: Awake, alert, oriented x3. Elderly male, in some mild distress, ill-appearing, frail. BMI 21. CV: S1, S2. Regular rate and rhythm. Peripheral pulses are weak. Respiratory: Diminished breath sounds on the right, otherwise moving air well bilaterally. No wheez ing or stridor. Gastrointestinal: Abdomen is soft, nontender, nondistended. Positive bowel sounds. No guarding or rigidity. Extremities: No clubbing, cyanosis, or edema. Neurologic: Nonfocal. Laboratory Data: Sodium 145, potassium 3.8, chloride 111, CO2 of 30, BUN 20, creatinine 1.14, glucos e 98, calcium 8.6, albumin 2. WBC 6, H and H 9 and 28.7, platelets 245, neutrophils 66%. Blood cult ures, no growth to date. Echocardiogram shows EF of 76%, left ventricular hypertrophy, aortic sclero sis without stenosis. Assessment And Plan: An 89-year-old male with: 1.Status post recurrent fall. Continue with PT, OT. Fall precautions. May be related to orthostat ic hypotension versus seizure. 2.Supraventricular tachycardia, resolved. Appreciate Cardiology input. Continue beta-blockers. No further recurrence of the supraventricular tachycardia. Echocardiogram shows normal ejection fracti on. 3.Acute seizure episode. Neurology was consulted. We will obtain EEG. Use Ativan p.r.n. Head CT scan is negative for any mass. Patient has history of renal cancer. 4.History of right renal cancer. Patient and family do not want to pursue further diagnosis or sharon tment. 5.Right mid lung density, likely spreading of his cancer. Spoke with Pulmonology. He was supposed to follow up with Dr. Bansal on . This was thought to be pneumonia, but has not really imp roved despite antibiotics. Most likely consideration is metastases. Again, family did not wish to p ursue diagnosis. 6.History of cerebrovascular accident in 2014. No significant weakness. 7.Generalized osteoarthritis, stable. 8.Right knee effusion and abrasion from the fall. 9.Mixed hyperlipidemia. We will continue statin. 10.Troponin elevation, likely due to demand mismatch. Echo shows normal ejection fraction. 11.Benign prostatic hypertrophy, stable. 12.Hypertensive heart disease. Echocardiogram shows left ventricular hypertrophy. Plan: Follow up on EEG and neuro recommendations. Disposition: longterm facility. Patient's fall was when getting up from the bed to go to the bedside commode, may be related to orthostatic hypotension rather than seizure. However, we will ne ed to confirm with EEG. SA/MODL Voice ID: [id number] Report ID: [id number]
[2019-10-30] MEDS: ATORVASTATIN 10 MG TAB PO SCH (20:08)
--- NOTE | 2019-10-30 22:11 | CON ---
Reason For Consultation: Consultation called because of altered mental status. History Of Present Illness: Mr. Cole is an 89-year-old patient with history of stro ke, hypertension, arthritis, kidney cancer, who was recently admitted to the hospital with altered me ntal status and diagnosed with pneumonia. He received IV antibiotics and was discharged just about a week ago. Apparently, the patient's family found him wandering around and was disoriented and not f ollowing instructions. He was brought in back to the hospital where his chest x-ray was repeated and it showed a right mid lung density again. It was compared to the prior study done on the [facility] and today is the 30 of October, it showed no new findings. He had cervical spine CT scan bec ause of possibility of a fall. No acute abnormalities were identified in particular, no fractures. His head CT scan showed mild small-vessel ischemic disease. Electrocardiogram showed normal sinus rh ythm with atrial septal infarct, age undetermined. In hospital, Mr. Cole has remained poorly interac tive, but very alert, tracking and often smiling, but not following commands. Past Medical History: As indicated, and a possible lung mass with potential return of cancer. Surgical History: Abdominal surgery, prostate surgery. Allergies: NO KNOWN DRUG ALLERGIES. Medications: He is on aspirin 81 mg daily, Lipitor 10 mg at night, Coreg 12.5 mg twice daily, Colace 100 mg daily. He is on Lovenox 40 mg subcutaneous daily for DVT prophylaxis, Diflucan 100 mg daily, Atrovent nebulizer, Ativan as needed, Zofran as well. Social History: Per chart review, lives with son. No alcohol, tobacco, or IV drug use. He was work ing with physical therapy when he had a recent fall. He ambulated independently without an assistive device. Family History: Noncontributory. Review of Systems: Unable to perform at this point, the patient is not following instructions and not answering question s, just smiling and looking around. Physical Examination: Vital Signs: Blood pressure 121/60, pulse 71, respiratory rate 15, temperature 97.2, oxygen saturati on 100% on room air. Weight 139 pounds. Height 5 feet 8 inches, BMI 21. General: Mr. Cole is resting in bed. He is in no acute distress. HEENT: He appears normocephalic, atraumatic. Sclerae nonicteric. Oropharynx is moist and pink. Neck: Supple. Chest: Clear. Heart: Regular Extremities: Show no edema or cyanosis. Neurological: He does track. He does respond to his name, but did not follow commands. Moves arms and legs, but spontaneously and on stimulation. He moves them equally well. Tone is normal. Reflex es symmetric. Unable to assess his coordination or gait. Laboratory Studies: WBC 6.0, hemoglobin 10.0, platelets 245. INR 0.07. Chemistries show sodium 145 , potassium 3.8, chloride 111, carbon dioxide 30, BUN 20, creatinine 1.14, glucose ranged from 70 to 99, calcium 8.4. Lactic acid 1.5. Procalcitonin less than 0.05. Liver function studies normal. Ur inalysis shows yeast present, 2+ protein. Anaerobic and aerobic cultures negative x2 sets. Assessment: Mr. Cole is an 89-year-old patient with encephalopathy potentially of multifactorial caprice ology including likely a baseline cognitive impairment and recent pneumonia with toxic encephalopathy . He does not have focal neurologic deficits and his head CT scan is unremarkable for any focal find ings. Plan: 1.EEG may be helpful. 2.Brain MRI stroke protocol may be further helpful, may also shed more light as further potential et iology of his altered mental status. The patient will be followed once EEG and MRI are complete. SUNITA/KELLEY Voice ID: [id number] Report ID: [id number]
[2019-10-31] MEDS: NA CHLORIDE 0.9% 1,000 ML IV SCH ×3 (00:29→14:39)
[2019-10-31] MEDS: carvediloL 12.5 MG TAB PO SCH ×2 (05:34→17:21)
[2019-10-31] MEDS: ENOXAPARIN 40 MG/0.4 ML SQ SCH (09:25)
[2019-10-31] MEDS: ASPIRIN 81 MG CHEWABLE TABLET PO SCH (09:25)
[2019-10-31] MEDS: FLUCONAZOLE 100 MG TAB PO SCH (09:25)
--- NOTE | 2019-10-31 13:35 | P.PN ---
Subjective Date of Service: 10/31/19 Patient has no new complaint. He states he feels fine and desires to go home. No issues overnight. No seizures. Physical Examination - Vital Signs Temperature: 97.0 F Blood Pressure: 133/59 Pulse: 74 Respirations: 16 Pulse Ox (%): 98 - Physical Exam General: In no apparent distress, Oriented x3 HEENT: Mucous membr. moist/pink Neck: Supple, JVD not distended Respiratory: Clear to auscultation bilaterally, Normal air movement Cardiovascular: No edema, Regular rate/rhythm, Normal S1 S2 Gastrointestinal: Normal bowel sounds, Soft and benign, No tenderness Musculoskeletal: No swelling Integumentary: No rashes Neurological: Other (Left facial droop), Abnormal speech Assessment And Plan - Current Problems (Diagnosis) (1) Seizures Current Visit: Yes Status: Acute (2) Opacity of lung on imaging study Current Visit: Yes Status: Acute (3) History of CVA (cerebrovascular accident) Current Visit: Yes Status: Acute (4) Renal cell cancer Current Visit: No Status: Acute Qualifiers: - Plan Patient will benefit from MRI of the brain to assess for seizures and also to look for brain metastasis. EEG requested and the result is pending. Dr. Eckert's input is appreciated. Ativan IV p.r.n. Family is looking at acute rehab placement. Continue PT and OT. All cultures are negative.
--- NOTE | 2019-10-31 20:01 | PN ---
Date of Progress Note: 10/31/2019 Mr. Cole had came in with altered mental status, hypertension, seizure disorder, and dyslipidemia, segundo d a troponin elevation. No chest pain. Dr. Evans ordered an echocardiogram yesterday. Echocardiog chente showed left ventricular hypertrophy. Normal ejection fraction. No wall motion abnormality. Zulma rology consultation is pending. No further cardiac workup is recommended. We will sign off his case . NAHUM/KELLEY Voice ID: [id number] Report ID: [id number]
[2019-10-31] MEDS: ATORVASTATIN 10 MG TAB PO SCH (20:12)
[2019-11-01] MEDS: NA CHLORIDE 0.9% 1,000 ML IV SCH ×2 (01:18→13:44)
[2019-11-01] MEDS: carvediloL 12.5 MG TAB PO SCH ×2 (05:34→18:45)
[2019-11-01] MEDS: FLUCONAZOLE 100 MG TAB PO SCH (08:28)
[2019-11-01] MEDS: DOCUSATE NA 100 MG CAP PO PRN (08:29)
[2019-11-01] MEDS: ENOXAPARIN 40 MG/0.4 ML SQ SCH (08:29)
[2019-11-01] MEDS: POLYETHYL GLY 3350 17 GM/DOSE PO PRN (08:29)
[2019-11-01] MEDS: ASPIRIN 81 MG CHEWABLE TABLET PO SCH (08:29)
--- NOTE | 2019-11-01 12:24 | P.PN ---
Subjective Date of Service: 11/01/19 Patient has new complaint. Family are requesting for admission to acute rehab. The patient states he just wants to go home. No issues overnight. No seizures. He is tolerating diet. Physical Examination - Vital Signs Temperature: 97.9 F Blood Pressure: 172/70 Pulse: 77 Respirations: 18 Pulse Ox (%): 94 - Physical Exam General: Alert, In no apparent distress, Oriented x3 HEENT: Normocephalic, Mucous membr. moist/pink Neck: Supple, JVD not distended Respiratory: Clear to auscultation bilaterally, Normal air movement Cardiovascular: No edema, Regular rate/rhythm, Normal S1 S2 Gastrointestinal: Normal bowel sounds, Soft and benign, Non-distended, No tenderness Musculoskeletal: No swelling Integumentary: No rashes Neurological: Other (Moves all extremities. Left facial droop.) Assessment And Plan - Current Problems (Diagnosis) (1) Seizures Current Visit: Yes Status: Acute (2) Opacity of lung on imaging study Current Visit: Yes Status: Acute (3) History of CVA (cerebrovascular accident) Current Visit: Yes Status: Acute (4) Renal cell cancer Current Visit: No Status: Acute Qualifiers: - Plan I spoke to the next of kin-Son was a great for MRI of the brain. MRI of the brain is ordered. EEG result is pending. Dr. Estevezs is following Ativan IV p.r.n. Family is looking at acute rehab placement. Consult to evaluate for acute rehab placed Continue PT and OT.
[2019-11-01] MEDS: ATORVASTATIN 10 MG TAB PO SCH (21:11)
[2019-11-02] MEDS: NA CHLORIDE 0.9% 1,000 ML IV SCH (03:01)
[2019-11-02 05:55] VITALS: O2SAT 95
--- NOTE | 2019-11-02 09:22 | RAD REPORT ---
EXAM DESCRIPTION: MRI - Brain Wo Cont - 11/02/2019 8:32 am CLINICAL HISTORY: Seizures COMPARISON: October 28, [address] TECHNIQUE: Axial, sagittal, and coronal magnetic images of the brain were obtained. Contrast was not requested FINDINGS: No significant abnormal signal is present within the brain. Diffusion-weighted/ADC mapping does not reveal evidence of acute infarction. The ventricles are normal caliber. Cerebral atrophy. An extra-axial fluid collection is not present Fluid within the sinuses/mastoids is not noted IMPRESSION: No acute abnormality is displayed
[2019-11-02] MEDS: carvediloL 12.5 MG TAB PO SCH (09:47)
[2019-11-02] MEDS: ENOXAPARIN 40 MG/0.4 ML SQ SCH (09:47)
[2019-11-02] MEDS: ASPIRIN 81 MG CHEWABLE TABLET PO SCH (09:47)
[2019-11-02 13:29] VITALS: BP 120/58; TEMP 98.2
--- NOTE | 2019-11-02 14:09 | P.DS ---
Admission Date: 10/29/19 Discharge Date: 11/02/19 Disposition: DC HOME/HOME HEALTH CARE Discharge Condition: FAIR - Problems (1) Seizures Current Visit: Yes Status: Acute (2) Opacity of lung on imaging study Current Visit: Yes Status: Acute (3) History of CVA (cerebrovascular accident) Current Visit: Yes Status: Acute (4) Renal cell cancer Current Visit: No Status: Acute Qualifiers: Brief History of Present Illness: 89-year-old gentleman with a history of renal cancer, recent hospitalization for right middle lobe pneumonia was brought to the emergency department due to a fall and altered mental status. Family also reported patient was wandering around and confused. Images done in the ED were unchanged from previous ones. Chest x-ray demonstrated right midlung opacity unchanged from previous ones. His troponin was mildly elevated. Patient was subsequently admitted for further management. Hospital Course: Patient was admitted to the medical floor. Noted to have a seizure at the following day after hospitalization. Neurology was consulted. MRI of the brain performed did not show any acute changes. Cardiology was consulted for elevated troponin. No further recommendations were made. Noted patient was borderline hypotensive. He was on multiple antihypertensives which were all held. He was placed on Coreg which kept his systolic blood pressure in the 120- 140 range. He was evaluated by physical therapy. Patient noted to ambulate with a walker without any other assistance and deemed not suitable for acute rehab placement as requested by family. Patient declined to go to any other place than home. Patient is placed on Keppra for seizures. He is deemed clinically stable for discharge to home with home health. I also recommended hospice evaluation at home based on his preference not to pursue any further investigations dorothy treatment for his renal cancer. Vital Signs/Physical Exam: Temp Pulse Resp BP Pulse Ox 98.2 F 76 16 120/58 L 97 11/02/19 12:00 11/02/19 12:00 11/02/19 12:00 11/02/19 12:11/02/19 12:00 General: Alert, In no apparent distress, Oriented x3 HEENT: Mucous membr. moist/pink, Sclerae nonicteric Neck: Supple, JVD not distended Respiratory: Clear to auscultation bilaterally, Normal air movement Cardiovascular: No edema, Regular rate/rhythm, Normal S1 S2 Gastrointestinal: Normal bowel sounds, Soft and benign, Non-distended, No tenderness Musculoskeletal: No swelling Integumentary: No erythema Neurological: Normal strength at 5/5 x4 extr Laboratory Data at Discharge: WBC 6.0 K/uL (4.3-10.9) D 10/30/19 05:40 Hgb 9.0 g/dL (13.6-17.9) L 10/30/19 05:40 Hct 28.7 % (39.6-49.0) L 10/30/19 05:40 Plt Count 245 K/uL (152-406) 10/30/19 05:40 PT 12.6 SECONDS (9.5-12.5) H 10/28/19 19:18 INR 1.07 10/28/19 19:18 APTT 28.4 SECONDS (24.3-36.9) 10/28/19 19:18 Sodium 145 mmol/L (136-145) 10/30/19 05:40 Potassium 3.8 mmol/L (3.5-5.1) 10/30/19 05:40 BUN 20 mg/dL (7-18) H 10/30/19 05:40 Creatinine 1.14 mg/dL (0.55-1.3) 10/30/19 05:40 Glucose 98 mg/dL (74-106) 10/30/19 05:40 Total Bilirubin 0.4 mg/dL (0.2-1.0) 10/30/19 05:40 AST 13 U/L (15-37) L 10/30/19 05:40 ALT 12 U/L (12-78) 10/30/19 05:40 Alkaline Phosphatase 54 U/L (45-117) 10/30/19 05:40 Amylase 83 U/L (25-115) 10/28/19 15:15 Lipase 55 U/L (73-393) L 10/28/19 15:15 Home Medications: Aspirin [Maya Chewable Aspirin] 81 mg PO DAILY 10/12/19 Pravastatin Sodium 80 mg PO BEDTIME 10/12/19 Albuterol Neb [Proventil 0.083% Neb Soln] 2.5 mg NEB Q6HP PRN #90 amp 11/02/19 Docusate [Colace Cap*] 100 mg PO DAILY PRN #30 cap 11/02/19 Nebulizer [Aeroneb Go Nebulizer] 1 each MC Q6H #1 each 11/02/19 Polyethyl Gly 3350 [Glycolax*] 17 gm PO DAILY PRN #30 udbot 11/02/19 carvediloL [Coreg*] 12.5 mg PO BID 6AM 6PM #60 tab 11/02/19 levETIRAcetam [Keppra Tab] 500 mg PO BID #60 tab 11/02/19 New Medications: Albuterol Neb [Proventil 0.083% Neb Soln] 2.5 mg NEB Q6HP PRN #90 amp PRN Reason: Shortness Of Breath carvediloL [Coreg*] 12.5 mg PO BID 6AM 6PM #60 tab Docusate [Colace Cap*] 100 mg PO DAILY PRN #30 cap PRN Reason: Constipation levETIRAcetam [Keppra Tab] 500 mg PO BID #60 tab Nebulizer [Aeroneb Go Nebulizer] 1 each MC Q6H #1 each Polyethyl Gly 3350 [Glycolax*] 17 gm PO DAILY PRN #30 udbot PRN Reason: Constipation Diet: AHA Activity: Fall precautions Time spent managing pt's care (in minutes): 42
--- NOTE | 2019-11-03 14:31 | EEG ---
CHART: [id number] TEST ID#: [id number] DATE OF STUDY: 10/30/2019 THE EEG WAS RECORDED PORTABLE IN THE PATIENTS ROOM ON A 17 CHANNEL MACHINE. ELECTRODES WERE APPLIED IN THE USUAL MANNER USING THE INTERNATIONAL 10-20 SYSTEM. THE WAKING BACKGROUND RHYTHM IN THIS RECORD CONSISTS OF FAIRLY WELL DEVELOPED AND FAIRLY WELL ORGANIZED WAVES OF 7.5 HZ., MAXIMAL IN THE POSTERIOR HEAD REGIONS WHICH ATTENUATE NORMALLY WITH EYE OPENING. LOW-VOLTAGE 15-20 HZ ACTIVITY IS EXPRESSED IN THE FRONTAL REGIONS. MODERATE VOLTAGE 6-7 HZ ACTIVITY IS EXPRESSED INTERMITTENTLY IN ALL REGIONS. THERE ARE NO FOCAL OR LATERALIZING FEATURES. NO EPILEPTIFORM ACTIVITY APPEARS. SLEEP OCCURRED NATURALLY. IN ADDITION NORMAL SLEEP PATTERNS ARE PRESENT. HYPERVENTILATION WAS NOT PERFORMED. PHOTIC STIMULATION PRODUCED POOR DRIVING BILATERALLY. IMPRESSION: THIS IS A MILDLY ABNORMAL EEG DUE TO A MILDLY SLOW BACKGROUND. THIS IS A NON-SPECIFIC FINDING INDICATING THE PRESENECE OF A MILD DIFFUSE DISTURBANCE IN CEREBRAL FUNCTION.
== END 2019-11-02 17:01 | disposition home health service (06) | DRG 101 ==
LOC: ER 13:36 → INTOOBSV 17:34 → OBSVTOIN 17:34 → ERHOLD 17:34 → 4TH 19:33 → OBSVTOIN 10-29 10:41
PROVIDERS: ADMIT Family Medicine; ATTEND Internal Medicine
DX: R56.9 Unspecified convulsions (principal); I47.1 Supraventricular tachycardia; C64.1 Malignant neoplasm of right kidney, except renal pelvis; C78.01 Secondary malignant neoplasm of right lung; M15.9 Polyosteoarthritis, unspecified; M25.461 Effusion, right knee; S80.211A Abrasion, right knee, initial encounter; N40.0 Benign prostatic hyperplasia without lower urinary tract symptoms; E78.2 Mixed hyperlipidemia; I10 Essential (primary) hypertension; F01.50 Vascular dementia, unspecified severity, without behavioral disturbance, psychotic disturbance, mood disturbance, and anxiety; R41.82 Altered mental status, unspecified; Z86.73 Personal history of transient ischemic attack (TIA), and cerebral infarction without residual deficits; W19.XXXA Unspecified fall, initial encounter
CPT/HCPCS: 36415; 70450; 70551; 71045; 72125; 80048; 80053; 80076; 81003; 81015; 82150; 82550; 82553; 82947; 83605; 83690; 84145; 84484; 85025; 85610; 85730; 87040; 93005; 93306; 94760; 95819; 97116; 97161; 97530; 99285; G0378; J1650; J7030; J7040